=== PATIENT | male | born 1985 | race African-American/Black ===

== ENCOUNTER 2019-01-13 14:02 | Emergency (ER) | payer BC, OTHER ==
[2019-01-13] MEDS ORDERED: MAGNE/ALUM HYDROXD 30 ML UCUP ONE (18:41)
[2019-01-13] MEDS ORDERED: LIDOCAINE VISCOUS 2% SOLN 15 ML UDC ONE (18:41)
[2019-01-13] MEDS ORDERED: FAMOTIDINE 20 MG/2 ML VIAL IV ONE (18:41)
[2019-01-13 20:01] LABS: Absolute Lymphocytes (CBC) 1.6 K/uL (0.7-4.9); Absolute Monocytes 0.7 K/uL (0.1-1.3); Absolute Neutrophil 5.6 K/uL (1.8-8.0); Basophils % 0.3 % (0-1.3); Eosinophils % 1.2 % (0-4.4); Hematocrit 37.3 % (39.6-49.0); Lymphocytes % 20.5 % (15.3-44.8); MPV 8.2 fL (7.6-11.3); Monocytes % 8.2 % (3.3-12.3); RBC Red Blood Cell Count 4.38 M/uL (4.33-5.43)
[2019-01-13 21:37] LABS: AST/SGOT 178 U/L (15-37); Albumin 3.9 g/dL (3.4-5.0); Alkaline Phosphatase 109 U/L (45-117); BUN Blood Urea Nitrogen 8 mg/dL (7-18); Bicarbonate 29 mmol/L (21-32); Bilirubin Direct 0.4 mg/dL (0-0.2); Glucose Level 86 mg/dL (74-106); Lipase 137 U/L (73-393); Potassium 4.4 mmol/L (3.5-5.1); Protein, Total 8.8 g/dL (6.4-8.2); Sodium Level 139 mmol/L (136-145)
[2019-01-13 21:40] LABS: ALT/SGPT 356 U/L (12-78)
--- NOTE | 2019-01-13 22:07 | EDPHYS ---
Physician Documentation [facility] Name: Connor Velázquez Age: 33 yrs Sex: Male : 1985 Arrival Date: 01/13/2019 Time: 14:12 Bed 14 Private MD: None, None ED Physician Ted Aguilar HPI: 01/13 22:13 This 33 yrs old Black Male presents to ER via Ambulatory with complaints of Nausea, kb Abdominal Pain. 22:13 The patient presents with abdominal pain in the upper abdomen. Onset: The kb symptoms/episode began/occurred last night. The symptoms do not radiate. Associated signs and symptoms: Pertinent positives: nausea and vomiting, Pertinent negatives: anorexia, blood in stools, chest pain, constipation, diarrhea, dysuria, fever, headache, hematuria, palpitations, shortness of breath, testicular pain, vomiting blood. The symptoms are described as constant. Modifying factors: The symptoms are alleviated by nothing, the symptoms are aggravated by nothing. Severity of pain: At its worst the pain was moderate in the emergency department the pain is unchanged. The patient has experienced similar episodes in the past, a few times. The patient has not recently seen a physician. Pt reports upper abd pain that started at 2200 last night. Pt vomited last night and this morning, last time was 0300. Has had this pain in the past, but it normally doesn't last this long. Historical: - Allergies: 14:30 No Known Allergies; ss - Home Meds: 14:30 None [Active]; ss - PMHx: 14:30 None; ss - PSHx: 14:30 None; ss - Immunization history:: Adult Immunizations unknown. - Social history:: Smoking status: Patient/guardian denies using tobacco. - Ebola Screening: : Patient denies exposure to infectious person Patient denies travel to an Ebola-affected area in the 21 days before illness onset. ROS: 22:12 Constitutional: Negative for fever, chills, and weight loss, Cardiovascular: Negative kb for chest pain, palpitations, and edema, Respiratory: Negative for shortness of breath, cough, wheezing, and pleuritic chest pain, Back: Negative for injury and pain, : Negative for injury, bleeding, discharge, and swelling, MS/Extremity: Negative for injury and deformity, Skin: Negative for injury, rash, and discoloration, Neuro: Negative for headache, weakness, numbness, tingling, and seizure. 22:12 Abdomen/GI: Positive for abdominal pain, nausea and vomiting, Negative for diarrhea, constipation, abdominal cramps, abdominal distension, anorexia. Exam: 22:12 Constitutional: This is a well developed, well nourished patient who is awake, alert, kb and in no acute distress. Head/Face: Normocephalic, atraumatic. Chest/axilla: Normal chest wall appearance and motion. Nontender with no deformity. No lesions are appreciated. Cardiovascular: Regular rate and rhythm with a normal S1 and S2. No gallops, murmurs, or rubs. Normal PMI, no JVD. No pulse deficits. Respiratory: Lungs have equal breath sounds bilaterally, clear to auscultation and percussion. No rales, rhonchi or wheezes noted. No increased work of breathing, no retractions or nasal flaring. Back: No spinal tenderness. No costovertebral tenderness. Full range of motion. Skin: Warm, dry with normal turgor. Normal color with no rashes, no lesions, and no evidence of cellulitis. MS/ Extremity: Pulses equal, no cyanosis. Neurovascular intact. Full, normal range of motion. Neuro: Awake and alert, GCS 15, oriented to person, place, time, and situation. Cranial nerves II-XII grossly intact. Motor strength 5/5 in all extremities. Sensory grossly intact. Cerebellar exam normal. Normal gait. 22:12 Abdomen/GI: Inspection: abdomen appears normal, Bowel sounds: normal, in all quadrants, Palpation: soft, in all quadrants, nontender, in the right upper quadrant, left upper quadrant, right lower quadrant and left lower quadrant, mild abdominal tenderness, in the epigastric area. Vital Signs: 14:30 BP 151 / 100; Pulse 78; Resp 16; Temp 97.1(TE); Pulse Ox 97% on R/A; Weight 133.81 kg; ss Height 5 ft. 10 in. (177.80 cm); Pain 6/10; 18:00 BP 148 / 98; Pulse 75; Resp 18; Pulse Ox 100% on R/A; hj 19:00 BP 140 / 76; Pulse 70; Resp 17; Pulse Ox 98% ; rr5 20:00 BP 142 / 80; Pulse 80; Resp 16; Pulse Ox 99% ; rr5 21:00 BP 155 / 84; Pulse 80; Resp 17; Pulse Ox 98% ; rr5 22:25 BP 159 / 79; Pulse 70; Resp 16; Pulse Ox 99% ; rr5 14:30 Body Mass Index 42.33 (133.81 kg, 177.80 cm) ss MDM: 18:26 Patient medically screened. kb 22:11 Data reviewed: vital signs, nurses notes. Data interpreted: Pulse oximetry: on room air kb is 100 %. Interpretation: normal. Counseling: I had a detailed discussion with the patient and/or guardian regarding: the historical points, exam findings, and any diagnostic results supporting the discharge/admit diagnosis, lab results, radiology results, the need for further work-up and treatment in the hospital. Refusal of service: The patient/guardian displays adequate decision making capability and despite a detailed discussion of alternatives, benefits, risks, and consequences refuses: Admission to the hospital for further work-up and treatment. 01/13 18:27 Order name: CBC with Diff; Complete Time: 20:18 kb 01/13 21:07 Order name: Basic Metabolic Panel; Complete Time: 21:41 EDMS 01/13 21:07 Order name: Liver (Hepatic) Function; Complete Time: 21:41 EDMS 01/13 18:27 Order name: IV Saline Lock; Complete Time: 19:16 kb 01/13 18:27 Order name: Labs collected and sent; Complete Time: 19:26 kb 01/13 21:07 Order name: Lipase; Complete Time: 21:41 EDMS 01/13 21:42 Order name: US Abdomen Limited kb 01/13 19:53 Order name: Labs - recollect needed; Complete Time: 20:59 ms Administered Medications: 08:28 Drug: GI Cocktail without - (Maalox Suspension 30 ml, Lidocaine Liquid 2 % 15 hj ml) Route: PO; 19:16 Follow up: Response: No adverse reaction 19:23 Drug: Pepcid 20 mg Route: IVP; Site: left hand; rr5 22:25 Follow up: Response: No adverse reaction rr5 22:24 Not Given (AMA): NS 0.9% 1000 ml IV at 125 ml/hr continuous rr5 22:24 Not Given (AMA): Zosyn 3.375 grams IVPB once over 60 mins; (mix in NS 100 mL) rr5 Disposition: 01/14 06:58 Co-signature as Attending Physician, Ted Aguilar MD. rn Disposition: 01/13/19 22:06 Patient has left against medical advice. Impression: Cholelithiasis, Abnormal results of liver function studies. - Patients states they are going to Home. - Condition is Stable. Follow up: Emergency Department; When: As needed; Reason: Worsening of condition. Follow up: Private Physician; When: 2 - 3 days; Reason: Recheck today's complaints, Continuance of care, Re-evaluation by your physician. - Problem is new. - Symptoms are unchanged. Signatures: Dispatcher [employer] EDPR Ally Worley, BUSINESS OPERATIONS COORDINATOR-C BUSINESS OPERATIONS COORDINATOR-Tori Thacker ms, Roman, MD MD rn Smirch, Shelby, BLAYNE RN ss Avi Smith, BLAYNE RN Pete Ware RN RN rr5 Corrections: (The following items were deleted from the chart) 01/13 21:03 18:27 BASIC METABOLIC PANEL+C.LAB.BRZ ordered. EDPR EDMS 21:03 18:27 HEPATIC FUNCTION+C.LAB.BRZ ordered. EDPR EDMS 21:03 18:27 LIPASE+C.LAB.BRZ ordered. EDPR EDMS 22:28 22:06 01/13/2019 22:06 Patients has left against medical advice. Impression: rr5 Cholelithiasis; Abnormal results of liver function studies. Patient states they are going to Home. Condition is Stable. Follow up: Emergency Department; When: As needed; Reason: Worsening of condition. Follow up: Private Physician; When: 2 - 3 days; Reason: Recheck today's complaints, Continuance of care, Re-evaluation by your physician. Problem is new. Symptoms are unchanged. kb
--- NOTE | 2019-01-13 22:07 | ER ---
Nurse's Notes [facility] Name: Connor Velázquez Age: 33 yrs Sex: Male : 1985 Arrival Date: 01/13/2019 Time: 14:12 Bed 14 Private MD: None, None Diagnosis: Cholelithiasis;Abnormal results of liver function studies Presentation: 01/13 14:29 Presenting complaint: Patient states: epigastric discomfort with nausea and vomiting. ss Transition of care: patient was not received from another setting of care. Onset of symptoms was January 12, 2019. Risk Assessment: Do you want to hurt yourself or someone else? Patient reports no desire to harm self or others. Initial Sepsis Screen: Does the patient meet any 2 criteria? No. Patient's initial sepsis screen is negative. Does the patient have a suspected source of infection? No. Patient's initial sepsis screen is negative. Care prior to arrival: None. 14:29 Method Of Arrival: Ambulatory ss 14:29 Acuity: EDGARDO 3 ss Triage Assessment: 18:30 General: Appears in no apparent distress. uncomfortable, obese, Behavior is calm, hj cooperative, appropriate for age. Pain: Complains of pain in abdomen. EENT: No signs and/or symptoms were reported regarding the EENT system. Neuro: Level of Consciousness is awake, alert, obeys commands, Oriented to person, place, time, situation, Appropriate for age. Cardiovascular: Capillary refill < 3 seconds Patient's skin is warm and dry. Respiratory: Airway is patent Respiratory effort is even, unlabored, Respiratory pattern is regular, symmetrical. GI: Reports lower abdominal pain, upper abdominal pain, nausea. : No signs and/or symptoms were reported regarding the genitourinary system. Derm: No signs and/or symptoms reported regarding the dermatologic system. Musculoskeletal: No signs and/or symptoms reported regarding the musculoskeletal system. Historical: - Allergies: 14:30 No Known Allergies; ss - Home Meds: 14:30 None [Active]; ss - PMHx: 14:30 None; ss - PSHx: 14:30 None; ss - Immunization history:: Adult Immunizations unknown. - Social history:: Smoking status: Patient/guardian denies using tobacco. - Ebola Screening: : Patient denies exposure to infectious person Patient denies travel to an Ebola-affected area in the 21 days before illness onset. Screenin:30 Abuse screen: Denies threats or abuse. Denies injuries from another. Nutritional hj screening: No deficits noted. Tuberculosis screening: No symptoms or risk factors identified. Fall Risk None identified. Assessment: 18:30 Reassessment: see triage for assessment;. hj 19:15 General: Appears in no apparent distress. comfortable, Behavior is calm, cooperative, rr5 appropriate for age. Pain: Complains of pain in abdomen Pain does not radiate. Pain currently is 3 out of 10 on a pain scale. Quality of pain is described as aching, Pain began gradually, Is intermittent. Neuro: Level of Consciousness is awake, alert, obeys commands, Oriented to person, place, time, situation, Appropriate for age. Cardiovascular: Capillary refill < 3 seconds Patient's skin is warm and dry. Respiratory: Airway is patent Respiratory effort is even, unlabored, Respiratory pattern is regular, symmetrical. GI: Abdomen is obese, Reports lower abdominal pain, upper abdominal pain, nausea. : No signs and/or symptoms were reported regarding the genitourinary system. EENT: No signs and/or symptoms were reported regarding the EENT system. Derm: Skin temperature is warm. Musculoskeletal: Capillary refill < 3 seconds, Range of motion: intact in all extremities. 20:30 Reassessment: Patient appears in no apparent distress at this time. Patient is alert, rr5 oriented x 3, equal unlabored respirations, skin warm/dry/pink. awaiting for laboratory results. 21:30 Reassessment: blood recollection done. rr5 22:25 Reassessment: Patient appears in no apparent distress at this time. Patient is alert, rr5 oriented x 3, equal unlabored respirations, skin warm/dry/pink. no complaints made. ED provider spoke to patient for the admission. opted to go for AMA. AMA form signed. Vital Signs: 14:30 BP 151 / 100; Pulse 78; Resp 16; Temp 97.1(TE); Pulse Ox 97% on R/A; Weight 133.81 kg; ss Height 5 ft. 10 in. (177.80 cm); Pain 6/10; 18:00 BP 148 / 98; Pulse 75; Resp 18; Pulse Ox 100% on R/A; hj 19:00 BP 140 / 76; Pulse 70; Resp 17; Pulse Ox 98% ; rr5 20:00 BP 142 / 80; Pulse 80; Resp 16; Pulse Ox 99% ; rr5 21:00 BP 155 / 84; Pulse 80; Resp 17; Pulse Ox 98% ; rr5 22:25 BP 159 / 79; Pulse 70; Resp 16; Pulse Ox 99% ; rr5 14:30 Body Mass Index 42.33 (133.81 kg, 177.80 cm) ED Course: 14:12 Patient arrived in ED. mr 14:13 None, None is Private Physician. mr 14:30 Triage completed. ss 14:30 Arm band placed on right wrist. ss 18:23 Ally Worley FNP-C is PHCP. kb 18:23 Ted Aguilar MD is Attending Physician. kb 18:24 Avi Smith, BLAYNE is Primary Nurse. hj 19:00 Inserted saline lock: 22 gauge in left hand, using aseptic technique. ,using aseptic rr5 technique. morning shift staff. 19:10 Patient has correct armband on for positive identification. Placed in gown. Bed in low hj position. Call light in reach. Side rails up X 1. Adult w/ patient. 19:23 Pete Connell, RN is Primary Nurse. rr5 21:30 Inserted saline lock: 22 gauge in left antecubital area, using aseptic technique. Blood rr5 collected. 21:52 US Abdomen Limited In Process Unspecified. EDMS 22:25 No provider procedures requiring assistance completed. IV discontinued, intact, rr5 bleeding controlled, No redness/swelling at site. Pressure dressing applied. Administered Medications: 08:28 Drug: GI Cocktail without - (Maalox Suspension 30 ml, Lidocaine Liquid 2 % 15 hj ml) Route: PO; 19:16 Follow up: Response: No adverse reaction hj 19:23 Drug: Pepcid 20 mg Route: IVP; Site: left hand; rr5 22:25 Follow up: Response: No adverse reaction rr5 22:24 Not Given (AMA): NS 0.9% 1000 ml IV at 125 ml/hr continuous rr5 22:24 Not Given (AMA): Zosyn 3.375 grams IVPB once over 60 mins; (mix in NS 100 mL) rr5 Outcome: 22:25 AMA AMA form signed rr5 22:25 Condition: stable 22:25 Discharge instructions given to patient, Instructed on discharge instructions, to be checked by the surgeon for reevaluation. Demonstrated understanding of instructions. 22:28 Patient left the ED. rr5 Signatures: Dispatcher [employer] Ally Fink, MICHELLE HAN-Sydney Dueñas mr IsmaelKathleen deleon, RN RN ss Avi Smith RN RN Pete Connell RN RN rr5
--- NOTE | 2019-01-14 09:00 | RAD REPORT ---
EXAM DESCRIPTION: US - Abdomen Exam Limited - 01/13/2019 9:54 pm CLINICAL HISTORY: Abdominal pain Preliminary findings provided at the time of the study. COMPARISON: None. FINDINGS: Multiple sub centimeter sized mobile gallstones are present collecting near the neck of th e gallbladder. There is no wall thickening or pericholecystic fluid. No common duct stone or biliary tree dilatation identified. IMPRESSION: Cholelithiasis. No acute gallbladder or biliary tree finding evident.
== END 2019-01-13 22:28 | disposition left against medical advice (07) ==
LOC: ER 14:02
DX: K80.20 Calculus of gallbladder without cholecystitis without obstruction (principal); R10.10 Upper abdominal pain, unspecified; R11.2 Nausea with vomiting, unspecified; Z53.29 Procedure and treatment not carried out because of patient's decision for other reasons
CPT/HCPCS: 36415; 76705; 80048; 80076; 83690; 85025; 96374; 99284

== ENCOUNTER 2019-01-20 07:13 | Day surgery (SDC) | payer BC ==
[2019-01-16 10:47] LABS: Absolute Lymphocytes (CBC) 2.2 K/uL (0.7-4.9); Absolute Monocytes 0.8 K/uL (0.1-1.3); Absolute Neutrophil 4.9 K/uL (1.8-8.0); Basophils % 0.4 % (0-1.3); Eosinophils % 2.2 % (0-4.4); Hematocrit 45.2 % (39.6-49.0); Lymphocytes % 27.3 % (15.3-44.8); MPV 8.6 fL (7.6-11.3); Monocytes % 9.6 % (3.3-12.3); RBC Red Blood Cell Count 5.41 M/uL (4.33-5.43)
[2019-01-16 10:58] LABS: BUN Blood Urea Nitrogen 13 mg/dL (7-18); Bicarbonate 28 mmol/L (21-32); Glucose Level 117 mg/dL (74-106); Potassium 3.9 mmol/L (3.5-5.1); Sodium Level 136 mmol/L (136-145)
[2019-01-16 11:00] LABS: Bilirubin Direct 0.3 mg/dL (0-0.2); Protein, Total 8.9 g/dL (6.4-8.2)
[~2019-01-20 07:13] MED LIST: CEFAZOLIN/SWI 2gm 2 GM/20 ML SYR ONE; Ringers Lactate 1,000 ML IV ONE; SCOPOLAMINE HYDROBROMIDE PATCH TD ONE
[2019-01-20] MEDS ORDERED: Ringers Lactate 1,000 ML IV ONE ×2 (08:02→09:44)
[2019-01-20] MEDS ORDERED: CEFOXITIN/SWI 1gm 0 GM/0 ML SYR ONE (08:03)
[2019-01-20] MEDS ORDERED: PROPOFOL 200 MG/20 ML VIAL IV ONE (08:26)
[2019-01-20] MEDS ORDERED: ROCURONIUM 50 MG/5 ML VIAL IV ONE (08:27)
[2019-01-20] MEDS ORDERED: MIDAZOLAM HCL 2 MG/2 ML INJ ONE (08:27)
[2019-01-20] MEDS ORDERED: LIDOCAINE 1% MPF 5 ML VIAL ONE (08:27)
[2019-01-20] MEDS ORDERED: FENTANYL CITR 100 MCG/2 ML ONE ×2 (08:27→09:05)
[2019-01-20] MEDS ORDERED: BUPIVACAINE 0.5% PF 10 ML VIAL ONE (08:29)
[2019-01-20] MEDS ORDERED: CEFOXITIN/SWI 1gm 1 GM/10 ML SYR ONE (09:08)
[2019-01-20] MEDS ORDERED: DEXAMETHASONE 4 MG/ML VIAL ONE (09:15)
[2019-01-20] MEDS ORDERED: KETOROLAC 30 MG/ML INJ ONE (09:15)
[2019-01-20] MEDS ORDERED: ONDANSETRON 4 MG/2 ML VIAL ONE (09:15)
--- NOTE | 2019-01-20 09:36 | P.BOP ---
Preoperative diagnosis: acute cholecystitis, symptomatic cholelithiasis, morbid obesity Postoperative diagnosis: same Primary procedure: Laparoscopic cholecystectomy Test Manager: Ruby Renteria) Estimated blood loss: <10cc Specimen: gb Findings: as above Anesthesia: General Complications: None Transferred to: Recovery Room Condition: Good
[2019-01-20] MEDS ORDERED: GLYCOPYRROLATE 0.2 MG/ML SYR ONE ×2 (09:40→09:41)
[2019-01-20] MEDS ORDERED: NEOSTIGMINE 1 MG/ML -10 ML VIAL ONE (09:41)
[2019-01-20] MEDS ORDERED: Mastisol Adhesive Liq ONE (09:47)
[2019-01-20] MEDS: HYDROMORPHONE HCL 1 MG/ML INJ ONE ×2 (10:09→10:15)
[2019-01-20] MEDS ORDERED: CODEINE 30MG/APAP 300MG TAB ONE (11:02)
--- NOTE | 2019-01-20 20:54 | OP ---
Date of Procedure: 01/20/2019 Surgeon: Avi Saini MD Recycle Driver: LORI Esposito. Preoperative Diagnoses: Acute cholecystitis, symptomatic cholelithiasis, morbid obesity. Postoperative Diagnoses: Acute cholecystitis, symptomatic cholelithiasis, morbid obesity. Procedure: Laparoscopic cholecystectomy. Estimated Blood Loss: Less than 10 cc. Specimen: Gallbladder. Anesthesia: General plus local. Indications: This is a case of a male, who comes to us with above diagnosis. Fully explained the be nefits, alternatives, and risks of laparoscopic, possible open cholecystectomy, which include, but no t limited to infection, bleeding, damage to adjacent structures, anesthesia complication, choledochol ithiasis, bile leak, pancreatitis, [place], and even . He also understands this may not relieve any symptoms. He might need more than one surgical intervention. He understood, signed a consent. Description Of Procedure: The patient was brought to the operating room, placed in supine position. Anesthesia was induced without complication. Abdominal area was prepped and draped in the usual yoly rile fashion. Marcaine 0.5% was injected for local anesthetic, followed by sharp incision of the ski n in the infraumbilical region. Incision was carried down to fascia, which was opened under direct v ision. Peritoneum was encountered, opened under direct vision. Vicryl #1 was placed inside the fasc ia. Elaine trocar was carefully introduced. No bleeding was obtained. I placed 3 more trocars in t he right upper quadrant under direct visualization, 5 mm each one of them. This allow me to put a gr asper in the fundus of the gallbladder, remove some adhesions from the omentum to the gallbladder and then put another grasper in the infundibulum, retracted the gallbladder in the inferolateral fashion , exposing the triangle of Calot and obtaining critical view of safety. Cystic duct and cystic arter y were clearly isolated and freed circumferentially and a connection between those and the gallbladde r was clearly identified. I proceeded to ligate those by using at least 3 clips proximal, 1 clip dis neto, ligation in middle and same was done with the cystic artery. No bile leak. No bleeding. The g allbladder was removed from liver using Bovie cauterizer and removed from abdominal cavity using Endo Catch through the umbilical incision. The area was inspected once again. No bile leak. No bleeding . The clips were intact. At that moment, I proceeded to remove the trocars under direct vision. De flated pneumoperitoneum, closed the fascia with #1 Vicryl. Irrigated subcu tissue, closed that with 3-0 chromic and skin in subcuticular fashion with 3-0 chromic and Steri-Strips on top. Sponge count and instrument counts were correct. The patient tolerated the procedure well. The patient was sent to recovery in stable condition. Disposition: Home. Activity: As tolerated. No heavy lifting. Followup: Follow up in my office in 1 week. Call for appointment [phone]. Keep the area dry for 48 hours, then may shower. Keep Steri-Strips intact. Medications: Tylenol No. 3 q.4 hours p.r.n. pain and Zofran 4 every 6 p.r.n. nausea. EVELIN/MICHELLE Voice ID: [id number] Report ID: [id number]
== END 2019-01-20 12:05 | disposition home or self-care (01) ==
LOC: OR 07:13
PROVIDERS: ATTEND Surgery
PROC: 0FT44ZZ Resection of Gallbladder, Percutaneous Endoscopic Approach (ICD-10-PCS; principal; 2019-01-20 08:30)
DX: K80.12 Calculus of gallbladder with acute and chronic cholecystitis without obstruction (principal); I10 Essential (primary) hypertension; E66.01 Morbid (severe) obesity due to excess calories; Z68.41 Body mass index [BMI] 40.0-44.9, adult
CPT/HCPCS: 36415; 80048; 80076; 82150; 83690; 85025; 88304; J0690; J1170; J2250; J2405; J2704; J2710; J3010

== ENCOUNTER 2021-10-04 12:32 | Emergency (ER) | payer BC, SELFPAY ==
--- NOTE | 2021-10-04 15:05 | RAD REPORT ---
EXAM DESCRIPTION: RAD - Os Calcis (Calcaneus) Heel - 10/04/2021 2:26 pm CLINICAL HISTORY: PAIN, burning pain bottom of foot, no trauma history COMPARISON: No comparisons FINDINGS: No fracture is present. No acute or pathologic bone process identifiable. No bony coalitio n is seen. Talocalcaneal joint space is unremarkable. No suspicious finding in the plantar soft tissu es. Patient does have very earliest stages of Achilles and plantar tendons spurring. No air or foreig n body in the soft tissues. IMPRESSION: As detailed above, no acute or suspicious finding identifiable.
--- NOTE | 2021-10-04 15:38 | ER ---
Nurse's Notes [facility] Name: Connor Velázquez Age: 36 yrs Sex: Male : 1985 Arrival Date: 10/04/2021 Time: 12:36 Bed External Waiting Private MD: Diagnosis: Achilles tendinitis, left leg Presentation: 10/04 13:59 Chief complaint: Patient states: Jim night I felt a pain right above my left heel, ld1 it has gradually become worse. Pt describes pain being right above left heel - thinks it could be his tendon. Coronavirus screen: At this time, the client does not indicate any symptoms associated with coronavirus-19. Ebola Screen: No symptoms or risks identified at this time. Initial Sepsis Screen: Does the patient meet any 2 criteria? No. Patient's initial sepsis screen is negative. Does the patient have a suspected source of infection? No. Patient's initial sepsis screen is negative. Risk Assessment: Do you want to hurt yourself or someone else? Patient reports no desire to harm self or others. Onset of symptoms was October 04, 2021. 13:59 Method Of Arrival: Ambulatory ld1 13:59 Acuity: EDGARDO 4 ld1 Triage Assessment: 14:01 General: Appears in no apparent distress. comfortable, Behavior is calm, cooperative, ld1 appropriate for age. Pain: Complains of pain in left Achilles and left heel Pain does not radiate. Pain currently is 7 out of 10 on a pain scale. Quality of pain is described as burning, Pain began gradually, Is continuous. EENT: No signs and/or symptoms were reported regarding the EENT system. Neuro: Level of Consciousness is awake, alert, obeys commands, Oriented to person, place, time, situation, Appropriate for age. Cardiovascular: Capillary refill < 3 seconds Patient's skin is warm and dry. Respiratory: Airway is patent Respiratory effort is even, unlabored, Respiratory pattern is regular, symmetrical. GI: Abdomen is round non-distended. : No signs and/or symptoms were reported regarding the genitourinary system. Derm: No signs and/or symptoms reported regarding the dermatologic system. Musculoskeletal: Reports pain in left foot. Historical: - Allergies: 14: No Known Allergies; ld1 - Home Meds: 14: None [Active]; ld1 - PMHx: 14:01 None; ld1 - PSHx: 14:01 Cholecystectomy; ld1 - Immunization history:: Adult Immunizations up to date, Client reports having NOT received the Covid vaccine. - Social history:: Smoking status: Patient denies any tobacco usage or history of. Patient uses alcohol, on a daily basis. Patient/guardian denies using street drugs. Screenin:54 Abuse screen: Denies threats or abuse. Denies injuries from another. Nutritional ss screening: No deficits noted. Tuberculosis screening: Never had TB. Fall Risk None identified. Assessment: 15:54 Reassessment: Patient appears in no apparent distress at this time. Patient and/or ss family updated on plan of care and expected duration. Pain level reassessed. Patient is alert, oriented x 3, equal unlabored respirations, skin warm/dry/pink. Vital Signs: 13:59 BP 161 / 98; Pulse 86; Resp 18; Temp 97.3(TE); Pulse Ox 100% on R/A; Weight 131.54 kg; ld1 Height 5 ft. 11 in. (180.34 cm); Pain 8/10; 13:59 Body Mass Index 40.45 (131.54 kg, 180.34 cm) ld1 ED Course: 12:36 Patient arrived in ED. ds1 14:01 Triage completed. ld1 14:01 Arm band placed on left wrist. ld1 14:23 XRAY Heel Os Calcis (calcaneus) In Process Unspecified. EDMS 14:27 Jean Calvillo PA is PHCP. cp 14:27 Jean Bradley MD is Attending Physician. cp 15:37 Abhi Scott MD is Referral Physician. cp 15:54 Kathleen Vargas RN is Primary Nurse. ss 15:54 Patient has correct armband on for positive identification. Bed in low position. Call ss light in reach. 15:54 No provider procedures requiring assistance completed. Patient did not have IV access ss during this emergency room visit. Walking boot applied to L foot. Administered Medications: No medications were administered Outcome: 15:38 Discharge ordered by . cp 15:54 Discharged to home ambulatory. ss 15:54 Condition: good 15:54 Discharge instructions given to patient, family, Instructed on discharge instructions, follow up and referral plans. Demonstrated understanding of instructions, follow-up care, medications. 15:55 Patient left the ED. ss Signatures: Dispatcher [employer] EDMA FlemingLesai ds1 Kathleen Vargas RN RN ss Jean Calvillo PA PA cp Dibbern, Lauren, RN RN ld1
--- NOTE | 2021-10-04 15:38 | EDPHYS ---
Physician Documentation [facility] Name: Connor Velázquez Age: 36 yrs Sex: Male : 1985 Arrival Date: 10/04/2021 Time: 12:36 Bed External Waiting Private MD: PEACE Physician Jean Bradley HPI: 10/04 14:20 This 36 yrs old Black Male presents to ER via Ambulatory with complaints of Ankle Pain. cp 14:20 The patient presents with pain, that is acute, tenderness. cp 14:20 The complaints affect the left heel. cp 14:20 Context: resulted from an unknown cause, the patient can fully bear weight, the patient cp is able to ambulate, with mild difficulty, Problem is a result from a previous injury: No. Onset: The symptoms/episode began/occurred 4 day(s) ago. Associated signs and symptoms: Pertinent negatives calf tenderness, fever, warmth. Treatment prior to arrival includes: no previous treatment. Historical: - Allergies: 14: No Known Allergies; ld1 - Home Meds: 14: None [Active]; ld1 - PMHx: 14: None; ld1 - PSHx: 14: Cholecystectomy; ld1 - Immunization history:: Adult Immunizations up to date, Client reports having NOT received the Covid vaccine. - Social history:: Smoking status: Patient denies any tobacco usage or history of. Patient uses alcohol, on a daily basis. Patient/guardian denies using street drugs. ROS: 14:25 MS/extremity: Positive for pain, tenderness, of the left heel, Negative for injury or cp acute deformity, decreased range of motion, paresthesias. 14:25 Eyes: Negative for injury, pain, redness, and discharge. cp 14:25 Constitutional: Negative for body aches, chills, fever. 14:25 Cardiovascular: Negative for chest pain. 14:25 Respiratory: Negative for cough, shortness of breath, wheezing. 14:25 Abdomen/GI: Negative for abdominal pain. 14:25 Skin: Negative for rash. 14:25 Neuro: Negative for altered mental status, headache, weakness. 14:25 All other systems are negative. Exam: 14:30 Constitutional: The patient appears in no acute distress, alert, awake, non-toxic, well cp developed, well nourished. 14:30 Head/Face: Normocephalic, atraumatic. cp 14:30 Cardiovascular: Rate: normal. 14:30 Respiratory: the patient does not display signs of respiratory distress, Respirations: normal, no use of accessory muscles, no retractions. 14:30 Back: pain, is absent, ROM is normal. 14:30 Musculoskeletal/extremity: Extremities: grossly normal except: noted in the left heel: pain, tenderness, mild swelling noted at Achilles insertion site of left heel where pain and tenderness is noted, ROM: limited active range of motion due to pain, flexion of left foot, Perfusion: the extremity is normally perfused throughout, Sensation intact. 14:30 Skin: cellulitis, is not appreciated, no rash present. Vital Signs: 13:59 BP 161 / 98; Pulse 86; Resp 18; Temp 97.3(TE); Pulse Ox 100% on R/A; Weight 131.54 kg; ld1 Height 5 ft. 11 in. (180.34 cm); Pain 8/10; 13:59 Body Mass Index 40.45 (131.54 kg, 180.34 cm) ld1 MDM: 15:00 Differential diagnosis: tendonitis, ruptured tendon, DVT. cp 15:38 Patient medically screened. cp 15:38 Data reviewed: vital signs, nurses notes, radiologic studies, plain films. cp 15:38 Test interpretation: by ED physician or midlevel provider: plain radiologic studies. cp Counseling: I had a detailed discussion with the patient and/or guardian regarding: the historical points, exam findings, and any diagnostic results supporting the discharge/admit diagnosis, radiology results, the need for outpatient follow up, a orthopedic surgeon. ED course: Recommend rest, apply ice and NSAIDs for pain. Patient declined walking boot for comfort. Will discharge to home for continued monitoring. 10/04 14:09 Order name: XRAY Heel Os Calcis (calcaneus) ld1 Administered Medications: No medications were administered Disposition Summary: 10/04/21 15:38 Discharge Ordered Location: Home cp Problem: new cp Symptoms: have improved cp Condition: Stable cp Diagnosis - Achilles tendinitis, left leg cp Followup: cp - With: Abhi Scott MD - When: 1 week - Reason: pain continues Discharge Instructions: - Discharge Summary Sheet cp - Achilles Tendinitis cp - Heat Therapy cp Forms: - Medication Reconciliation Form cp - Work release form [id number] - Thank You Letter cp - Antibiotic Education cp - Prescription Opioid Use cp Prescriptions: - Naprosyn 500 mg Oral Tablet - take 1 tablet by ORAL route 2 times per day take with food; 20 tablet; Refills: cp 0, Product Selection Permitted Addendum: 10/06/2021 09:09 Co-signature as Attending Physician, Jean Bradley MD I agree with the assessment and c cherry plan of care. Signatures: Dispatcher [employer] EDJean Castro MD MD cha Page, Corey, PA PA Yvrose Adames, RN RN ld1
[2021-10-04 16:06] VITALS: BP 161/98; TEMP 97.3; O2SAT 100
== END 2021-10-04 15:55 | disposition home or self-care (01) ==
LOC: ER 12:32
DX: M76.62 Achilles tendinitis, left leg (principal)
CPT/HCPCS: 73650; 99283

== ENCOUNTER 2022-12-17 22:16 | Inpatient (IN) | payer SELFPAY ==
[2022-12-17] MEDS ORDERED: FAMOTIDINE 20 MG/2 ML VIAL IV ONE (22:45)
[2022-12-17] MEDS ORDERED: NA CHLORIDE 0.9% 1,000 ML ONE (22:45)
[2022-12-17 23:02] LABS: Urine Blood 2+ (Negative); Urine Glucose Negative (Negative); Urine Protein 3+ (Negative); Urine pH 5.5 (5.0-7.0)
[2022-12-17 23:27] LABS: Renal Epithelial <5 /HPF (None Seen); Urine Bacteria <20 /HPF (<20); Urine RBC <5 /HPF (None Seen)
[2022-12-17 23:47] LABS: Absolute Lymphocytes (CBC) 1.2 K/uL (0.7-4.9); Lymphocytes % 13.8 % (15.3-44.8); MCV 88.7 fL (80-100); MPV 8.6 fL (7.6-11.3); RBC Red Blood Cell Count 2.47 M/uL (4.33-5.43)
[2022-12-17] MEDS ORDERED: METOPROLOL TAR 50 MG TAB ONE (23:49)
[2022-12-18 00:22] LABS: RBC Red Blood Cell Count 2.5 M/uL (4.33-5.43)
[2022-12-18 01:01] LABS: Albumin 3.4 g/dL (3.4-5.0); Bilirubin Total 0.4 mg/dL (0.2-1.0); Protein, Total 8.5 g/dL (6.4-8.2); Thyroid Stimulating Hormone 0.345 uIU/mL (0.358-3.740)
[2022-12-18 01:02] LABS: Potassium 5.5 mmol/L (3.5-5.1)
--- NOTE | 2022-12-18 01:49 | EDPHYS ---
Physician Documentation [facility] Name: Connor Velázquez Age: 37 yrs Sex: Male : 1985 Arrival Date: 12/17/2022 Time: 22:20 Bed 14 Private MD: ED Physician Ethan Albarado HPI: 12/17 22:44 This 37 yrs old Black Male presents to ER via Unassigned with complaints of Vomiting, snw Weakness. 22:44 The patient presents to the emergency department with nausea, vomiting. The patient snw presents to the emergency department with diarrhea. Onset: The symptoms/episode began/occurred 1 month(s) ago, and became persistent. Associated signs and symptoms: Pertinent positives: diarrhea, nausea, vomiting. The patient has experienced similar episodes in the past, multiple times. The patient has not recently seen a physician. Historical: - Allergies: 22:25 No Known Allergies; eh3 - Home Meds: 23:35 None [Active]; eh3 - PMHx: 23:35 None; eh3 - PSHx: 23:35 Cholecystectomy; eh3 - Immunization history:: Adult Immunizations not up to date. - Social history:: Smoking status: Patient denies any tobacco usage or history of. Patient/guardian denies using alcohol. ROS: 22:43 Constitutional: Negative for fever, chills, and weight loss, Eyes: Negative for injury, snw pain, redness, and discharge, ENT: Negative for injury, pain, and discharge, Neck: Negative for injury, pain, and swelling, Cardiovascular: Negative for chest pain, palpitations, and edema, Respiratory: Negative for shortness of breath, cough, wheezing, and pleuritic chest pain, Back: Negative for injury and pain, : Negative for injury, bleeding, discharge, and swelling, MS/Extremity: Negative for injury and deformity, Skin: Negative for injury, rash, and discoloration, Neuro: Negative for headache, weakness, numbness, tingling, and seizure, Psych: Negative for depression, anxiety, suicide ideation, homicidal ideation, and hallucinations. 22:43 Abdomen/GI: Positive for abdominal pain, nausea and vomiting, diarrhea. Exam: 22:43 Constitutional: This is a well developed, well nourished patient who is awake, alert, snw and in no acute distress. Head/Face: Normocephalic, atraumatic. Eyes: Pupils equal round and reactive to light, extra-ocular motions intact. Lids and lashes normal. Conjunctiva and sclera are non-icteric and not injected. Cornea within normal limits. Periorbital areas with no swelling, redness, or edema. ENT: Nares patent. No nasal discharge, no septal abnormalities noted. Tympanic membranes are normal and external auditory canals are clear. Oropharynx with no redness, swelling, or masses, exudates, or evidence of obstruction, uvula midline. Mucous membranes moist. Neck: Trachea midline, no thyromegaly or masses palpated, and no cervical lymphadenopathy. Supple, full range of motion without nuchal rigidity, or vertebral point tenderness. No Meningismus. Chest/axilla: Normal chest wall appearance and motion. Nontender with no deformity. No lesions are appreciated. Cardiovascular: Regular rate and rhythm with a normal S1 and S2. No gallops, murmurs, or rubs. Normal PMI, no JVD. No pulse deficits. Respiratory: Lungs have equal breath sounds bilaterally, clear to auscultation and percussion. No rales, rhonchi or wheezes noted. No increased work of breathing, no retractions or nasal flaring. Abdomen/GI: Soft, non-tender, with normal bowel sounds. No distension or tympany. No guarding or rebound. No evidence of tenderness throughout. Back: No spinal tenderness. No costovertebral tenderness. Full range of motion. Skin: Warm, dry with normal turgor. Normal color with no rashes, no lesions, and no evidence of cellulitis. MS/ Extremity: Pulses equal, no cyanosis. Neurovascular intact. Full, normal range of motion. Neuro: Awake and alert, GCS 15, oriented to person, place, time, and situation. Cranial nerves II-XII grossly intact. Motor strength 5/5 in all extremities. Sensory grossly intact. Cerebellar exam normal. Normal gait. Psych: Awake, alert, with orientation to person, place and time. Behavior, mood, and affect are within normal limits. Vital Signs: 22:25 BP 176 / 117; Pulse 94; Resp 18; Temp 98.0(O); Pulse Ox 98% on R/A; Weight 104.33 kg; eh3 Height 5 ft. 11 in. (180.34 cm); 23:30 BP 168 / 111; Pulse 94; Resp 18; Pulse Ox 100% on R/A; 3 12/18 01:00 BP 166 / 110; Pulse 72; Resp 20; Pulse Ox 100% ; ha1 02:00 BP 142 / 80; Pulse 85; Resp 18 S; Pulse Ox 99% on R/A; ha1 03:00 BP 137 / 62; Pulse 84; Resp 18; Temp 98.6; Pulse Ox 99% on R/A; ha1 04:00 BP 142 / 89; Pulse 84; Resp 20 S; Pulse Ox 99% ; ha1 12/17 22:25 Body Mass Index 32.08 (104.33 kg, 180.34 cm) 3 MDM: 12/17 22:22 Patient medically screened. [facility] 12/18 01:48 Differential diagnosis: Nonspecific abd pain, gastritis, pancreatitis, viral snw gastroenteritis, gastroenteritis. Data reviewed: vital signs, nurses notes, lab test result(s), EKG, radiologic studies, CT scan. Management of patient was discussed with the following: Hospitalist: Macy Lr. I considered the following discharge prescriptions or medication management in the emergency department Medications were administered in the Emergency Department. See MAR. Independent interpretation of the following test(s) in the Emergency Department CT Scan: My interpretation is right kidney with stranding. Care significantly affected by the following chronic conditions: crohn's. Counseling: I had a detailed discussion with the patient and/or guardian regarding: the historical points, exam findings, and any diagnostic results supporting the discharge/admit diagnosis, the presence of at least one elevated blood pressure reading (>120/80) during this emergency department visit, lab results, radiology results, the need for further work-up and treatment in the hospital. Special discussion:. 12/17 22:31 Order name: CBC with Diff snw 12/17 22:31 Order name: CMP snw 12/17 22:31 Order name: Lipase snw 12/17 22:31 Order name: Urine Microscopic Only snw 12/17 23:02 Order name: Urine Dipstick-Ancillary; Complete Time: 23:04 EDMS 12/17 23:33 Order name: Urine Microscopic Only; Complete Time: 23:37 EDMS 12/17 23:56 Order name: CBC with Automated Diff; Complete Time: 00:00 EDMS 12/18 00:06 Order name: TSH 12/18 00:06 Order name: TS 12/18 00:06 Order name: Retic Count 12/18 00:07 Order name: Fecal Leukocyte Stain 12/18 00:07 Order name: Ova And Parasites 12/18 00:07 Order name: Stool Culture 12/18 00:25 Order name: Retic Count; Complete Time: 00:26 ED12/18 01:03 Order name: Comprehensive Metabolic Panel; Complete Time: 01:03 12/18 01:03 Order name: Lipase; Complete Time: 01:03 ED12/18 01:03 Order name: Thyroid Stimulating Hormone; Complete Time: 01:03 ED12/18 01:05 Order name: Hepatitis Panel 12/18 01:16 Order name: Phosphorus 12/18 01:16 Order name: Osmolality, Serum 12/18 01:16 Order name: Urine Sodium Random 12/18 01:16 Order name: Urine Potassium Random 12/18 01:40 Order name: Pth,Intact 12/18 01:45 Order name: UDS 12/18 02:01 Order name: SARS RAPID sb4 12/18 03:05 Order name: SARS-COV-2 Antigen Rapid; Complete Time: 03:07 12/18 03:37 Order name: Vitamin D, 25 (OH), TOTAL; Complete Time: 04:48 12/18 04:22 Order name: Phosphorus; Complete Time: 04:48 12/18 04:22 Order name: C-Reactive Protein; Complete Time: 04:48 12/18 04:36 Order name: Osmolality, Serum; Complete Time: 04:48 12/17 22:31 Order name: IV Saline Lock; Complete Time: 23:31 12/17 22:31 Order name: Labs collected and sent; Complete Time: 23:31 12/17 22:31 Order name: Urine Dipstick-Ancillary (obtain specimen); Complete Time: 23:05 12/18 00:01 Order name: Chest Pa And Lat (2 Views) XRAY 12/18 00:52 Order name: Recheck VS 12/18 01:45 Order name: US Rp Exam Complete 12/18 02:04 Order name: EKG - Nurse/Tech; Complete Time: 03:22 sb4 12/18 05:05 Order name: Type and Screen EDMS 12/18 05:10 Order name: Fecal Leukocyte Stain EDMS Administered Medications: 12/17 23:15 Drug: NS 0.9% 1000 ml Route: IV; Rate: 1 bolus; Site: right antecubital; 3 23:15 Drug: Pepcid (famotidine) 20 mg Route: IVP; Site: right antecubital; 3 23:45 Drug: Metoprolol TARTRATE 50 mg Route: PO; [facility] 12/18 01:06 CANCELLED (Other Intervention Used): D5W with Sodium Bicarbonate 100 mEq/L 1000 ml IV snw at 80 calculated rate once 04:49 Drug: D5W 1000 ml, Sodium Bicarbonate 150 mEq Route: IV; Rate: 80 ml/hr; Site: right ha1 antecubital; 05:14 Follow up: Response: No adverse reaction; IV Status: Infusion continued; IV Intake: ha1 100ml Disposition: 01:55 Co-signature as Attending Physician, Ethan CHAMBERLAIN reviewed the patient's care ms3 provided by the Advanced Practice Provider and agree with the diagnosis and treatment plan. Disposition Summary: 12/18/22 01:48 Hospitalization Ordered Hospitalization Status: Inpatient Admission snw Location: Telemetry/[facility] (Inpatient) snw Condition: Stable snw Problem: new snw Symptoms: have worsened snw Bed/Room Type: Standard snw Provider: Luiz Nunez(12/18/22 02:59) sb4 Room Assignment: [facility](12/18/22 03:07) Diagnosis - Acute renal failure snw - Autoimmune disease - crohns snw Forms: - Medication Reconciliation Form snw - SBAR form snw Signatures: Dispatcher [employer] EDMS Adriane Lindsey RN RN mw Waters, Shelly, FNP-[place] HAN-CsnEthan Spears DO DO ms3 Ashwini Mcallister RN RN [facility] Sophie Chan RN RN 1 Ashely Nova PAJeffreyC PA-C sb4 Corrections: (The following items were deleted from the chart) 01:06 01:05 D5W with Sodium Bicarbonate 100 mEq/L 1000 ml IV at 80 calculated rate once snw ordered. snw 02:59 01:48 Sharon Shaw snw sb4 03:07 01:48 snw mw
--- NOTE | 2022-12-18 01:49 | ER ---
Nurse's Notes [facility] Name: Connor Velázquez Age: 37 yrs Sex: Male : 1985 Arrival Date: 12/17/2022 Time: 22:20 Bed 14 Private MD: Diagnosis: Acute renal failure;Autoimmune disease - crohns Presentation: 12/17 22:25 Chief complaint: Patient states: N/V/D for past several days. Coronavirus screen: [facility] Vaccine status: Patient reports receiving the 2nd dose of the covid vaccine. Ebola Screen: No symptoms or risks identified at this time. Initial Sepsis Screen: Does the patient meet any 2 criteria? No. Patient's initial sepsis screen is negative. Does the patient have a suspected source of infection? No. Patient's initial sepsis screen is negative. Risk Assessment: Do you want to hurt yourself or someone else? Patient reports no desire to harm self or others. Onset of symptoms was December 17, 2022. 22:25 Method Of Arrival: Ambulatory [facility] 22:25 Acuity: EDGARDO 3 eh3 Triage Assessment: 22:25 General: Appears in no apparent distress. uncomfortable, Behavior is calm, cooperative, eh3 appropriate for age. Pain: Denies pain. Neuro: Level of Consciousness is awake, alert, obeys commands, Oriented to person, place, time, situation. Cardiovascular: Capillary refill < 3 seconds Patient's skin is warm and dry. Respiratory: Airway is patent Respiratory effort is even, unlabored, Respiratory pattern is regular, symmetrical. GI: Abdomen is round non-distended, Reports diarrhea, intolerance of fluids, intolerance of food, nausea, vomiting. : No signs and/or symptoms were reported regarding the genitourinary system. Derm: No signs and/or symptoms reported regarding the dermatologic system. Skin is pink, warm \T\ dry. Musculoskeletal: No signs and/or symptoms reported regarding the musculoskeletal system. Circulation, motion, and sensation intact. Range of motion: intact in all extremities. Historical: - Allergies: 22:25 No Known Allergies; eh3 - Home Meds: 23:35 None [Active]; eh3 - PMHx: 23:35 None; eh3 - PSHx: 23:35 Cholecystectomy; eh3 - Immunization history:: Adult Immunizations not up to date. - Social history:: Smoking status: Patient denies any tobacco usage or history of. Patient/guardian denies using alcohol. Screenin:25 [facility] ED Fall Risk Assessment (Adult) History of falling in the last 3 months, 3 including since admission No falls in past 3 months (0 pts) Confusion or Disorientation No (0 pts) Intoxicated or Sedated No (0 pts) Impaired Gait No (0 pts) Mobility Assist Device Used No (0 pt) Altered Elimination Yes (1 pt) Score/Fall Risk Level 0 - 2 = Low Risk. Abuse screen: Denies threats or abuse. Denies injuries from another. Nutritional screening: No deficits noted. Tuberculosis screening: No symptoms or risk factors identified. Assessment: 22:25 Reassessment: No changes from previously documented assessment. See triage assessment. eh3 GI: Abdomen is round non-distended, Reports diarrhea, intolerance of fluids, intolerance of food, nausea, vomiting. 23:30 Reassessment: Patient appears in no apparent distress at this time. Patient and/or 3 family updated on plan of care and expected duration. Pain level reassessed. Patient is alert, oriented x 3, equal unlabored respirations, skin warm/dry/pink. 12/18 01:00 Reassessment: Patient and/or family updated on plan of care and expected duration. Pain ha1 level reassessed. Patient is alert, oriented x 3, equal unlabored respirations, skin warm/dry/pink. 01:00 General: Appears comfortable, Behavior is calm, cooperative. Neuro: Level of ha1 Consciousness is awake, alert, obeys commands, Oriented to person, place, time, situation. Cardiovascular: Capillary refill < 3 seconds Patient's skin is warm and dry. GI: Abdomen is non-distended, obese, Reports nausea. : No signs and/or symptoms were reported regarding the genitourinary system. EENT: No deficits noted. No signs and/or symptoms were reported regarding the EENT system. Musculoskeletal: Circulation, motion, and sensation intact. Range of motion: intact in all extremities. 02:00 Reassessment: Patient and/or family updated on plan of care and expected duration. Pain ha1 level reassessed. Patient is alert, oriented x 3, equal unlabored respirations, skin warm/dry/pink. Patient denies pain at this time. 03:00 Reassessment: Patient and/or family updated on plan of care and expected duration. Pain ha1 level reassessed. Patient is alert, oriented x 3, equal unlabored respirations, skin warm/dry/pink. Patient denies pain at this time. 04:00 Reassessment: Patient and/or family updated on plan of care and expected duration. Pain ha1 level reassessed. Patient is alert, oriented x 3, equal unlabored respirations, skin warm/dry/pink. Patient denies pain at this time. 05:00 Reassessment: Patient and/or family updated on plan of care and expected duration. Pain ha1 level reassessed. Patient is alert, oriented x 3, equal unlabored respirations, skin warm/dry/pink. Patient denies pain at this time. Vital Signs: 12/17 22:25 BP 176 / 117; Pulse 94; Resp 18; Temp 98.0(O); Pulse Ox 98% on R/A; Weight 104.33 kg; [facility] Height 5 ft. 11 in. (180.34 cm); 23:30 BP 168 / 111; Pulse 94; Resp 18; Pulse Ox 100% on R/A; [facility] 12/18 01:00 BP 166 / 110; Pulse 72; Resp 20; Pulse Ox 100% ; ha1 02:00 BP 142 / 80; Pulse 85; Resp 18 S; Pulse Ox 99% on R/A; ha1 03:00 BP 137 / 62; Pulse 84; Resp 18; Temp 98.6; Pulse Ox 99% on R/A; ha1 04:00 BP 142 / 89; Pulse 84; Resp 20 S; Pulse Ox 99% ; [facility] 12/17 22:25 Body Mass Index 32.08 (104.33 kg, 180.34 cm) [facility] ED Course: 12/17 22:20 Patient arrived in ED. ja2 22:22 [facility] Calhoun [facility]C [facility] 22:22 Ethan Albarado DO is Attending Physician. snw 22:25 Arm band placed on. 3 22:25 Patient has correct armband on for positive identification. Bed in low position. Call [facility] light in reach. Side rails up X2. Adult w/ patient. Pulse ox on. NIBP on. Door closed. Noise minimized. Lights dimmed. Warm blanket given. Pillow given. 22:25 Inserted saline lock: 20 gauge in right antecubital area, using aseptic technique. eh3 Blood collected. Inserted by Freya Moctezuma. 22:35 Ashiwni Mcallister, BLAYNE is Primary Nurse. eh3 23:35 Triage completed. eh3 12/18 01:46 Sharon Shaw MD is Hospitalizing Provider. snw 02:55 SARS RAPID Sent. ha1 02:59 Luiz Nunez MD is Hospitalizing Provider. sb4 03:17 Inserted saline lock: 22 gauge in right antecubital area, using aseptic technique. vc1 Blood collected. 03:22 Fecal Leukocyte Stain Sent. sb4 03:22 Ova And Parasites Sent. sb4 03:22 Stool Culture Sent. sb4 03:23 CBC with Diff Sent. sb4 03:23 CMP Sent. sb4 03:23 Lipase Sent. sb4 03:23 Urine Microscopic Only Sent. sb4 03:24 Chest Pa And Lat (2 Views) XRAY Sent. sb4 03:24 TSH Sent. sb4 03:24 TS Sent. sb4 03:24 Retic Count Sent. sb4 03:36 No provider procedures requiring assistance completed. Patient admitted, IV remains in ha1 place. Administered Medications: 12/17 23:15 Drug: NS 0.9% 1000 ml Route: IV; Rate: 1 bolus; Site: right antecubital; eh3 23:15 Drug: Pepcid (famotidine) 20 mg Route: IVP; Site: right antecubital; eh3 23:45 Drug: Metoprolol TARTRATE 50 mg Route: PO; 3 12/18 01:06 CANCELLED (Other Intervention Used): D5W with Sodium Bicarbonate 100 mEq/L 1000 ml IV snw at 80 calculated rate once 04:49 Drug: D5W 1000 ml, Sodium Bicarbonate 150 mEq Route: IV; Rate: 80 ml/hr; Site: right ha1 antecubital; 05:14 Follow up: Response: No adverse reaction; IV Status: Infusion continued; IV Intake: ha1 100ml Medication: 05:14 VIS not applicable for this client. ha1 Intake: 05:14 IV: 100ml; Total: 100ml. ha1 Outcome: 01:48 Decision to Hospitalize by Provider. snw 05:13 Admitted to Med/surg accompanied by tech, family with patient, via wheelchair, with ha1 chart, Other Jose, RN 05:13 Condition: stable 05:16 Patient left the ED. ha1 Signatures: Breana Calhoun, ENGINE DYNAMOMETER TESTER-C ENGINE DYNAMOMETER TESTER-Csnw Eva Santizo Vanessa RN RN vc1 Ashwini Mcallister RN RN eh3 Sophie Chan RN RN ha1 Ashely Nova, PAJeffreyC PA-C sb4
--- NOTE | 2022-12-18 02:11 | P.HP ---
Certification for Inpatient Patient admitted to: Inpatient With expected LOS: >2 Midnights Patient will require the following post-hospital care: None Practitioner: I am a practitioner with admitting privileges, knowledge of patient current condition, hospital course, and medical plan of care. Services: Services provided to patient in accordance with Admission requirements found in Title 42 Section 412.3 of the Code of Federal Regulations <AvtarAshely - Last Filed: 12/18/22 05:11> Patient History Date of Service: 12/18/22 Reason for admission: Acute Renal Failure History of Present Illness: Patient is a 37 year old male who denies any medical history who presented to the emergency department with complaints of nausea, vomiting, and diarrhea. Patient states that he has had diarrhea on and off for 4 years since having his gallbladder removed but reports he has been vomiting at least once a day for the past few weeks. His labs are remarkable for sodium 132, potassium 5.5, CO2 11, BUN 203, creatinine 33, GFR 1, alk phos 119, calcium 5.7, lipase 2195, TSH 0.345. Urine with trace ketones, 2+ blood, 3+ protein, and trace LE. EKG with prolonged QT, no peaked T waves or other acute changes. CT abdomen pelvis showed mild bilateral perinephric stranding but was otherwise unremarkable. Renal ultrasound showed "Atrophic bilateral kidneys which are increased in echogenicity suggesting medical renal disease." Nephrology has been paged, awaiting response. Patient is admitted for further management. Home medications list reviewed: Yes - Past Medical/Surgical History Diabetic: No Past Medical History: Patient denies medical history -: Cholecystectomy Psychosocial/ Personal History: Patient lives at home with his family. - Family History Family History: Reviewed- Non-Contributory - Social History Smoking Status: Never smoker Alcohol use: No CD- Drugs: No Caffeine use: Yes Place of Residence: Home <Ashely Nova - Last Filed: 12/18/22 05:11> Date of Service: 12/18/22 <Luiz Nunez - Last Filed: 12/18/22 15:27> Allergies No Known Drug Allergies Allergy (Unverified 01/16/19 09:16) Unknown Home Medications: NK [No Home Meds] 12/18/22 Review of Systems Gastrointestinal: Nausea, Vomiting, Diarrhea <Ashely Nova - Last Filed: 12/18/22 05:11> Physical Examination - Vital Signs Temperature: 98 F Blood Pressure: 166/110 Pulse: 72 Respirations: 20 Pulse Ox (%): 100 - Physical Exam General: Alert, In no apparent distress HEENT: Atraumatic, EOMI, Sclerae nonicteric Neck: Supple, 2+ carotid pulse no bruit Respiratory: Clear to auscultation bilaterally, Normal air movement Cardiovascular: Regular rate/rhythm, Normal S1 S2 Gastrointestinal: Normal bowel sounds, No tenderness Musculoskeletal: No tenderness Integumentary: No rashes Neurological: Normal speech, Normal affect - Studies Laboratory Data (last 24 hrs) 12/17/22 23:12: Sodium 132 L, Potassium 5.5 H, BUN 203 H, Creatinine 33.90 H*, Glucose 94, Total Bilirubin 0.4, AST 18, ALT 20, Alkaline Phosphatase 119 H, Lip ase 2195 H 12/17/22 23:12: WBC 8.60, Hgb 7.4 L, Hct 22.0 L, Plt Count 339 <Ashely Nova - Last Filed: 12/18/22 05:11> - Studies Laboratory Data (last 24 hrs) 12/17/22 23:12: Sodium 132 L, Potassium 5.5 H, BUN 203 H, Creatinine 33.90 H*, Glucose 94, Total Bilirubin 0.4, AST 18, ALT 20, Alkaline Phosphatase 119 H, Lipase 2195 H 12/17/22 23:12: WBC 8.60, Hgb 7.4 L, Hct 22.0 L, Plt Count 339 <Luiz Nunez - Last Filed: 12/18/22 15:27> Assessment and Plan - Problems (Diagnosis) (1) Acute renal failure Current Visit: Yes Status: Acute Qualifiers: Acute renal failure type: unspecified Qualified Code(s): N17.9 - Acute kidney failure, unspecified (2) Hypertension Current Visit: Yes Status: Acute Qualifiers: Hypertension type: secondary to other renal disorders Qualified Code(s): I15.1 - Hypertension secondary to other renal disorders; N28.89 - Other specified disorders of kidney and ureter (3) Anemia Current Visit: Yes Status: Chronic Qualifiers: Anemia type: unspecified type Qualified Code(s): D64.9 - Anemia, unspecified - Plan Patient is admitted for further management of acute renal failure. Renal failure is likely secondary to longstanding untreated hypertension. Further workup is pending. Q4H BMPs. ABG pending. Nephrology consulted. General surgery consulted for hemodialysis catheter placement. NPO. Potassium elevated at 5.5. Prolonged QT but no other EKG changes. Monitor on telemetry. Discharge Plan: Home Plan to discharge in: Greater than 2 days - Advance Directives Does patient have a Living Will: No Does patient have a Durable POA for Healthcare: No - Code Status/Comfort Care Code Status Assessed: Yes Code Status: Full Code Physician Review: Patient Assessed, Agree with Above Assessment and Plan Critical Care: No Time Spent Managing Pts Care (In Minutes): 50 <Ashely Nova - Last Filed: 12/18/22 05:11> Physician Review: Patient Assessed, Agree with Above Assessment and Plan <Luiz Nunez - Last Filed: 12/18/22 15:27>
[2022-12-18 03:05] LABS: SARS-CoV-2 Antigen Rapid Res Negative (Negative)
[2022-12-18 04:22] LABS: Phosphorus 11.5 mg/dL (2.5-4.9)
[2022-12-18] MEDS ORDERED: SODIUM BICARB 50 MEQ/50ML VIAL ONE (04:34)
[2022-12-18] MEDS ORDERED: D5W 1,000 ML IV ONE ×2 (04:36→04:42)
[2022-12-18 05:20] LABS: Hepatitis B Core IgM Nonreactive (Nonreactive); Hepatitis C Virus Ab Nonreactive (Nonreactive)
[2022-12-18 05:21] LABS: Hepatitis B surface AG Interp. Nonreactive (Nonreactive)
[2022-12-18 05:41] LABS: Arterial Blood Carboxyhemoglob 0.4 % (0-1.5); Blood Gas Oxyhemoglobin 94.5 % (94-97); Blood O2 Saturation 96.2 % (92-98.5)
[2022-12-18] MEDS: D5W 1,000 ML with NA BICARB 8.4% 150 MEQ IV SCH ×2 (06:00)
[2022-12-18] MEDS ORDERED: CALCIUM GLUC 10% INJ 4.65 MEQ in NA CHLORIDE 0.9% 100 ML IV ONE (06:08)
[2022-12-18 06:20] VITALS: BMI 32.1
[2022-12-18 06:32] LABS: Potassium 6.1 mmol/L (3.5-5.1)
[2022-12-18] MEDS ORDERED: SOD POLYSTYREN SUL 15 GM/60 ML UCUP PO ONE (06:48)
[2022-12-18] MEDS ORDERED: CALCIUM GLUCONATE 1 GM IVPB 1 GM/50 ML BAG IV ONE (07:30)
[2022-12-18] MEDS ORDERED: NA CHLORIDE 0.9% 500 ML ONE (09:20)
[2022-12-18] MEDS ORDERED: FENTANYL CITR 100 MCG/2 ML ONE ×2 (09:49→10:39)
[2022-12-18] MEDS ORDERED: MIDAZOLAM HCL 2 MG/2 ML INJ ONE (09:49)
[2022-12-18] MEDS ORDERED: propofoL 200 MG/20 ML VIAL IV ONE (09:49)
[2022-12-18] MEDS ORDERED: HEPARIN 5000 UNIT/ML 1 ML VIAL ONE (09:50)
[2022-12-18] MEDS ORDERED: LIDOCAINE 2% MPF 5 ML VIAL ONE (09:50)
[2022-12-18] MEDS ORDERED: NA CHLORIDE 0.9% 50 ML ONE (09:50)
[2022-12-18] MEDS ORDERED: BUPIVACAINE 0.5% PF 10 ML VIAL ONE (09:51)
[2022-12-18] MEDS ORDERED: CEFAZOLIN SODIUM 1 GM/VIAL ONE (09:53)
[2022-12-18] MEDS ORDERED: NS 0.9% VIAL 10 ML ONE ×2 (10:07→10:31)
[2022-12-18] MEDS ORDERED: dexAMETHasone 10 MG/ML VIAL ONE (10:19)
[2022-12-18] MEDS ORDERED: ONDANSETRON 4 MG/2 ML VIAL ONE (10:30)
[2022-12-18] MEDS ORDERED: Phenylephrine HCl 10 MG/ML 1 ML VIAL ONE (10:31)
[2022-12-18] MEDS ORDERED: MANNITOL 25% 12.5 GM/50 ML VIAL IV PRN (10:32)
--- NOTE | 2022-12-18 10:46 | P.OP ---
Preoperative diagnosis: Acute on Chronic Renal Failure - Need for Dialysis Postoperative diagnosis: Acute on Chronic Renal Failure - Need for Dialysis Primary procedure: Placement of Tunnelled RIGHT internal jugular hemodialysis catheter Secondary procedure: Ultrasound and Flouroscopic Guidance used Anesthesia: GETA + Local Estimated blood loss: <10cc Specimen: none Findings: dark non-pulsatile blood returned, cath @ SVC Complications: None Implants: 19cm Hemosplit catheter Transferred to: Recovery Room Condition: Good
[2022-12-18] MEDS ORDERED: ESMOLOL HCL 10 ML IV ONE (11:01)
--- NOTE | 2022-12-18 11:39 | RAD REPORT ---
EXAM DESCRIPTION: RAD - Chest Single View - 12/18/2022 11:34 am CLINICAL HISTORY: s/p HD cath placement Chest pain. COMPARISON: Chest Pa And Lat (2 Views) dated 12/18/2022; CHEST SINGLE VIEW dated 12/03/2014; CHEST SIN GLE VIEW dated 08/23/2014 FINDINGS: Portable technique limits examination quality. Right-sided venous catheter its tip in the SVC. No postprocedure pneumothorax.
--- NOTE | 2022-12-18 11:39 | RAD REPORT ---
EXAM DESCRIPTION: RAD - Fluoroscopy <1 Hour - 12/18/2022 11:14 am CLINICAL HISTORY: Venous catheter insertion. HD CATH PLACEMENT COMPARISON: No comparisons FINDINGS: Fluoroscopic imaging is submitted from placement of a venous catheter. Details of the pro cedure not available. Fluoroscopy time: 22.7 seconds
[2022-12-18] MEDS: MANNITOL 25% 12.5 GM/50 ML VIAL IV PRN (13:45)
--- NOTE | 2022-12-18 13:50 | RAD REPORT ---
EXAM DESCRIPTION: XR Chest, 2 Views CLINICAL HISTORY: Air under diaphragm? TECHNIQUE: Frontal and lateral views of the chest. COMPARISON: No relevant prior studies available. FINDINGS: Lungs: Unremarkable. No consolidation. Pleural space: Unremarkable. No pneumothorax. Heart: Unremarkable. No cardiomegaly. Mediastinum: Unremarkable. Bones/joints: Unremarkable. IMPRESSION: No subdiaphragmatic free air. Electronically signed by: Dante Thibodeaux MD 12/18/2022 12:39 AM INDUSTRIAL HYGIENE ENGINEER Due to temporary technical issues with the PACS/Fluency reporting system, reports are being signed by the in house radiologists without review as a courtesy to insure prompt reporting. The interpreting radiologist is fully responsible for the content of the report.
--- NOTE | 2022-12-18 13:56 | RAD REPORT ---
EXAM DESCRIPTION: US Retroperitoneal Limited, Renal CLINICAL HISTORY: The patient is 37 years old and is Male; acute renal failure TECHNIQUE: Real-time limited ultrasound of the retroperitoneum with image documentation. COMPARISON: CT of the abdomen and pelvis December 18, 2022. FINDINGS: RIGHT KIDNEY: The right kidney is increased in echogenicity with a slightly mottled appe arance. The right kidney measures 9 cm in length. No stones. No hydronephrosis. LEFT KIDNEY: The left kidney is increased in echogenicity with a slightly mottled appearance. Th e left kidney measures 8.1 cm in length. Left perinephric fluid is present. No stones. No hydro nephrosis. BLADDER: The bladder is nearly empty and is inadequately evaluated. IMPRESSION: Atrophic bilateral kidneys which are increased in echogenicity suggesting medical renal disease. Electronically signed by: Diana Ca MD 12/18/2022 3:21 AM SYSTEMS SOFTWARE MANAGER Due to temporary technical issues with the PACS/Fluency reporting system, reports are being signed by the in house radiologists without review as a courtesy to insure prompt reporting. The interpreting radiologist is fully responsible for the content of the report.
--- NOTE | 2022-12-18 14:42 | RAD REPORT ---
EXAM DESCRIPTION: CT Abdomen and Pelvis Without Intravenous Contrast CLINICAL HISTORY: The patient is 37 years old and is Male; ABD PAIN TECHNIQUE: Axial computed tomography images of the abdomen and pelvis without intravenous contrast. Sagittal and coronal reformatted images were created and reviewed. This CT exam was performed usi ng one or more of the following dose reduction techniques: automated exposure control, adjustment o f the mA and/or kV according to patient size, and/or use of iterative reconstruction technique. COMPARISON: No relevant prior studies available. FINDINGS: Lung bases: Unremarkable. No mass. No consolidation. ABDOMEN: Liver: Unremarkable. Gallbladder and bile ducts: Gallbladder is surgically absent. No ductal dilation. Pancreas: Unremarkable. No ductal dilation. Spleen: Unremarkable. No splenomegaly. Adrenals: Unremarkable. No mass. Kidneys and ureters: Mild bilateral perinephric stranding. No obstructing stones. No hydronephrosis. Stomach and bowel: Scattered colonic diverticula. No obstruction. No mucosal thickening. PELVIS: Appendix: No findings to suggest acute appendicitis. Bladder: Unremarkable. Reproductive: Unremarkable as visualized. ABDOMEN and PELVIS: Intraperitoneal space: Unremarkable. No free air. No significant fluid collection. Bones/joints: No acute fracture. No dislocation. Soft tissues: Unremarkable. Vasculature: Unremarkable. No abdominal aortic aneurysm. Lymph nodes: Unremarkable. No enlarged lymph nodes. IMPRESSION: No acute finding in the abdomen/pelvis. Electronically signed by: Marquez Hilario MD 12/18/2022 1:53 AM CARVING MACHINE OPERATOR Due to temporary technical issues with the PACS/Fluency reporting system, reports are being signed by the in house radiologists without review as a courtesy to insure prompt reporting. The interpreting radiologist is fully responsible for the content of the report.
--- NOTE | 2022-12-18 15:06 | CON ---
Date of Consultation: 12/18/2022 Brief History Of Present Illness: The patient is a 37-year-old gentleman, who prese nts with past medical history of hypertension, who presents with complaints of nausea, vomiting, and diarrhea. He has had diarrhea on and off for 4 years since having a cholecystectomy by his leonel, b ut he had been having significant worsening vomiting occurring even daily over the past few weeks. Odin ross was seen and evaluated in the ER and found to have significant kidney dysfunction and CKD, acute on chronic kidney dysfunction. As such, I am consulted for placement of a tunneled hemodialysis cathet er. Past Medical History: Hypertension. Past Surgical History: Cholecystectomy. Social History: He lives at home with his family. He is . He denies smoking, alcohol, or re creational drug use. Allergies: NO KNOWN DRUG ALLERGIES. Home Medications: Include Augmentin p.r.n., Zantac, codeine, and Zofran. Review of Systems: Ten-point review of systems other than HPI, denies. Physical Examination: Vital Signs: At the time of my examination; his BMI is 32.1. His blood pressure 170/85, heart rate 95, respiratory rate, temperature 98.5. General: He is awake, alert, oriented. Psychiatric: Appropriate, conversive. HEENT: He is normocephalic. Sclerae anicteric. Mucous membranes moist. Oropharynx clear. Neck: Supple without JVD. Chest: Expansion and excursion. Cardiovascular: Regular rate and rhythm. Pulmonary: Clear to auscultation bilaterally. Abdomen: Soft, nontender, nondistended. No rebound. No guarding. No focal peritonitis. Extremities: No clubbing, cyanosis, or edema. Skin: Warm and dry. Laboratory Data: Revealed a white blood cell count of 8.6, hemoglobin is 7.4 over hematocrit 22.0, p latelet count is 339. His sodium was 132, potassium 5.5, chloride 99, carbon dioxide 11, BUN 203, cr eatinine 33.9, glucose is 94, calcium is 5.7, total bilirubin 0.4, AST 18, ALT 20, alkaline phosphata se 119. C-reactive protein is 17. His TSH was 0.345. Lipase was 2195. He had a urinalysis, which showed trace ketones, 2+ blood, trace leukocyte esterase, 20 to 50 white blood cells, 3+ protein. He had imaging performed in the ER, which was read officially as no acute findings in the abdomen pelvi s. His ultrasound was officially read as atrophic bilateral kidneys, which are [facility] suggesting medical renal disease. Assessment And Plan: This is a 37-year-old gentleman, who comes in with acute on chronic renal dysfu nction. 1.Continue medical management. 2.I have explained risks, benefits, and alternatives of placement of tunneled hemodialysis catheter including, but not limited to bleeding; infection; damage to surrounding tissues; injury to the lungs , heart rate, blood vessels, intestines; cardiac arrest; myocardial infarction; stroke; and other unf oreseen complications. The patient agrees to proceed as indicated. Thank you for this interesting consult. JACKELYN/MICHELLE Voice ID: [id number] Report ID: [id number]
[2022-12-18 17:18] LABS: Potassium 3.5 mmol/L (3.5-5.1)
--- NOTE | 2022-12-18 19:21 | OP ---
Date of Procedure: 12/18/2022 Surgeon: Sid Golden MD, Preoperative Diagnosis: [id number] renal failure and need for dialysis. Postoperative Diagnosis: [id number] renal failure and need for dialysis. Procedure Performed: Placement of a tunneled right internal jugular hemodialysis catheter using ultr asound and fluoroscopic guidance as well as microintroducer set. Anesthesia: General endotracheal plus local with 0.25% Marcaine. Estimated Blood Loss: Less than 2 cc. Specimen: None. Findings: Dark nonpulsatile blood return. Catheter confirmed with fluoroscopic guidance at the conf luence of the SVC. Complications: None. Implants: 19 cm HemoSplit catheter. Disposition: The patient was transferred to recovery room in good condition. Procedure In Detail: After informed consent was obtained, the patient was brought to the operating r oom and prepped and draped in the usual sterile fashion. After adequate anesthesia was achieved, the patient was placed in a steep Trendelenburg position. I used ultrasound guidance to cannulate the r ight internal jugular vein using the microintroducer needle. At this point, the microwire was advanc ed into the right atrium. Fluoroscopic guidance confirmed position of microwire at this point. I th en removed the 19 cm catheter and prepared it on the back table. The microwire remained in place. A t this point, I made a small carly incision at the insertion site and introduced the microintroducer s romain, removed the microwire and advanced standard wire at this point into the right atrium. Fluoros copic guidance confirmed position of the wire in the right heart. At this point, I anesthetized the track on the infraclavicular position of the right chest wall and made a small carly incision for inse rtion. I used a tunneling device to place a 19 cm HemoSplit catheter up through the insertion site. At this point, I then performed sequential dilatation while the patient remained in steep Trendelenb urg position using Seldinger technique over the wire and introduced the introducer sheath. Wire out was called at this point, and I then advanced the catheter into the SVC at this point, using fluorosc opic guidance. I then removed the introducer sheath and the catheter was found to be in good positio n. It flushed and garry back dark red nonpulsatile blood quite easily and was in a good position at t his point. At this time, I then flushed catheter ports until clear. I then packed the catheter with heparin super flush at this point. I then secured the catheter to the chest. The patient was taken out of Trendelenburg position and sterile dressing placed over top. The patient tolerated the proce dure without evidence of any complication and transferred to PACU in good condition. All counts were correct at the end of the case. JACKELYN/MICHELLE Voice ID: [id number] Report ID: [id number]
[2022-12-18] MEDS ORDERED: METOPROLOL TAR 50 MG TAB PO ONE (20:37)
[2022-12-18] MEDS: ACETAMINOPHEN 500 MG TAB PO PRN (21:15)
[2022-12-19] MEDS ORDERED: CALCIUM GLUC 10% INJ 4.65 MEQ in NA CHLORIDE 0.9% 100 ML IV ONE (00:20)
[2022-12-19] MEDS ORDERED: CALCIUM GLUCONATE 1 GM IVPB 1 GM/50 ML BAG IV ONE (00:50)
[2022-12-19] MEDS: D5W 1,000 ML with NA BICARB 8.4% 150 MEQ IV SCH ×4 (01:01→05:00)
[2022-12-19 06:04] LABS: Absolute Lymphocytes (CBC) 0.7 K/uL (0.7-4.9); Hematocrit 21.4 % (39.6-49.0); Lymphocytes % 13.6 % (15.3-44.8); MCV 86.1 fL (80-100); MPV 8.5 fL (7.6-11.3); RBC Red Blood Cell Count 2.49 M/uL (4.33-5.43)
--- NOTE | 2022-12-19 06:09 | CON ---
Date of Consultation: 12/18/2022 Reason For Consultation: Abnormal renal function test, uremia, metabolic acidosis, hyperkalemia. History Of Present Illness: The patient is a 37-year-old man with history of cholecystitis. He had his gallbladder removed. He presented to the hospital because of complaints of nausea, vomiting, and diarrhea. He states that he has had diarrhea for at least 4 years since he was having gallbladder r emoved. He was complaining of vomiting, but he denied melena, denied hematemesis. His lab work obta mis in the emergency room showed severely elevated azotemia. BUN was 203, GFR of 1, total CO2 11, s odium 132, potassium 5.5, today potassium was 6.1, calcium 5.7, albumin 3.4. Urinalysis showed 2+ bl ood, 3+ protein, rbc's within normal limits, wbc's elevated. EKG showed prolonged QT, no peak T-wave s. CT scan of the abdomen and pelvis showed mild bilateral perinephric stranding, but it was otherwi se unremarkable. Renal ultrasound showed atrophic bilateral kidneys with increased echogenicity sugg estive of medical renal disease. The patient denies previous history of acute kidney injury or abnor mal renal function test. Review of available records from the hospital showed that back in 2019, cre atinine level was within normal limits. Past Medical History: He denies diabetes. He was not taking medication for high blood pressure. He underwent cholecystectomy previously. Family History: His sister has kidney disease and mother had a significant problem with chronic kidn ey disease and she had end-stage renal disease. Social History: He denies tobacco or alcohol. Denies drugs. Review of Systems: General: Denies fever, chills. Eyes: Denies vision changes. Ears, Nose, Mouth, and Throat: Denies sore throat, earache. Respiratory: Denies PND, orthopnea. Cardiovascular: Denies chest pain, palpitations, syncope. GI: Had nausea, vomiting, and diarrhea. : Denies dysuria, hematuria, incomplete voiding. All other systems reviewed and all are negative. Physical Examination: General: Patient is awake, alert, follows commands. Eyes: Anicteric sclerae. EOMI. Ears, Nose, Mouth and Throat: Oral mucosa moist. No pallor. Neck: Supple. No JVD. No bruits. Lungs: Diminished breath sounds bilaterally. No wheezing, no rhonchi. Heart: S1, S2. No pericardial friction rub. Abdomen: Soft, benign, nontender. Extremities: No edema. Neurological: Moving extremities. Cranial nerves are intact. Laboratory Data: Sodium 132, potassium 5.5, BUN 203, creatinine 33.9, glucose 94, total bilirubin 0. 4, AST 18, ALT 20, lipase 2195. Hemoglobin 7.4, WBC 8.6, platelet count 339,000. Lab work today wei ws sodium 132, potassium 6.1, chloride 102, CO2 11, BUN 198, creatinine 32, calcium 5.7, and glucose 85. Intact PTH 3061.3. Impression And Plan: 1.Uremia, severely elevated azotemia. Ultrasound showed advancement of chronic kidney disease. At this point, patient has end-stage renal disease and he was initiated on dialysis. He underwent tunne led dialysis catheter. clean up worker was consulted for outpatient dialysis placement. The patient w ill have daily dialysis treatment to control azotemia. 2.Hyperkalemia. Patient received IV calcium gluconate and IV sodium bicarbonate to treat hyperkalem ia and to control metabolic acidosis. Metabolic acidosis is related to advanced kidney failure. The patient will have daily dialysis to control electrolytes and treat metabolic acidosis. After dialys is today, bicarbonate improved to 16 and potassium normalized to 3.5. 3.Hypocalcemia. The patient has advanced chronic kidney disease, end-stage renal disease. 4.Hyperparathyroidism. Plan is to continue dialysis and start binders for hyperphosphatemia. The p atient will have calcitriol when phosphorus level is controlled. Currently, patient will start Renve la and Tums for hyperphosphatemia control. 5.The patient has end-stage renal disease and blood work was obtained to screen for possible causes of end-stage renal disease. Urinalysis did not show microscopic hematuria, although there is signifi cant proteinuria and workup is initiated to screen for monoclonal gammopathy of unknown significance. I ordered renal artery Doppler to rule out renal artery stenosis. The patient has significant hype rtension. Plan is to start blood pressure medication. Urinalysis showed positive blood, although th ere was no microscopic hematuria present and plan is to check CK level to rule out rhabdomyolysis. EB/MODL Voice ID: [id number] Report ID: [id number]
[2022-12-19 06:35] LABS: Ferritin 1456.5 ng/mL (26-388); Magnesium 1.8 mg/dL (1.6-2.4); Thyroid Stimulating Hormone 0.134 uIU/mL (0.358-3.740); Uric Acid 7.1 mg/dL (3.5-7.2)
[2022-12-19 06:41] LABS: Phosphorus 10.5 mg/dL (2.5-4.9)
[2022-12-19] MEDS: CALCIUM CARBONATE CHEW 500MG TAB PO SCH ×3 (07:30→17:13)
--- NOTE | 2022-12-19 07:39 | RAD REPORT ---
EXAM DESCRIPTION: RAD - Chest Pa And Lat (2 Views) - 12/19/2022 5:59 am CLINICAL HISTORY: esrd , dyspnea COMPARISON: Chest Single View dated 12/18/2022; Chest Pa And Lat (2 Views) dated 12/18/2022; CHEST SIN GLE VIEW dated 12/03/2014; CHEST SINGLE VIEW dated 08/23/2014 FINDINGS: Lines: Right IJ approach dialysis catheter with tip overlying the SVC. Lungs: No evidence of edema or pneumonia. Pleural: No significant pleural effusions or pneumothorax. Cardiac: The heart size is within normal limits. Mediastinum: Within normal limits. Bones: No acute fractures. Other: None IMPRESSION: No acute cardiopulmonary disease.
[2022-12-19] MEDS: THIAMINE HCL 100 MG TABLET PO SCH (09:15)
[2022-12-19] MEDS: SEVELAMER CARBONATE 800 MG TABLET PO SCH ×3 (09:15→17:13)
[2022-12-19] MEDS: carvediloL 6.25 MG TAB PO SCH ×2 (09:15→21:42)
[2022-12-19] MEDS: SODIUM BICARB 325 MG TAB PO SCH ×2 (09:15→21:42)
[2022-12-19] MEDS: FOLIC ACID 1 MG TABLET PO SCH (09:15)
[2022-12-19] MEDS: VITAMIN D 5,000 UNIT CAP PO SCH (09:16)
[2022-12-19] MEDS: AMLODIPINE 2.5 MG TAB PO SCH (09:16)
--- NOTE | 2022-12-19 10:27 | RAD REPORT ---
EXAM DESCRIPTION: US - Abdomen Pelvis Scan US - 12/19/2022 10:02 am CLINICAL HISTORY: High blood pressure renal artery doppler COMPARISON: Abdomen Pelvis Wo Contrast dated 12/18/2022; Fluoroscopy <1 Hour dated 12/18/2022; Chest Pa And Lat (2 Views) dated 12/19/2022 FINDINGS: The right kidney measures 9.3 cm. The left kidney measures 9.3 cm. The renal cortices are echogenic bilaterally. Aortic velocity: 115 cm/second Right proximal renal artery: 86 cm/second Right mid renal artery: 73 cm/second Right distal renal artery: 101 cm/second Right renal arcuate artery resistive index: 0.8 Right renal artery / aorta ratio: 0.9 Left proximal renal artery: 50 cm/second Left mid renal artery: 71 cm/second Left distal renal artery: 106 cm/second Left renal arcuate artery resistive index: 0.9 Left renal artery/aorta ratio: 0.9 Normal waveforms demonstrated within the bilateral renal arteries. IMPRESSION: No evidence of hemodynamically significant stenosis within the bilateral renal arteries. Echogenic kidneys bilaterally consistent with medical renal disease.
[2022-12-19] MEDS: MANNITOL 25% 12.5 GM/50 ML VIAL IV PRN (12:45)
[2022-12-19] MEDS: EPOETIN ALFA 10,000 UNIT/ML VIAL IV SCH (13:00)
--- NOTE | 2022-12-19 15:05 | PN ---
Date of Progress Note: 12/19/2022 Subjective: The patient doing well. The patient was admitted with acute kidney injury, unknown etiology. The patient had complete kidney function back in 2019. Denied any other lab test in between. The patient still has good urine output. The patient came with diarrhea for the last couple of weeks. Physical Examination: Vital Signs: Blood pressure 159/93, pulse of 80, afebrile. The patient had still good urine output. Chest: Clear to auscultation. Heart: S1, S2. Regular. Abdomen: Soft, nontender. Extremity: No edema. Neurologic: Alert. No focality. Laboratory Data: Sodium 135, potassium 4, bicarb 15, chloride 98, BUN 139, creatinine 23, calcium 6.5, phosphorus 10.5. Iron saturation of 86, ferritin 1456, troponin 135. Serum protein electrophoresis is still pending. Vitamin D of 11, PTH 3000. PC ratio still pending. Serology still pending. Renal ultrasound; 9.3/9.3, normal resistive index. Current Medications: The patient on include; 1. Epogen. 2. Calcium carbonate. 3. Amlodipine. 4. Hydralazine. 5. Carvedilol. 6. Sodium bicarb. 7. Renvela. Assessment And Plan: 1. Acute kidney injury, unknown etiology, possible hypertension nephrosclerosis, progression to end-stage. I am going to continue daily dialysis for the patient. The patient is going to be dialyzed on high calcium bath and we will follow up the patient. We will follow up the workup. 2. Hypertension, better controlled. Continue current treatment. 3. Acidosis secondary to renal failure. Will be corrected with dialysis. 4. Anemia of chronic kidney disease. Continue TAMMIE. 5. Secondary hyperparathyroidism. I will start the patient on calcitriol and we will follow up. I am going to continue Renvela. Continue binder and vitamin D. 6. Vitamin D deficiency. We will start the patient on ergocalciferol. time spend exam the patient face to face , reviewing data lab and radiology placing order , discussing with noman member nursing and hospitalist >35 min TC/MICHELLE Voice ID: [id number] Report ID: [id number] [facility] CENTERDriss
[2022-12-19] MEDS: CALCITROL 0.25 MCG CAP PO SCH (15:20)
[2022-12-19 16:06] LABS: Hepatitis B Surface Ab - Quant < 3.10 mIU/mL (<8.0)
--- NOTE | 2022-12-19 17:17 | EKG ---
Test Date: 2022-12-18 Test Time: 03:14:48 Arabic Professor: GABRIEL MEASUREMENT RESULTS: Intervals: Rate: 73 AK: 142 QRSD: 78 QT: 464 QTc: 511 [place]: P: 34 AK: 142 QRS: 25 T: 25 INTERPRETIVE STATEMENTS: Normal sinus rhythm Prolonged QT Abnormal ECG Compared to ECG 08/23/2014 22:35:35 Prolonged QT interval now present Sinus bradycardia no longer present Myocardial infarct finding no longer present Electronically Signed On 12-19-22 17:10:55 BRIM CURLER by Scott Echavarria
--- NOTE | 2022-12-19 19:03 | P.PN ---
Subjective Date of Service: 12/19/22 Chief Complaint: Acute Renal Failure No acute events overnight. He underwent dialysis yesterday, without any issues. He denies any chest pain, palpitations, or shortness of breath. Review of Systems 10-point ROS is otherwise unremarkable General: Malaise Physical Examination - Vital Signs Temperature: 98.4 F Blood Pressure: 156/91 Pulse: 95 Respirations: 16 Pulse Ox (%): 97 - Physical Exam General: Alert, In no apparent distress, Oriented x3 HEENT: Atraumatic, EOMI, Sclerae nonicteric Neck: JVD not distended Respiratory: Clear to auscultation bilaterally, Normal air movement Cardiovascular: Normal pulses, Regular rate/rhythm, Normal S1 S2, No gallops, No rubs, No murmurs, Edema (1+ BLE) Gastrointestinal: Normal bowel sounds, Soft and benign, Non-distended, No tenderness, No rebound, No guarding Musculoskeletal: No clubbing Integumentary: No rashes Neurological: Normal speech, Normal affect - Studies Microbiology Data (last 24 hrs): 12/17/22 22:53 Clean Catch Urine Casar Count - Final No growth. 12/17/22 22:53 Clean Catch Urine - Final No growth. Assessment And Plan - Plan # Suspect KDIGO Stage III Acute Kidney Injury vs Chronic Kidney Disease Stage V - now progressed End-Stage Renal Disease # Hyperkalemia - resolved # Hypertension - General Surgery consulted and he underwent dialysis catheter placement by Dr. Golden on 12/18/2022 - Nephrology consulted and he was started on hemodialysis - Creatinine = 33.9 -> 32.0 -> 20.8 -> 23.3 - BUN = 203 -> 198 -> 138 -> 139 - Bicarbonate = 11 -> 11 -> 16 -> 15 - Urinalysis = trace ketones, trace leukocyte esterase, 20-50 WBCs, 3+ protein - Monitor creatinine and urine output - Renally dose medications # Suspect Type II Non-ST Segment Elevation Myocardial Infarction (Demand Ischemia) due to above - Evaluation thus far: - EKG: reportedly without STEMI criteria, trend - Serial troponin: 135.0 -> 131.7 -> 131 - Ordered transthoracic echocardiogram - Management plan: - Consult Cardiology - recommendations appreciated - Ordered aspirin 324 mg PO x 1 - Start daily baby aspirin - If cardiac ischemia confirmed, plan to start beta-london, NISHA- inhibitor/ARB, statin as tolerated Luiz Nunez M.D.
[2022-12-19] MEDS ORDERED: ASPIRIN 81 MG CHEWABLE TABLET PO ONE (19:07)
[2022-12-20 07:03] LABS: Phosphorus 8.2 mg/dL (2.5-4.9); Potassium 3.5 mmol/L (3.5-5.1)
[2022-12-20] MEDS: SODIUM BICARB 325 MG TAB PO SCH ×2 (08:51→21:45)
[2022-12-20] MEDS: VITAMIN D 5,000 UNIT CAP PO SCH (08:51)
[2022-12-20] MEDS: carvediloL 6.25 MG TAB PO SCH ×2 (08:51→21:45)
[2022-12-20] MEDS: FOLIC ACID 1 MG TABLET PO SCH (08:51)
[2022-12-20] MEDS: ASPIRIN 81 MG CHEWABLE TABLET PO SCH (08:51)
[2022-12-20] MEDS: CALCIUM CARBONATE CHEW 500MG TAB PO SCH ×3 (08:51→17:16)
[2022-12-20] MEDS: SEVELAMER CARBONATE 800 MG TABLET PO SCH ×3 (08:51→17:16)
[2022-12-20] MEDS: THIAMINE HCL 100 MG TABLET PO SCH (08:52)
[2022-12-20] MEDS: AMLODIPINE 2.5 MG TAB PO SCH (08:52)
[2022-12-20] MEDS: MANNITOL 25% 12.5 GM/50 ML VIAL IV PRN (11:00)
[2022-12-20] MEDS: EPOETIN ALFA 10,000 UNIT/ML VIAL IV SCH (11:45)
--- NOTE | 2022-12-20 13:16 | PN ---
Date of Progress Note: 12/20/2022 Subjective: The patient was admitted with acute kidney injury, unknown etiology. The patient's kidney function was within normal limit back in 2019. No clear insult. Physical Examination: Vital Signs: Blood pressure 167/90, pulse of 85. Chest: Clear to auscultation. Heart: S1, S2. Regular. Abdomen: Soft, nontender. Extremities: No edema. Laboratory Data: Hemoglobin 7.4, platelet 210. Sodium 135, potassium 3.5, bicarb 24, BUN 100, creatinine 18.3, calcium 7.5, phosphorus 8.2. Current Medications: The patient on include; 1. Aspirin 81 mg. 2. Heparin. 3. Epogen. 4. Calcium carbonate. 5. Amlodipine. 6. Carvedilol. 7. Tylenol. 8. Sodium bicarb 650 b.i.d. 9. Renvela. 10. Folic acid. 11. Cholecalciferol. 12. Thiamin. Assessment And Plan: 1. Acute kidney injury, unknown etiology. Obstructive uropathy has been ruled out. Dialysis dependent. We will continue dialysis. We will do another session of dialysis tomorrow. Given young age and no clear insult, normal kidney function couple of years back, I am going to go ahead and arrange for kidney biopsy. We will follow up serology. 2. Hypertension, better controlled. We will follow up. 3. Anemia of chronic kidney disease/iron deficiency anemia. Continue IV iron, TAMMIE. 4. Secondary hyperparathyroidism, started on calcitriol and Renvela. We will follow up. time spend exam the patient face to face , reviewing data lab and radiology placing order , discussing with noman member nursing and hospitalist >35 min JALEESA Voice ID: [id number] Report ID: [id number] [facility]
--- NOTE | 2022-12-20 13:29 | ECHO ---
HEIGHT: 5 ft 11 in WEIGHT: 230 lb 0 oz DATE OF STUDY: 12/20/[address]: Luiz Nunez MD 2-DIMENSIONAL: YS M.MODE: YES DOPPLER: YES COLOR FLOW: YES TDS: NO PORTABLE: YES DEFINITY: NO BUBBLE STUDY: NO DIAGNOSIS: ELEVATED TROPONIN CARDIAC HISTORY: CATHERIZATION: SURGERY: PROSTHETIC VALVE: PACEMAKER: MEASUREMENTS (cm) DIASTOLIC (NORMALS) SYSTOLIC (NORMALS) IVSd 1.1 (0.6-1.2) LA Diam 4.1 (1.9-4.0) LVEF 72% LVIDd 5.2 (3.5-5.7) LVIDs 3.1 (2.0-3.5) %FS 42% LVPWd 1.1 (0.6-1.2) Ao Diam 3.1 (2.0-3.7) 2 DIMENSIONAL ASSESSMENT: RIGHT ATRIUM: NORMAL LEFT ATRIUM: ENLARGED RIGHT VENTRICLE: NORMAL LEFT VENTRICLE: NORMAL TRICUSPID VALVE: NORMAL MITRAL VALVE: MILD MR PULMONIC VALVE: MILD PI AORTIC VALVE: NORMAL PERICARDIAL EFFUSION: NONE AORTIC ROOT: NORMAL LEFT VENTRICULAR WALL MOTION: NORMAL DOPPLER/COLOR FLOW: SEE BELOW. COMMENTS: 1. NORMAL LEFT VENTRICULAR EJECTION FRACTION 60-65%. 2. NORMAL WALL MOTION. 3. MILD MITRAL REGURGITATION. 4. MILD PULMONARY REGURGITATION. TECHNOLOGIST: Kota TOMPKINS
--- NOTE | 2022-12-20 17:59 | P.PN ---
Subjective Date of Service: 12/20/22 Chief Complaint: Acute Renal Failure No acute events overnight. He underwent dialysis yesterday, without any issues. He denies any chest pain, palpitations, or shortness of breath. Per Dr. Mitchell, plan is for renal biopsy once BUN levels < 100. Review of Systems 10-point ROS is otherwise unremarkable General: Malaise Physical Examination - Vital Signs Temperature: 98.5 F Blood Pressure: 157/83 Pulse: 83 Respirations: 16 Pulse Ox (%): 98 Assessment And Plan - Plan - Physical Exam General: Alert, In no apparent distress, Oriented x3 HEENT: Atraumatic, Sclerae nonicteric Neck: JVD not distended Respiratory: Clear to auscultation bilaterally, Normal air movement Cardiovascular: Normal pulses, Regular rate/rhythm, No murmurs, Edema (1+ BLE) Gastrointestinal: Soft, Non-distended, No tenderness, No rebound, No guarding Musculoskeletal: No clubbing Integumentary: No rashes Neurological: Normal speech, Normal affect # Suspect KDIGO Stage III Acute Kidney Injury vs Chronic Kidney Disease Stage V - now progressed End-Stage Renal Disease # Hyperkalemia - resolved # Hypertension - General Surgery consulted and he underwent dialysis catheter placement by Dr. Golden on 12/18/2022 - Nephrology consulted and he was started on hemodialysis - Creatinine = 33.9 -> 32.0 -> 20.8 -> 23.3 -> 18.3 - BUN = 203 -> 198 -> 138 -> 139 -> 100 - Per Dr. Mitchell, plan for renal biopsy once BUN < 100 - Bicarbonate = 11 -> 11 -> 16 -> 15 -> 24 - Urinalysis = trace ketones, trace leukocyte esterase, 20-50 WBCs, 3+ protein - Monitor creatinine and urine output - Renally dose medications # Suspect Type II Non-ST Segment Elevation Myocardial Infarction (Demand Ischemia) due to above - Evaluation thus far: - EKG: reportedly without STEMI criteria, trend - Serial troponin: 135.0 -> 131.7 -> 131 - Transthoracic echocardiogram = "1. normal left ventricular ejection fraction 60-65%. 2. normal wall motion. 3. mild mitral regurgitation. 4. mild pulmonary regurgitation." - Management plan: - Consult Cardiology - recommendations appreciated - Ordered aspirin 324 mg PO x 1 - Start daily baby aspirin - If cardiac ischemia confirmed, plan to start beta-london, NISHA- inhibitor/ARB, statin as tolerated Luiz Nunez M.D.
[2022-12-21] MEDS: HYDRALAZINE HCL 20 MG/ML VIAL IV PRN ×3 (05:03→23:59)
[2022-12-21 06:23] LABS: Albumin 2.9 g/dL (3.4-5.0); Phosphorus 5.2 mg/dL (2.5-4.9); Potassium 3.4 mmol/L (3.5-5.1)
[2022-12-21] MEDS: SODIUM BICARB 325 MG TAB PO SCH (08:52)
[2022-12-21] MEDS: AMLODIPINE 2.5 MG TAB PO SCH (08:52)
[2022-12-21] MEDS: VITAMIN D 5,000 UNIT CAP PO SCH (08:52)
[2022-12-21] MEDS: FOLIC ACID 1 MG TABLET PO SCH (08:52)
[2022-12-21] MEDS: SEVELAMER CARBONATE 800 MG TABLET PO SCH ×3 (08:52→17:25)
[2022-12-21] MEDS: ASPIRIN 81 MG CHEWABLE TABLET PO SCH (08:52)
[2022-12-21] MEDS: THIAMINE HCL 100 MG TABLET PO SCH (08:52)
[2022-12-21] MEDS: CALCIUM CARBONATE CHEW 500MG TAB PO SCH ×3 (08:52→17:25)
[2022-12-21] MEDS: carvediloL 6.25 MG TAB PO SCH ×2 (08:52→20:28)
[2022-12-21] MEDS: CALCITROL 0.25 MCG CAP PO SCH (12:16)
--- NOTE | 2022-12-21 13:04 | PN ---
Date of Progress Note: 12/21/2022 Subjective: The patient doing well. The patient diagnosed with advanced kidney disease, started on dialysis, received dialysis yesterday. Physical Examination: Vital Signs: Blood pressure 171/77, pulse of 91, afebrile. Chest: Clear to auscultation. Heart: S1, S2. Regular. Abdomen: Soft, nontender. Extremities: No edema. Neurologic: Alert. No focality. Laboratory Data: Hemoglobin 7.4. Sodium 137, potassium 3.4, bicarb 25, BUN 69, creatinine 14.6, calcium 7.7, phosphorus 5.2, albumin 2.9. Corrected calcium 8.5. Current Medications: The patient on include; 1. Aspirin. 2. Epogen. 3. Calcium. 4. Amlodipine 2.5 mg daily. 5. Carvedilol 6.25 b.i.d. 6. Hydralazine p.r.n. 7. Sodium bicarb. 8. Renvela. 9. Folic acid. 10. Calcitriol. 11. Cholecalciferol. Assessment And Plan: 1. Acute kidney injury. No history of chronic kidney disease. I had long discussion with the patient for the need for kidney biopsy to evaluate the reason of his worsening kidney function. The patient verbalized understanding. The patient received aspirin. We will discontinue aspirin and we will arrange for the biopsy. Still the patient going to need arrangement for outpatient, also interested on peritoneal dialysis. We will arrange for it as outpatient. 2. Hypertension, not controlled. Increase amlodipine. Continue carvedilol. We will follow up post dialysis. 3. Anemia of chronic kidney disease. Continue TAMMIE. 4. Secondary hyperparathyroidism. Continue calcitriol and vitamin D. Phosphorus started trending down. I am going to go ahead and decrease Renvela to 1800. 5. Acidosis. The patient was started on dialysis. I do not see the need for sodium bicarb, we will discontinue it. We will start the patient on Tums. time spend exam the patient face to face , reviewing data lab and radiology placing order , discussing with onman member nursing and hospitalist >35 min JALEESA Voice ID: [id number] Report ID: [id number] [facility]
[2022-12-21] MEDS: EPOETIN ALFA 10,000 UNIT/ML VIAL IV SCH (13:45)
[2022-12-21] MEDS ORDERED: ONDANSETRON 4 MG/2 ML VIAL IV PRN (16:58)
[2022-12-21] MEDS ORDERED: HYDROMORPHONE HCL 0.5 MG/0.5 ML INJ IV ONE (17:07)
--- NOTE | 2022-12-21 18:26 | P.PN ---
Subjective Date of Service: 12/21/22 Chief Complaint: Acute Renal Failure No acute events overnight. He denies any concerns this morning. Plan for renal biopsy per Neph. Awaiting dialysis chair as an outpatient. Review of Systems 10-point ROS is otherwise unremarkable General: Malaise Physical Examination - Vital Signs Temperature: 97 F Blood Pressure: 162/93 Pulse: 103 Respirations: 19 Pulse Ox (%): 100 Assessment And Plan - Plan - Physical Exam General: Alert, In no apparent distress, Oriented x3 HEENT: Atraumatic, Sclerae nonicteric Neck: JVD not distended Respiratory: Clear to auscultation bilaterally, Normal air movement Cardiovascular: Normal pulses, Regular rate/rhythm, No murmurs, Edema (1+ BLE) Gastrointestinal: Soft, Non-distended, No tenderness, No rebound, No guarding Musculoskeletal: No clubbing Integumentary: No rashes Neurological: Normal speech, Normal affect # Suspect KDIGO Stage III Acute Kidney Injury vs Chronic Kidney Disease Stage V - now progressed End-Stage Renal Disease # Hyperkalemia - resolved # Hypertension - General Surgery consulted and he underwent dialysis catheter placement by Dr. Golden on 12/18/2022 - Nephrology consulted and he was started on hemodialysis - Creatinine = 33.9 -> 32.0 -> 20.8 -> 23.3 -> 18.3 -> 14.6 - BUN = 203 -> 198 -> 138 -> 139 -> 100 -> 69 - Per Dr. Mitchell, plan for renal biopsy once BUN < 100 - Will place NPO after midnight - Bicarbonate = 11 -> 11 -> 16 -> 15 -> 24 -> 25 - Urinalysis = trace ketones, trace leukocyte esterase, 20-50 WBCs, 3+ protein - Monitor creatinine and urine output - Renally dose medications # Suspect Type II Non-ST Segment Elevation Myocardial Infarction (Demand Ischemia) due to above - Evaluation thus far: - EKG: reportedly without STEMI criteria, trend - Serial troponin: 135.0 -> 131.7 -> 131 - Transthoracic echocardiogram = "1. normal left ventricular ejection fraction 60-65%. 2. normal wall motion. 3. mild mitral regurgitation. 4. mild pulmonary regurgitation." - Management plan: - Consult Cardiology - recommendations appreciated - Ordered aspirin 324 mg PO x 1 - Start daily baby aspirin - If cardiac ischemia confirmed, plan to start beta-london, NISHA- inhibitor/ARB, statin as tolerated Luiz Nunez M.D.
--- NOTE | 2022-12-21 23:22 | CON ---
Date of Consultation: 12/21/2022 Reason For Consultation: Elevated troponin. History Of Present Illness: This is a 37-year-old male, who was admitted to the hospital with advanc ed kidney failure, has no past medical history, presented with nausea, vomiting, and diarrhea. His c reatinine was extremely elevated at 33 and BUN is 203. The patient is being followed by Nephrology. Troponin was done, was slightly elevated. Patient denies having any chest pain. Past Medical History: None. Medications: None. Allergies: NO KNOWN DRUG ALLERGIES. Family History: No premature coronary artery disease or cancer. Social History: He does not smoke or drink. Does not use any drugs. Review of Systems: All systems reviewed, they were negative except as mentioned in HPI. Physical Examination: Vital Signs: Reviewed. Head and Neck: Pupils are equal, reactive to light. Intact eye movements. No JVD. No cervical lym phadenopathy. Neck is supple. Thyroid is not enlarged. Lungs: Clear to auscultation bilaterally. No rhonchi, wheezing, or crackles. No accessory muscle u se. Heart: Regular rate and rhythm. No extra sounds. Abdomen: Soft, nontender. Bowel sounds positive. No organomegaly. No masses or hernia. No rigidi ty or rebound. Extremities: There is no clubbing or cyanosis. Intact pulses. Skin: No rashes. Neurologic: Alert, awake, oriented x3. No acute focal deficits appreciated. Investigations: Troponin was in the 130 range. BUN 69, creatinine 14. Assessment/recommendation: 1.Elevated troponin. No symptoms. No chest pain. His ejection fraction by echo is normal. This i s demand ischemia. No further workup is needed. Once his kidney function recover, we will plan for outpatient stress test. 2.Advanced acute kidney failure with creatinine of 32 at presentation, improved with dialysis and be ing monitored by Nephrology. SR/MODL Voice ID: [id number] Report ID: [id number]
[2022-12-22 04:14] LABS: Absolute Lymphocytes (CBC) 1.5 K/uL (0.7-4.9); Lymphocytes % 16.4 % (15.3-44.8); MCV 87.4 fL (80-100); MPV 8.9 fL (7.6-11.3); RBC Red Blood Cell Count 2.11 M/uL (4.33-5.43)
[2022-12-22 04:20] LABS: Hematocrit 18.5 % (39.6-49.0)
[2022-12-22 04:48] LABS: Phosphorus 4.2 mg/dL (2.5-4.9)
[2022-12-22] MEDS ORDERED: NA CHLORIDE 0.9% 250 ML IV SCH (06:00)
[2022-12-22] MEDS: SEVELAMER CARBONATE 800 MG TABLET PO SCH ×3 (09:19→17:49)
[2022-12-22] MEDS: HYDRALAZINE HCL 20 MG/ML VIAL IV PRN (09:19)
[2022-12-22] MEDS: CALCITROL 0.25 MCG CAP PO SCH (09:19)
[2022-12-22] MEDS: FOLIC ACID 1 MG TABLET PO SCH (09:19)
[2022-12-22] MEDS: CALCIUM CARBONATE CHEW 500MG TAB PO SCH ×3 (09:19→17:49)
[2022-12-22] MEDS: THIAMINE HCL 100 MG TABLET PO SCH (09:20)
[2022-12-22] MEDS: carvediloL 6.25 MG TAB PO SCH ×2 (09:20→21:06)
[2022-12-22] MEDS: AMLODIPINE 10 MG TAB PO SCH (09:20)
[2022-12-22] MEDS: VITAMIN D 5,000 UNIT CAP PO SCH (09:20)
[2022-12-22 11:09] LABS: HIV AG/AB 4TH GEN Nonreactive (Nonreactive)
--- NOTE | 2022-12-22 13:17 | P.PN ---
Subjective Date of Service: 12/22/22 Chief Complaint: Acute Renal Failure Subjective: No new changes Physical Examination - Vital Signs Temperature: 97.8 F Blood Pressure: 134/74 Pulse: 95 Respirations: 16 Pulse Ox (%): 98 - Physical Exam General: Alert, In no apparent distress HEENT: Atraumatic, Normocephalic Neck: Supple, JVD not distended Respiratory: Other (Symmetric chest expansion) Cardiovascular: No rubs, No murmurs Gastrointestinal: Soft and benign, No guarding Musculoskeletal: No clubbing Integumentary: No warmth Neurological: Normal speech, Normal tone Urinary: Other (bladder distention) External genitalia: Deferred Rectal: Deferred Assessment And Plan - Plan 1. Acute kidney injury. No history of chronic kidney disease. Clinical date indicates he has advanced CKD at baseline. HD initiated on 12/19. Received HD 12/19-12/21. HD TTS starting tomorrow. Kidney biopsy for Wed next week. 2. Hypertension. BP meds adjusted. 3. Anemia of chronic kidney disease. Continue TAMMIE. 4. Secondary hyperparathyroidism. Continue calcitriol and vitamin D. 5. HyperPO4. Renvela po tidwm. 6. Acidosis. Correction via HD. Physician Review: Patient Assessed, Agree with Above Assessment and Plan
--- NOTE | 2022-12-22 14:00 | P.PN ---
Subjective Date of Service: 12/22/22 Chief Complaint: Acute Renal Failure His hemoglobin this morning was 6.2. He denies any obvious sources of bleeding. He specifically denies any hemoptysis, hematemesis, hematochezia, melena, or hematuria. He denies any further concerns. Review of Systems 10-point ROS is otherwise unremarkable General: Malaise (improved) Physical Examination - Vital Signs Temperature: 97.8 F Blood Pressure: 134/74 Pulse: 95 Respirations: 16 Pulse Ox (%): 98 Assessment And Plan - Plan - Physical Exam General: Alert, In no apparent distress, Oriented x3 HEENT: Atraumatic, Sclerae nonicteric Neck: JVD not distended Respiratory: Clear to auscultation bilaterally Cardiovascular: Regular rate/rhythm, No murmurs, Edema (1+ BLE) Gastrointestinal: Soft, Non-distended, No tenderness Musculoskeletal: No clubbing Integumentary: No rashes Neurological: Normal speech, Normal affect # Suspect KDIGO Stage III Acute Kidney Injury vs Chronic Kidney Disease Stage V - now progressed End-Stage Renal Disease # Hyperkalemia - resolved # Hypertension - General Surgery consulted and he underwent dialysis catheter placement by Dr. Golden on 12/18/2022 - Nephrology consulted and he was started on hemodialysis - Appreciate Neph recs coordinating renal biopsy - Urinalysis = trace ketones, trace leukocyte esterase, 20-50 WBCs, 3+ protein - Monitor creatinine and urine output - Renally dose medications # Suspect Acute on Chronic Anemia of Chronic Kidney Disease - Transfuse 1 unit pRBCs - Serial H&H - Transfuse for Hgb < 7.0 - 2 large bore IVs - Monitor for signs of bleeding # Suspect Type II Non-ST Segment Elevation Myocardial Infarction (Demand Ischemia) due to above - Evaluation thus far: - EKG: reportedly without STEMI criteria, trend - Serial troponin: 135.0 -> 131.7 -> 131 - Transthoracic echocardiogram = "1. normal left ventricular ejection fraction 60-65%. 2. normal wall motion. 3. mild mitral regurgitation. 4. mild pu lmonary regurgitation." - Management plan: - Consult Cardiology - recommendations appreciated - Continue baby aspirin - If cardiac ischemia confirmed, plan to start beta-london, NISHA-inhibitor/ ARB, statin as tolerated Luiz Nunez M.D.
[2022-12-22 17:35] LABS: Absolute Lymphocytes (CBC) 1.6 K/uL (0.7-4.9); Hematocrit 21.4 % (39.6-49.0); Lymphocytes % 15.9 % (15.3-44.8); MCV 86.5 fL (80-100); MPV 8.9 fL (7.6-11.3); RBC Red Blood Cell Count 2.47 M/uL (4.33-5.43)
[2022-12-22 18:04] LABS: Blood Morphology Comment NOTED (NOT SEEN); Burr Cells 2+; Platelet Estimate ADEQ; Polychromasia 1+; White Blood Cell Scan OK (OK)
[2022-12-22] MEDS: ACETAMINOPHEN 500 MG TAB PO PRN (18:06)
[2022-12-22] MEDS ORDERED: POLYETHYL GLY 3350 17 GM/DOSE PO ONE (18:34)
[2022-12-22 19:15] LABS: Albumin, (SPE) 3.2 g/dL (3.8-4.8); Alpha-1-Globulins 0.4 g/dL (0.2-0.3); Alpha-2-Globulins 0.6 g/dL (0.5-0.9); Gamma Globulins 1.3 g/dL (0.8-1.7); INTERPRETATION REPORT
[2022-12-22 19:23] LABS: Albumin, (SPE) 3.4 g/dL (3.8-4.8); Alpha-1-Globulins 0.4 g/dL (0.2-0.3); Alpha-2-Globulins 0.6 g/dL (0.5-0.9); Gamma Globulins 1.3 g/dL (0.8-1.7); INTERPRETATION REPORT
[2022-12-22 21:34] LABS: Albumin, (SPE) 3.3 g/dL (3.8-4.8); Alpha-1-Globulins 0.4 g/dL (0.2-0.3); Alpha-2-Globulins 0.6 g/dL (0.5-0.9); Gamma Globulins 1.3 g/dL (0.8-1.7); INTERPRETATION REPORT
[2022-12-22 22:44] LABS: Hematocrit 21.6 % (39.6-49.0)
[2022-12-23 04:48] LABS: Absolute Lymphocytes (CBC) 1.5 K/uL (0.7-4.9); Hematocrit 21.1 % (39.6-49.0); MCV 86.3 fL (80-100); MPV 8.7 fL (7.6-11.3); RBC Red Blood Cell Count 2.44 M/uL (4.33-5.43)
[2022-12-23 05:08] LABS: Magnesium 2.2 mg/dL (1.6-2.4); Phosphorus 4.1 mg/dL (2.5-4.9)
[2022-12-23] MEDS: AMLODIPINE 10 MG TAB PO SCH (08:50)
[2022-12-23] MEDS: FOLIC ACID 1 MG TABLET PO SCH (08:50)
[2022-12-23] MEDS: CALCIUM CARBONATE CHEW 500MG TAB PO SCH ×3 (08:50→16:24)
[2022-12-23] MEDS: SEVELAMER CARBONATE 800 MG TABLET PO SCH ×3 (08:50→17:00)
[2022-12-23] MEDS: THIAMINE HCL 100 MG TABLET PO SCH (08:50)
[2022-12-23] MEDS: carvediloL 6.25 MG TAB PO SCH ×2 (08:50→20:24)
[2022-12-23] MEDS: VITAMIN D 5,000 UNIT CAP PO SCH (08:51)
[2022-12-23] MEDS ORDERED: POLYETHYL GLY 3350 17 GM/DOSE PO PRN (13:04)
[2022-12-23] MEDS ORDERED: HYDROMORPHONE HCL 0.5 MG/0.5 ML INJ IV ONE (13:35)
--- NOTE | 2022-12-23 13:48 | P.PN ---
Subjective Date of Service: 12/23/22 Chief Complaint: Acute Renal Failure No acute events overnight. He reports no concerns at this time. His hemoglobin has remained stable. He denies any obvious sources of bleeding. Renal biopsy tentatively scheduled for 12/27/2022. Review of Systems 10-point ROS is otherwise unremarkable Physical Examination - Vital Signs Temperature: 97.5 F Blood Pressure: 124/77 Pulse: 88 Respirations: 18 Pulse Ox (%): 100 Assessment And Plan - Plan - Physical Exam General: Alert, In no apparent distress, Oriented x3 HEENT: Atraumatic, Sclerae nonicteric Neck: JVD not distended Respiratory: Clear to auscultation bilaterally Cardiovascular: Regular rate/rhythm, No murmurs, Edema (1+ BLE) Gastrointestinal: Soft, Non-distended, No tenderness Musculoskeletal: No clubbing Integumentary: No rashes Neurological: Normal speech, Normal affect # Suspect KDIGO Stage III Acute Kidney Injury vs Chronic Kidney Disease Stage V - now progressed End-Stage Renal Disease # Hyperkalemia - resolved # Hypertension - General Surgery consulted and he underwent dialysis catheter placement by Dr. Golden on 12/18/2022 - Nephrology consulted and he was started on hemodialysis - Appreciate Neph recs coordinating renal biopsy - renal biopsy tentatively scheduled for 12/27/2022 - Urinalysis = trace ketones, trace leukocyte esterase, 20-50 WBCs, 3+ protein - Monitor creatinine and urine output - Renally dose medications # Suspect Acute on Chronic Anemia of Chronic Kidney Disease - stable - S/P 1 unit pRBCs - Transfuse for Hgb < 7.0 - 2 large bore IVs - Monitor for signs of bleeding # Suspect Type II Non-ST Segment Elevation Myocardial Infarction (Demand Ischemia) due to above - Evaluation thus far: - EKG: reportedly without STEMI criteria, trend - Serial troponin: 135.0 -> 131.7 -> 131 - Transthoracic echocardiogram = "1. normal left ventricular ejection fraction 60-65%. 2. normal wall motion. 3. mild mitral regurgitation. 4. mild pulmonary regurgitation." - Management plan: - Consult Cardiology - recommendations appreciated - Aspirin on hold pending renal biopsy per Neph recs - If cardiac ischemia confirmed, plan to start beta-london, NISHA- inhibitor/ARB, statin as tolerated Luiz Nunez M.D.
[2022-12-23] MEDS: DOCUSATE NA 100 MG CAP PO SCH ×2 (14:00→20:23)
--- NOTE | 2022-12-23 15:42 | P.PN ---
Subjective Date of Service: 12/23/22 Chief Complaint: Acute Renal Failure Subjective: Other (Received HD today.) Physical Examination - Vital Signs Temperature: 97.5 F Blood Pressure: 124/77 Pulse: 88 Respirations: 18 Pulse Ox (%): 100 - Physical Exam General: In no apparent distress HEENT: Atraumatic, Normocephalic Neck: Supple, JVD not distended Respiratory: Other (Symmetric chest expansion) Cardiovascular: No rubs, No murmurs Gastrointestinal: Soft and benign, No guarding Musculoskeletal: No clubbing Integumentary: No warmth Neurological: Normal speech, Normal tone Urinary: Other (No bladder distention) External genitalia: Deferred Rectal: Deferred Assessment And Plan - Plan 1. Acute kidney injury. No history of chronic kidney disease. Clinical data indicates he has advanced CKD at baseline. HD initiated on 12/19. Received HD 12/19-12/21. HD receivejd today. Cont HD TTS. Kidney biopsy for Wed next week. 2. Hypertension. BP meds adjusted. 3. Anemia of chronic kidney disease. Continue TAMMIE. 4. Secondary hyperparathyroidism. Continue calcitriol and vitamin D. 5. HyperPO4. Renvela po tidwm. 6. Acidosis. Correction via HD. Physician Review: Patient Assessed, Agree with Above Assessment and Plan
[2022-12-23] MEDS: EPOETIN ALFA 10,000 UNIT/ML VIAL IV SCH (17:15)
[2022-12-23 20:36] LABS: RPR (Rapid Plasma Reagin) NON-REACT (NON-REACT)
[2022-12-24] MEDS ORDERED: HYDROMORPHONE HCL 0.5 MG/0.5 ML INJ IV ONE (03:14)
[2022-12-24 04:14] LABS: Absolute Lymphocytes (CBC) 1.3 K/uL (0.7-4.9); Hematocrit 24.1 % (39.6-49.0); Lymphocytes % 12.2 % (15.3-44.8); MCV 86.8 fL (80-100); MPV 8.4 fL (7.6-11.3); RBC Red Blood Cell Count 2.78 M/uL (4.33-5.43)
[2022-12-24 04:47] LABS: Albumin 3.1 g/dL (3.4-5.0); Phosphorus 3.5 mg/dL (2.5-4.9); Potassium 4.2 mmol/L (3.5-5.1)
[2022-12-24] MEDS: CALCIUM CARBONATE CHEW 500MG TAB PO SCH ×3 (08:09→17:04)
[2022-12-24] MEDS: THIAMINE HCL 100 MG TABLET PO SCH (08:10)
[2022-12-24] MEDS: AMLODIPINE 10 MG TAB PO SCH (08:10)
[2022-12-24] MEDS: DOCUSATE NA 100 MG CAP PO SCH ×2 (08:10→20:11)
[2022-12-24] MEDS: FOLIC ACID 1 MG TABLET PO SCH (08:10)
[2022-12-24] MEDS: carvediloL 6.25 MG TAB PO SCH (08:11)
[2022-12-24] MEDS: SEVELAMER CARBONATE 800 MG TABLET PO SCH ×3 (08:11→17:04)
[2022-12-24] MEDS: VITAMIN D 5,000 UNIT CAP PO SCH (08:12)
--- NOTE | 2022-12-24 13:13 | P.PN ---
Subjective Date of Service: 12/24/22 Chief Complaint: Acute Renal Failure No acute events overnight. He reports no concerns at this time. No new changes today. Awaiting renal biopsy - tentatively scheduled for 12/27/2022. Review of Systems 10-point ROS is otherwise unremarkable Physical Examination - Vital Signs Temperature: 97.4 F Blood Pressure: 150/88 Pulse: 81 Respirations: 16 Pulse Ox (%): 99 Assessment And Plan - Plan - Physical Exam General: Alert, In no apparent distress, Oriented x3 HEENT: Atraumatic, Sclerae nonicteric Neck: JVD not distended Respiratory: Clear to auscultation bilaterally Cardiovascular: Regular rate/rhythm, No murmurs, Edema (1+ BLE) Gastrointestinal: Soft, Non-distended, No tenderness Musculoskeletal: No clubbing Integumentary: No rashes Neurological: Normal speech, Normal affect # Suspect KDIGO Stage III Acute Kidney Injury vs Chronic Kidney Disease Stage V - now progressed End-Stage Renal Disease # Hyperkalemia - resolved # Hypertension - General Surgery consulted and he underwent dialysis catheter placement by Dr. Golden on 12/18/2022 - Nephrology consulted and he was started on hemodialysis - Appreciate Neph recs coordinating renal biopsy - renal biopsy tentatively scheduled for 12/27/2022 - Urinalysis = trace ketones, trace leukocyte esterase, 20-50 WBCs, 3+ protein - Monitor creatinine and urine output - Renally dose medications # Suspect Acute on Chronic Anemia of Chronic Kidney Disease - stable - S/P 1 unit pRBCs - Transfuse for Hgb < 7.0 - 2 large bore IVs - Monitor for signs of bleeding # Suspect Type II Non-ST Segment Elevation Myocardial Infarction (Demand Ischemia) due to above - Evaluation thus far: - EKG: reportedly without STEMI criteria, trend - Serial troponin: 135.0 -> 131.7 -> 131 - Transthoracic echocardiogram = "1. normal left ventricular ejection fraction 60-65%. 2. normal wall motion. 3. mild mitral regurgitation. 4. mild pulmonary regurgitation." - Management plan: - Consult Cardiology - recommendations appreciated - Aspirin on hold pending renal biopsy per Neph recs - If cardiac ischemia confirmed, plan to start beta-london, NISHA- inhibitor/ARB, statin as tolerated No new changes today. Waiting for renal biopsy for discharge planning. Luiz Nunez M.D.
--- NOTE | 2022-12-24 15:44 | P.PN ---
Subjective Date of Service: 12/24/22 Chief Complaint: Acute Renal Failure Subjective: Other (he received HD yesterday) Physical Examination - Vital Signs Temperature: 97.4 F Blood Pressure: 150/88 Pulse: 81 Respirations: 16 Pulse Ox (%): 99 - Physical Exam General: In no apparent distress HEENT: Atraumatic, Normocephalic Neck: Supple, JVD not distended Respiratory: Clear to auscultation bilaterally Cardiovascular: No rubs, No murmurs Gastrointestinal: Soft and benign, No guarding Musculoskeletal: No clubbing Integumentary: No warmth Neurological: Normal speech, Normal tone Urinary: Other (no bladder distention) External genitalia: Deferred Rectal: Deferred Assessment And Plan - Plan 1. Acute kidney injury. No history of chronic kidney disease. Clinical data indicates he has advanced CKD at baseline. HD initiated on 12/19. Received HD 12/19-12/21, 12/23. Cont HD TTS. Kidney biopsy on Sun next week. 2. Hypertension. BP meds adjusted. 3. Anemia of chronic kidney disease. Continue TAMMIE. 4. Secondary hyperparathyroidism. Continue calcitriol and vitamin D. 5. HyperPO4. Renvela po tidwm. 6. Acidosis. Correction via HD. Physician Review: Patient Assessed, Agree with Above Assessment and Plan
[2022-12-24] MEDS: carvediloL 12.5 MG TAB PO SCH (17:04)
[2022-12-25 04:25] LABS: Absolute Lymphocytes (CBC) 1.3 K/uL (0.7-4.9); Hematocrit 24.4 % (39.6-49.0); Lymphocytes % 12.3 % (15.3-44.8); MCV 88.1 fL (80-100); MPV 8.3 fL (7.6-11.3); RBC Red Blood Cell Count 2.78 M/uL (4.33-5.43)
[2022-12-25 04:41] LABS: Potassium 4.2 mmol/L (3.5-5.1)
[2022-12-25] MEDS: CALCIUM CARBONATE CHEW 500MG TAB PO SCH ×3 (09:16→17:33)
[2022-12-25] MEDS: carvediloL 12.5 MG TAB PO SCH ×2 (09:16→17:33)
[2022-12-25] MEDS: DOCUSATE NA 100 MG CAP PO SCH ×2 (09:16→21:21)
[2022-12-25] MEDS: VITAMIN D 5,000 UNIT CAP PO SCH (09:16)
[2022-12-25] MEDS: THIAMINE HCL 100 MG TABLET PO SCH (09:16)
[2022-12-25] MEDS: SEVELAMER CARBONATE 800 MG TABLET PO SCH ×3 (09:17→17:34)
[2022-12-25] MEDS: FOLIC ACID 1 MG TABLET PO SCH (09:17)
[2022-12-25] MEDS: AMLODIPINE 10 MG TAB PO SCH (09:19)
[2022-12-25] MEDS: CALCITROL 0.25 MCG CAP PO SCH (14:12)
--- NOTE | 2022-12-25 14:33 | RAD REPORT ---
EXAM DESCRIPTION: RAD - Ankle Left 2 View - 12/24/2022 2:56 am CLINICAL HISTORY: Left ankle pain COMPARISON: None. FINDINGS: 2 views of the left ankle. No acute fracture or dislocation. Normal osseous mineralization . IMPRESSION: 1. No acute fracture or dislocation. Electronically signed by: Rodney Gray 12/24/2022 4:52 AM DIRECTOR [employer] Due to temporary technical issues with the PACS/Fluency reporting system, reports are being signed by the in house radiologists without review as a courtesy to insure prompt reporting. The interpreting radiologist is fully responsible for the content of the report.
--- NOTE | 2022-12-26 04:35 | PN ---
Date of Progress Note: 12/25/2022 Chief Complaint: Severely diminished renal function, kidney failure. Subjective: Review of imaging tests showed diagnostic and to rule out any evide nce of acute kidney injury. Review of Systems: Denies fever, chills. Physical Examination: Lungs: Clear to auscultation bilaterally. Heart: S1, S2. Abdomen: Soft. Extremities: No edema. Impression And Plan: 1.Acute kidney injury. The patient does not have history of chronic kidney disease. Clinical data available for review shows previously creatinine level within normal limits, although the patient has not had a followup for last few years and dialysis was initiated on December 19 for metabolic cleara nce and ultrafiltration. The patient will continue dialysis via the catheter. 2.Anemia of chronic kidney disease. Continue TAMMIE. 3.Hypertension, on blood pressure medications. 4.Hyperphosphatemia. The patient is on Renvela with meals. 5.Acidosis, correction with hemodialysis. Continue to monitor. EB/MODL Voice ID: [id number] Report ID: [id number]
[2022-12-26 05:50] LABS: Absolute Lymphocytes (CBC) 1.2 K/uL (0.7-4.9); Hematocrit 24.2 % (39.6-49.0); Lymphocytes % 14.1 % (15.3-44.8); MCV 87.6 fL (80-100); MPV 7.9 fL (7.6-11.3); RBC Red Blood Cell Count 2.76 M/uL (4.33-5.43)
[2022-12-26 06:13] LABS: Magnesium 2.3 mg/dL (1.6-2.4); Phosphorus 4.8 mg/dL (2.5-4.9); Potassium 4.3 mmol/L (3.5-5.1)
[2022-12-26] MEDS: THIAMINE HCL 100 MG TABLET PO SCH (10:28)
[2022-12-26] MEDS: carvediloL 12.5 MG TAB PO SCH ×2 (10:28→16:35)
[2022-12-26] MEDS: VITAMIN D 5,000 UNIT CAP PO SCH (10:28)
[2022-12-26] MEDS: FOLIC ACID 1 MG TABLET PO SCH (10:28)
[2022-12-26] MEDS: SEVELAMER CARBONATE 800 MG TABLET PO SCH ×3 (10:28→16:36)
[2022-12-26] MEDS: AMLODIPINE 10 MG TAB PO SCH (10:29)
[2022-12-26] MEDS: DOCUSATE NA 100 MG CAP PO SCH ×2 (10:29→21:48)
[2022-12-26] MEDS: CALCIUM CARBONATE CHEW 500MG TAB PO SCH ×3 (10:29→16:35)
[2022-12-26 10:51] LABS: Urine 24HR Volume Metan 500 mL
[2022-12-26] MEDS: EPOETIN ALFA 10,000 UNIT/ML VIAL IV SCH (13:15)
--- NOTE | 2022-12-26 14:41 | P.PN ---
Subjective Date of Service: 12/26/22 Chief Complaint: Acute Renal Failure Subjective Pt presented with abdominal pain, nausea, vomiting, found to have LENY , hyperkalemia , started on Urgent HD today No overnight events seen and examined during HD plan for renal biopsy tomorrow Physical exam General: Awake, NAD HEENT: Atraumatic, Normocephalic Neck: Supple, no elevated JVD Respiratory: CTAB Cardiovascular: No rubs, No murmurs Gastrointestinal: Soft and benign, Non-distended Musculoskeletal: No clubbing Integumentary: No warmth 1. Acute kidney injury. No history of chronic kidney disease. Clinical data indicates he has advanced CKD at baseline. HD initiated on 12/19. Received HD 12/19-12/21, 12/23. Cont HD TTS. Kidney biopsy on Sun. Hypertension. BP meds adjusted. 3. Anemia of chronic kidney disease. Continue TAMMIE. 4. Secondary hyperparathyroidism. Continue calcitriol and vitamin D. 5. HyperPO4. Renvela po tidwm. 6. Acidosis. Correction via HD. Physical Examination - Vital Signs Temperature: 97.3 F Blood Pressure: 105/65 Pulse: 90 Respirations: 20 Pulse Ox (%): 100 Assessment And Plan Physician Review: Patient Assessed, Agree with Above Assessment and Plan
[2022-12-26 14:43] LABS: Beta Globulin 24 HR Urine 0 %; Gamma Globulin, 24hr Urine 0 %; Interpretation: REPORT; Protein/Crea Ratio in g 8024 mg/g creat (<100); Protein/Crea Ratio in mg 8.024 (<0.100); Urine Alpha-2-Globulins, 24 Hr 0 %; Urine PEP Abn Protein Band1 REPORT; Urine Total Volume 24 Hours 500 mL
[2022-12-26 16:04] VITALS: O2SAT 98
[2022-12-26 20:21] LABS: KAPPA LIGHT CHAIN, FREE SERUM 107.7 mg/L (3.3-19.4)
[2022-12-26] MEDS: ACETAMINOPHEN 500 MG TAB PO PRN (21:52)
--- NOTE | 2022-12-27 06:15 | P.PN ---
Subjective Date of Service: 12/25/22 Subjective: No new changes, No C/O voiced, Improving Review of Systems 10-point ROS is otherwise unremarkable Physical Examination - Vital Signs Temperature: 97.8 F Blood Pressure: 150/84 Pulse: 97 Respirations: 16 Pulse Ox (%): 97 - Physical Exam General: Alert, In no apparent distress HEENT: Atraumatic, PERRLA, EOMI Neck: Supple, JVD not distended Respiratory: Clear to auscultation bilaterally, Normal air movement Cardiovascular: Regular rate/rhythm, Normal S1 S2 Gastrointestinal: Normal bowel sounds, No tenderness Musculoskeletal: No tenderness Integumentary: No rashes Neurological: Normal speech, Normal tone, Normal affect Lymphatics: No axilla or inguinal lymphadenopathy - Studies Medications List Reviewed: Yes Assessment & Plan - Problems (Diagnosis) (1) ESRD (end stage renal disease) Current Visit: Yes Status: Acute (2) Hypertension Current Visit: Yes Status: Acute Qualifiers: Hypertension type: secondary to other renal disorders Qualified Code(s): I15.1 - Hypertension secondary to other renal disorders; N28.89 - Other specified disorders of kidney and ureter (3) Anemia Current Visit: Yes Status: Chronic Qualifiers: Anemia type: unspecified type Qualified Code(s): D64.9 - Anemia, unspecified (4) Crohn's disease Current Visit: Yes Status: Chronic Qualifiers: Gastrointestinal tract location: unspecified location Digestive disease complication type: unspecified complication Qualified Code(s): K50.919 - Crohn's disease, unspecified, with unspecified complications - Plan Plan: 1. renal biopsy on Sunday 2. Monitor renal function 3. Strict blood sugar control 4. out of bed and ambulate 5. arrange for hemodialysis clinic as an outpatient 6. Gi DVT prophylaxis - Advance Directives Does patient have a Living Will: No Does patient have a Durable POA for Healthcare: No - Code Status/Comfort Care Code Status: Full Code Physician Review: Patient Assessed, Agree with Above Assessment and Plan
--- NOTE | 2022-12-27 06:17 | P.PN ---
Date of Service: 12/26/22 Subjective patient is doing well. Patient denies any new complaints. Scheduled for renal biopsy in the morning. Anticipate discharge home afterwards. Patient will go to hemodialysis later today as well. Review of Systems 10-point ROS is otherwise unremarkable Physical Examination - Vital Signs Reviewed - Physical Exam General: Alert, In no apparent distress Respiratory: Clear to auscultation bilaterally, Normal air movement Cardiovascular: Regular rate/rhythm, Normal S1 S2 Gastrointestinal: Normal bowel sounds, No tenderness Musculoskeletal: No tenderness Neurological: Normal speech, Normal tone, Normal affect Assessment & Plan - Problems (Diagnosis) (1) ESRD (end stage renal disease) Current Visit: Yes Status: Acute (2) Hypertension Current Visit: Yes Status: Acute Qualifiers: Hypertension type: secondary to other renal disorders Qualified Code(s): I15.1 - Hypertension secondary to other renal disorders; N28.89 - Other specified disorders of kidney and ureter (3) Anemia Current Visit: Yes Status: Chronic Qualifiers: Anemia type: unspecified type Qualified Code(s): D64.9 - Anemia, unspecified (4) Crohn's disease Current Visit: Yes Status: Chronic Qualifiers: Gastrointestinal tract location: unspecified location Digestive disease complication type: unspecified complication Qualified Code(s): K50.919 - Crohn's disease, unspecified, with unspecified complications - Plan Plan: 1. renal biopsy on Sunday 2. Monitor renal function 3. Strict blood sugar control 4. out of bed and ambulate 5. arrange for hemodialysis clinic as an outpatient 6. Gi DVT prophylaxis
[2022-12-27 07:05] LABS: Absolute Lymphocytes (CBC) 1.1 K/uL (0.7-4.9); Hematocrit 22.4 % (39.6-49.0); Lymphocytes % 17.3 % (15.3-44.8); MCV 87.9 fL (80-100); MPV 7.9 fL (7.6-11.3); RBC Red Blood Cell Count 2.55 M/uL (4.33-5.43)
[2022-12-27 07:09] LABS: Protime INR 1.01
[2022-12-27 07:29] LABS: Magnesium 2.4 mg/dL (1.6-2.4)
[2022-12-27] MEDS: FOLIC ACID 1 MG TABLET PO SCH (09:17)
[2022-12-27] MEDS: CALCIUM CARBONATE CHEW 500MG TAB PO SCH ×3 (09:17→16:11)
[2022-12-27] MEDS: DOCUSATE NA 100 MG CAP PO SCH (09:17)
[2022-12-27] MEDS: AMLODIPINE 10 MG TAB PO SCH (09:17)
[2022-12-27] MEDS: carvediloL 12.5 MG TAB PO SCH (09:17)
[2022-12-27] MEDS: VITAMIN D 5,000 UNIT CAP PO SCH (09:17)
[2022-12-27] MEDS: SEVELAMER CARBONATE 800 MG TABLET PO SCH ×2 (09:17→12:22)
[2022-12-27] MEDS: THIAMINE HCL 100 MG TABLET PO SCH (09:21)
[2022-12-27] MEDS ORDERED: FENTANYL CITR 100 MCG/2 ML ONE (12:38)
[2022-12-27] MEDS ORDERED: MIDAZOLAM HCL 2 MG/2 ML INJ ONE (12:38)
[2022-12-27] MEDS ORDERED: NALOXONE 0.4 MG/ML VIAL ONE (12:38)
[2022-12-27] MEDS: CALCITROL 0.25 MCG CAP PO SCH (13:44)
--- NOTE | 2022-12-27 13:50 | PN ---
Date of Progress Note: 12/27/2022 Subjective: The patient was admitted with acute kidney injury, hyperkalemia. The patient was initia alpa on dialysis. Workup showed more chronic kidney disease, but the patient had normal kidney functi on back in 2019, no clear insults. Physical Examination: Vital Signs: Blood pressure 134/83, pulse of 86, afebrile. Chest: Clear to auscultation. Heart: S1, S2. Regular. Abdomen: Soft, nontender. Extremities: No edema. Neurologic: Alert. No focality. Laboratory Data: Hemoglobin 7.6. Sodium 138, potassium 4, bicarb 28, BUN 56, creatinine 12.4, GFR o f 5, calcium 8.7, phosphorus 4.8, magnesium 2.4, albumin 3.1. Corrected calcium is 9.5. Current Medications: The patient on include; 1.Epogen. 2.Calcium carbonate. 3.Amlodipine 10 mg. 4.Carvedilol 12.5. 5.Tylenol. 6.Renvela. 7.Calcitriol. 8.Thiamin. Assessment And Plan: 1.Acute kidney injury, unknown etiology, mostly end-stage renal disease given the negative serology workup and no suspicious history on the patient and negative serology workup. The patient will have a biopsy today. The patient had also M spike. We will follow up on the biopsy, immunofixation, elev ation in kappa and lambda with normal ratio. We will follow up with biopsy. 2.Anemia with questionable positive serum protein electrophoresis. We will follow up with biopsy. Continue TAMMIE. 3.Secondary hyperparathyroidism. Continue calcitriol and continue Renvela. 4.Hypertension. I am going to go ahead and add lisinopril for the patient. 5.Hyperkalemia, status post dialysis, resolved. 6.Nephrotic range of proteinuria with only high blood pressure. We will follow up on the biopsy. 7.Secondary hypertension. Workup was negative. TC/MICHELLE Voice ID: [id number] Report ID: [id number]
[2022-12-27 14:50] VITALS: BP 135/84; TEMP 97.7
--- NOTE | 2022-12-28 08:07 | RAD REPORT ---
EXAM DESCRIPTION: CT - Renal Biopsy CT - 12/28/2022 7:55 am CLINICAL HISTORY: renal biopsy COMPARISON: No comparisons FINDINGS: Preoperative diagnosis: Renal failure Post operative diagnosis: Same Conscious Sedation: 2 milligram Versed, 50 microgram fentanyl. Patient was continuously monitored by nursing staff. Contrast used: NONE Estimated blood loss: less than 5 mL Specimens: 2 x 18 gauge specimens obtained of the lower pole of the left kidney. Postprocedure imaging demonstrated no complications. Samples were given to pathology for analysis. Th e patient tolerated the procedure without immediate complication and transferred to the recovery room in stable condition. IMPRESSION: Technically successful CT-guided random renal biopsy with conscious sedation. All CT scans are performed using dose optimization technique as appropriate and may include automated exposure control or mA/KV adjustment according to patient size.
[2022-12-28] MEDS ORDERED: lisinopriL 10 MG TAB PO SCH (09:00)
== END 2022-12-27 16:50 | disposition home or self-care (01) | DRG 674 ==
LOC: ER 22:16 → ERHOLD 12-18 02:02 → 4TH 12-18 03:41 → 2ND 12-23 17:12
PROVIDERS: ADMIT Internal Medicine; ATTEND Hospitalist
PROC: 02HV33Z Insertion of Infusion Device into Superior Vena Cava, Percutaneous Approach (ICD-10-PCS; 2022-12-18)
PROC: 5A1D70Z Performance of Urinary Filtration, Intermittent, Less than 6 Hours Per Day (ICD-10-PCS; 2022-12-18)
PROC: 0JH63XZ Insertion of Tunneled Vascular Access Device into Chest Subcutaneous Tissue and Fascia, Percutaneous Approach (ICD-10-PCS; principal; 2022-12-18 16:30)
PROC: 30233N1 Transfusion of Nonautologous Red Blood Cells into Peripheral Vein, Percutaneous Approach (ICD-10-PCS; 2022-12-22)
PROC: 0TB13ZX Excision of Left Kidney, Percutaneous Approach, Diagnostic (ICD-10-PCS; 2022-12-27)
DX: N17.9 Acute kidney failure, unspecified (principal); E87.20 Acidosis, unspecified; K50.919 Crohn's disease, unspecified, with unspecified complications; I24.8 Other forms of acute ischemic heart disease; N18.6 End stage renal disease; I15.1 Hypertension secondary to other renal disorders; I34.0 Nonrheumatic mitral (valve) insufficiency; E87.5 Hyperkalemia; E21.3 Hyperparathyroidism, unspecified; D63.1 Anemia in chronic kidney disease; E21.1 Secondary hyperparathyroidism, not elsewhere classified; E55.9 Vitamin D deficiency, unspecified; N28.89 Other specified disorders of kidney and ureter; R80.9 Proteinuria, unspecified; Z99.2 Dependence on renal dialysis; Z90.49 Acquired absence of other specified parts of digestive tract; Z79.899 Other long term (current) drug therapy
CPT/HCPCS: 36415; 50200; 71045; 71046; 74176; 76000; 76770; 77012; 80048; 80053; 80061; 80069; 80074; 81003; 81015; 82043; 82306; 82550; 82570; 82728; 82805; 83036; 83520; 83540; 83690; 83735; 83835; 83930; 83935; 83970; 84100; 84132; 84165; 84166; 84300; 84443; 84466; 84484; 84550; 85014; 85018; 85025; 85044; 85610; 85730; 86021; 86038; 86140; 86160; 86334; 86592; 86706; 86803; 86850; 86900; 86901; 87045; 87046; 87086; 87088; 87389; 87811; 88300; 89055; 90935; 93005; 93306; 93975; 96365; 96375; 99285; A4216; C1752; G0103; J0360; J0610; J0690; J1100; J1170; J1644; J2001; J2150; J2250; J2310; J2370; J2405; J2704; J3010; J7030; J7040; J7050; P9016

== ENCOUNTER 2023-08-18 17:27 | Observation (INO) | payer OTHER ==
--- OUTSIDE RECORDS SUMMARY | 2023-08-18 17:32 | XMS REPORT | Continuity of Care Document ---
:1985 Author Organization [facility] t Address [address] [facility] [address] [place] [id number] Care Team Providers Name Role Phone Asked, No Pcp Primary Care Physician Unavailable Bertha Villalba MD Attending Clinician Chaz Ramesh MD Attending Clinician Te Montesinos MD Attending Clinician Brandie Martinez Attending Clinician Celina Crockett MA Attending Clinician Unavailable Jaciel Victor LCSW Attending Clinician Unavailable Bonifacio DUBOIS, Meet [place] Attending Clinician Scarlet Juares MD Attending Clinician Worker, Transplant Social Attending Clinician Unavailable BERTHA VILLALBA Attending Clinician Unavailable Brian DUBOIS, Kate Junior Attending Clinician [phone] Developmental Services Worker, Transplant Attending Clinician Unavailable Labs, Lcc Transplant Attending Clinician Unavailable Renal, Transplant Class Attending Clinician Unavailable Doctor Unassigned, [place] Attending Clinician Unavailable Amarilis Shrestha DO Attending Clinician CHAZ RAMESH Admitting Clinician Unavailable Payers Payer Name Policy Type Policy Number Effective Date Expiration Date S ource Problems Condition Condition Condition Status Onset Resolution Last Treating Co mments Source Name Details Category Date Date Treatment Clinician Date ESRD (end ESRD (end Disease Active Uni vers stage stage 8-15 ity of renal renal 00:00: [place] disease) disease) 00 Medica l on on Branch dialysis dialysis HTN HTN Disease Active Univers (hypertens (hypertens 8-15 it y of ion) ion) 00:00: [address] Branch Primary Primary Disease Active Univers hypertensi hypertensi 8-15 it y of on on 00:00: [address] End-stage End-stage Disease Active Met gabriela renal renal 6-13 st disease disease 00:00: Hospita 00 l Allergies, Adverse Reactions, Alerts Allergy Allergy Status Severity Reaction(s) Onset Inactive Treating Comm ents Source Name Type Date Date Clinician NO KNOWN Drug Active Univers ALLERGIE Class ity of S [facility] Family History Family Member Diagnosis Comments Start Date Stop Date Source Natural mother Hypertension [facility] Natural mother Kidney failure Method [facility] Natural sister Hypertension [facility] Social History Social Habit Start Date Stop Date Quantity Comments Source Gender identity [facility] Sexual orientation Method [facility] Alcohol intake 2023-07-20 2023-07-20 Current drinker of [facility] 00:00:00 00:00:00 alcohol (finding) Hospita l History of Social 2023-07-20 2023-07-[address] function 00:00:00 00:00:00 Hospital Tobacco use and 2023-04-17 2023-04-17 Smokeless tobacco [facility] exposure 00:00:00 00:00:00 non-user Hospital Alcohol Comment 2023-04-17 2023-04-17 occassionally Method ist 00:00:00 00:00:00 Hospital Sex Ass[birth year] At [birth year] Religious 00:00:00 00:00:00 Hospital Smoking Status Start Date Stop Date Source Tobacco smoking consumption [facility] Never smoked tobacco Religious H ospital Medications Ordered Filled Start Stop Current Ordering Indication Dosage Frequency Signature Comments Components Source Medication Medication Date Date Medication? Clinician (SIG) Name Name losartan Yes 100mg QD Take 1 Method i (COZAAR) 9-[address] 100 MG 10:27: (100 mg Hospita tablet 49 total) by l mouth daily. cholecalcif Yes Take by Met gabriela daniel, 9-[address] vitamin D3, 10:27: Hospit a (VITAMIN D3 49 l ORAL) losartan 2022-0 Yes 100mg QD Take 1 Method i (COZAAR) 07-[address] 100 MG 10:27: (100 mg Hospita tablet 49 total) by l mouth daily. cholecalcif 2022-0 Yes Take by Met gabriela sanchez, [address] vitamin D3, 10:27: Hospit a (VITAMIN D3 49 l ORAL) docusate 2022-0 202- No 100mg Q.5D Take 1 Metho di sodium 07-[address] (Colace) 00:00: 04:59 (100 mg Hospi ta 100 MG 00 :00 total) by l capsule mouth 2 (two) times a day for 7 days. docusate 2022-0 2022- No 100mg Q.5D Take 1 Metho di sodium 07-[address] (Colace) 00:00: 04:59 (100 mg Hospi ta 100 MG 00 :00 total) by l capsule mouth 2 (two) times a day for 7 days. traMADoL 2022-0 2022- [place] [id number] 50mg Q6H Take 1 Metho di (Ultram) 50 07-19 tablet (50 s t mg tablet 00:00: 04:59 mg total) Ho spita 00 :00 by mouth l every 6 (six) hours as needed for moderate pain for up to 4 days .acute pain. traMADoL 2022-0 2022- No [id number] 50mg Q6H Take 1 Metho di (Ultram) 50 07-19 tablet (50 s t mg tablet 00:00: 04:59 mg total) Ho spita 00 :00 by mouth l every 6 (six) hours as needed for moderate pain for up to 4 days .acute pain. lisinopriL 2022-0 Yes 40mg Take 1 Unive rs 40 mg 8-15 tablet by ity of tablet 13:10: mouth in [place] 13 the Medical morning. Branch amLODIPine 2022-0 Yes 10mg Take 1 Unive rs 10 mg 8-15 tablet by ity of tablet 13:10: mouth in [place] 13 the Medical morning. Branch sevelamer 2022-0 Yes 800mg Take 1 Unive rs (RENVELA) 8-15 tablet by ity o f 800 mg 13:10: mouth in [place] tablet 13 the Medical morning Branch and 1 tablet at noon and 1 tablet in the evening. Take with meals. carvediloL 2023-0 Yes 12.5mg Take 1 Uni vers 12.5 mg 8-15 tablet by ity of tablet 13:10: mouth in [place] 13 the Medical morning Branch and 1 tablet in the evening. Take with meals. lisinopriL 2023-0 Yes 40mg Take 1 Unive rs 40 mg 8-15 tablet by ity of tablet 13:10: mouth in [place] [address] the Medical morning. Branch amLODIPine 2023-0 Yes 10mg Take 1 Unive rs 10 mg 8-15 tablet by ity of tablet 13:10: mouth in [place] [address] the Medical morning. Branch sevelamer 2023-0 Yes 800mg Take 1 Unive rs (RENVELA) 8-15 tablet by ity o f 800 mg 13:10: mouth in [place] tablet 13 the Medical morning Branch and 1 tablet at noon and 1 tablet in the evening. Take with meals. carvediloL 2023-0 Yes 12.5mg Take 1 Uni vers 12.5 mg 8-15 tablet by ity of tablet 13:10: mouth in [place] [address] the Medical morning Branch and 1 tablet in the evening. Take with meals. lisinopriL 2023-0 Yes 40mg Take 1 Unive rs 40 mg 8-15 tablet by ity of tablet 13:10: mouth in [place] [address] the Medical morning. Branch amLODIPine 2023-0 Yes 10mg Take 1 Unive rs 10 mg 8-15 tablet by ity of tablet 13:10: mouth in [place] [address] the Medical morning. Branch sevelamer 2023-0 Yes 800mg Take 1 Unive rs (RENVELA) 8-15 tablet by ity o f 800 mg 13:10: mouth in [place] tablet 13 the Medical morning Branch and 1 tablet at noon and 1 tablet in the evening. Take with meals. carvediloL 2023-0 Yes 12.5mg Take 1 Uni vers 12.5 mg 8-15 tablet by ity of tablet 13:10: mouth in [place] [address] the Medical morning Branch and 1 tablet in the evening. Take with meals. lisinopriL 2023-0 Yes 40mg Take 1 Unive rs 40 mg 8-15 tablet by ity of tablet 13:10: mouth in [place] [address] the Medical morning. Branch amLODIPine 2023-0 Yes 10mg Take 1 Unive rs 10 mg 8-15 tablet by ity of tablet 13:10: mouth in [place] [address] the Medical morning. Branch sevelamer 2023-0 Yes 800mg Take 1 Unive rs (RENVELA) 8-15 tablet by ity o f 800 mg 13:10: mouth in [place] tablet 13 the Medical morning Branch and 1 tablet at noon and 1 tablet in the evening. Take with meals. carvediloL 2023-0 Yes 12.5mg Take 1 Uni vers 12.5 mg 8-15 tablet by ity of tablet 13:10: mouth in [place] [address] the Medical morning Branch and 1 tablet in the evening. Take with meals. lisinopriL 2023-0 Yes 40mg Take 1 Unive rs 40 mg 8-15 tablet by ity of tablet 13:10: mouth in [place] [address] the Medical morning. Branch amLODIPine 2023-0 Yes 10mg Take 1 Unive rs 10 mg 8-15 tablet by ity of tablet 13:10: mouth in [place] [address] the Medical morning. Branch sevelamer 2023-0 Yes 800mg Take 1 Unive rs (RENVELA) 8-15 tablet by ity o f 800 mg 13:10: mouth in [place] tablet 13 the Medical morning Branch and 1 tablet at noon and 1 tablet in the evening. Take with meals. carvediloL 2023-0 Yes 12.5mg Take 1 Uni vers 12.5 mg 8-15 tablet by ity of tablet 13:10: mouth in [place] [address] the Medical morning Branch and 1 tablet in the evening. Take with meals. lisinopriL 2023-0 Yes 40mg Take 1 Unive rs 40 mg 8-15 tablet by ity of tablet 13:10: mouth in [place] [address] the Medical morning. Branch amLODIPine 2023-0 Yes 10mg Take 1 Unive rs 10 mg 8-15 tablet by ity of tablet 13:10: mouth in [place] [address] the Medical morning. Branch sevelamer 2023-0 Yes 800mg Take 1 Unive rs (RENVELA) 8-15 tablet by ity o f 800 mg 13:10: mouth in [place] tablet 13 the Medical morning Branch and 1 tablet at noon and 1 tablet in the evening. Take with meals. carvediloL 2023-0 Yes 12.5mg Take 1 Uni vers 12.5 mg 8-15 tablet by ity of tablet 13:10: mouth in [place] [address] the Medical morning Branch and 1 tablet in the evening. Take with meals. lisinopriL 2023-0 Yes 40mg Take 1 Unive rs 40 mg 8-15 tablet by ity of tablet 13:10: mouth in [place] [address] the Medical morning. Branch amLODIPine 2023-0 Yes 10mg Take 1 Unive rs 10 mg 8-15 tablet by ity of tablet 13:10: mouth in [place] [address] the Medical morning. Branch sevelamer 2023-0 Yes 800mg Take 1 Unive rs (RENVELA) 8-15 tablet by ity o f 800 mg 13:10: mouth in [place] tablet 13 the Medical morning Branch and 1 tablet at noon and 1 tablet in the evening. Take with meals. carvediloL 2023-0 Yes 12.5mg Take 1 Uni vers 12.5 mg 8-15 tablet by ity of tablet 13:10: mouth in [place] [address] the Medical morning Branch and 1 tablet in the evening. Take with meals. lisinopriL 2023-0 Yes 40mg Take 1 Unive rs 40 mg 8-15 tablet by ity of tablet 13:10: mouth in [place] [address] the Medical morning. Branch amLODIPine 2023-0 Yes 10mg Take 1 Unive rs 10 mg 8-15 tablet by ity of tablet 13:10: mouth in [place] [address] the Medical morning. Branch sevelamer 2023-0 Yes 800mg Take 1 Unive rs (RENVELA) 8-15 tablet by ity o f 800 mg 13:10: mouth in [place] tablet 13 the Medical morning Branch and 1 tablet at noon and 1 tablet in the evening. Take with meals. carvediloL 2023-0 Yes 12.5mg Take 1 Uni vers 12.5 mg 8-15 tablet by ity of tablet 13:10: mouth in [place] [address] the Medical morning Branch and 1 tablet in the evening. Take with meals. lisinopriL 2023-0 Yes 40mg Take 1 Unive rs 40 mg 8-15 tablet by ity of tablet 13:10: mouth in [place] [address] the Medical morning. Branch amLODIPine 2023-0 Yes 10mg Take 1 Unive rs 10 mg 8-15 tablet by ity of tablet 13:10: mouth in [place] 13 the Medical morning. Branch sevelamer 2023-0 Yes 800mg Take 1 Unive rs (RENVELA) 8-15 tablet by ity o f 800 mg 13:10: mouth in [place] tablet 13 the Medical morning Branch and 1 tablet at noon and 1 tablet in the evening. Take with meals. carvediloL 2023-0 Yes 12.5mg Take 1 Uni vers 12.5 mg 8-15 tablet by ity of tablet 13:10: mouth in [place] [address] the [facility] morning Branch and 1 tablet in the evening. Take with meals. lisinopriL 2023-0 Yes 40mg Take 1 Unive rs 40 mg 8-15 tablet by ity of tablet 13:10: mouth in [place] [address] the Medical morning. Branch amLODIPine 2023-0 Yes 10mg Take 1 Unive rs 10 mg 8-15 tablet by ity of tablet 13:10: mouth in [place] [address] the Medical morning. Branch sevelamer 2023-0 Yes 800mg Take 1 Unive rs (RENVELA) 8-15 tablet by ity o f 800 mg 13:10: mouth in [place] tablet 13 the [facility] Branch and 1 tablet at noon and 1 tablet in the evening. Take with meals. carvediloL 2023-0 Yes 12.5mg Take 1 Uni vers 12.5 mg 8-15 tablet by ity of tablet 13:10: mouth in [address] Branch and 1 tablet in the evening. Take with meals. lisinopriL 2023-0 Yes 40mg Take 1 Unive rs 40 mg 8-15 tablet by ity of tablet 13:10: mouth in [place] [address] the Medical morning. Branch amLODIPine 2023-0 Yes 10mg Take 1 Unive rs 10 mg 8-15 tablet by ity of tablet 13:10: mouth in [place] [address] the Medical morning. Branch sevelamer 2023-0 Yes 800mg Take 1 Unive rs (RENVELA) 8-15 tablet by ity o f 800 mg 13:10: mouth in [place] tablet 13 the Medical morning Branch and 1 tablet at noon and 1 tablet in the evening. Take with meals. carvediloL 2023-0 Yes 12.5mg Take 1 Uni vers 12.5 mg 8-15 tablet by ity of tablet 13:10: mouth in [place] [address] the [facility] morning Branch and 1 tablet in the evening. Take with meals. lisinopriL 2023-0 Yes 40mg Take 1 Unive rs 40 mg 8-15 tablet by ity of tablet 13:10: mouth in [place] [address] the Medical morning. Branch amLODIPine 2023-0 Yes 10mg Take 1 Unive rs 10 mg 8-15 tablet by ity of tablet 13:10: mouth in [place] [address] the Medical morning. Branch sevelamer 2023-0 Yes 800mg Take 1 Unive rs (RENVELA) 8-15 tablet by ity o f 800 mg 13:10: mouth in [place] tablet 13 the Medical morning Branch and 1 tablet at noon and 1 tablet in the evening. Take with meals. carvediloL 2023-0 Yes 12.5mg Take 1 Uni vers 12.5 mg 8-15 tablet by ity of tablet 13:10: mouth in [place] [address] the Medical morning Branch and 1 tablet in the evening. Take with meals. lisinopriL 2023-0 Yes 40mg Take 1 Unive rs 40 mg 8-15 tablet by ity of tablet 13:10: mouth in [place] [address] the Medical morning. Branch amLODIPine 2023-0 Yes 10mg Take 1 Unive rs 10 mg 8-15 tablet by ity of tablet 13:10: mouth in [place] [address] the Medical morning. Branch sevelamer 2023-0 Yes 800mg Take 1 Unive rs (RENVELA) 8-15 tablet by ity o f 800 mg 13:10: mouth in [place] tablet 13 the [facility] Branch and 1 tablet at noon and 1 tablet in the evening. Take with meals. carvediloL 2023-0 Yes 12.5mg Take 1 Uni vers 12.5 mg 8-15 tablet by ity of tablet 13:10: mouth in [place] [address] the [facility] morning Branch and 1 tablet in the evening. Take with meals. lisinopriL 2023-0 Yes 40mg Take 1 Unive rs 40 mg 8-15 tablet by ity of tablet 13:10: mouth in [place] [address] the Medical morning. Branch amLODIPine 2023-0 Yes 10mg Take 1 Unive rs 10 mg 8-15 tablet by ity of tablet 13:10: mouth in [place] [address] the Medical morning. Branch sevelamer 2023-0 Yes 800mg Take 1 Unive rs (RENVELA) 8-15 tablet by ity o f 800 mg 13:10: mouth in [place] tablet 13 the Medical morning Branch and 1 tablet at noon and 1 tablet in the evening. Take with meals. carvediloL 2023-0 Yes 12.5mg Take 1 Uni vers 12.5 mg 8-15 tablet by ity of tablet 13:10: mouth in [place] 13 the Medical morning Branch and 1 tablet in the evening. Take with meals. lisinopriL 2023-0 Yes 40mg Take 1 Unive rs 40 mg 8-15 tablet by ity of tablet 13:10: mouth in [place] [address] the Medical morning. Branch amLODIPine 2023-0 Yes 10mg Take 1 Unive rs 10 mg 8-15 tablet by ity of tablet 13:10: mouth in [place] [address] the Medical morning. Branch sevelamer 2023-0 Yes 800mg Take 1 Unive rs (RENVELA) 8-15 tablet by ity o f 800 mg 13:10: mouth in [place] tablet 13 the Medical morning Branch and 1 tablet at noon and 1 tablet in the evening. Take with meals. carvediloL 2023-0 Yes 12.5mg Take 1 Uni vers 12.5 mg 8-15 tablet by ity of tablet 13:10: mouth in [place] [address] the Medical morning Branch and 1 tablet in the evening. Take with meals. lisinopriL 2023-0 Yes 40mg Take 1 Unive rs 40 mg 8-15 tablet by ity of tablet 13:10: mouth in [place] [address] the Medical morning. Branch amLODIPine 2023-0 Yes 10mg Take 1 Unive rs 10 mg 8-15 tablet by ity of tablet 13:10: mouth in [place] [address] the Medical morning. Branch sevelamer 2023-0 Yes 800mg Take 1 Unive rs (RENVELA) 8-15 tablet by ity o f 800 mg 13:10: mouth in [place] tablet 13 the Medical morning Branch and 1 tablet at noon and 1 tablet in the evening. Take with meals. carvediloL 2023-0 Yes 12.5mg Take 1 Uni vers 12.5 mg 8-15 tablet by ity of tablet 13:10: mouth in [place] [address] the Medical morning Branch and 1 tablet in the evening. Take with meals. lisinopriL 2023-0 Yes 40mg Take 1 Unive rs 40 mg 8-15 tablet by ity of tablet 13:10: mouth in [place] [address] the Medical morning. Branch amLODIPine 2023-0 Yes 10mg Take 1 Unive rs 10 mg 8-15 tablet by ity of tablet 13:10: mouth in [place] [address] the Medical morning. Branch sevelamer 2023-0 Yes 800mg Take 1 Unive rs (RENVELA) 8-15 tablet by ity o f 800 mg 13:10: mouth in [place] tablet 13 the Medical morning Branch and 1 tablet at noon and 1 tablet in the evening. Take with meals. carvediloL 2023-0 Yes 12.5mg Take 1 Uni vers 12.5 mg 8-15 tablet by ity of tablet 13:10: mouth in [place] [address] the Medical morning Branch and 1 tablet in the evening. Take with meals. lisinopriL 2023-0 Yes 40mg Take 1 Unive rs 40 mg 8-15 tablet by ity of tablet 13:10: mouth in [place] [address] the Medical morning. Branch amLODIPine 2023-0 Yes 10mg Take 1 Unive rs 10 mg 8-15 tablet by ity of tablet 13:10: mouth in [place] [address] the Medical morning. Branch sevelamer 2023-0 Yes 800mg Take 1 Unive rs (RENVELA) 8-15 tablet by ity o f 800 mg 13:10: mouth in [place] tablet 13 the Medical morning Branch and 1 tablet at noon and 1 tablet in the evening. Take with meals. carvediloL 2023-0 Yes 12.5mg Take 1 Uni vers 12.5 mg 8-15 tablet by ity of tablet 13:10: mouth in [place] [address] the Medical morning Branch and 1 tablet in the evening. Take with meals. lisinopriL 2023-0 Yes 40mg Take 1 Unive rs 40 mg 8-15 tablet by ity of tablet 13:10: mouth in [place] [address] the Medical morning. Branch amLODIPine 2023-0 Yes 10mg Take 1 Unive rs 10 mg 8-15 tablet by ity of tablet 13:10: mouth in [place] [address] the Medical morning. Branch sevelamer 2023-0 Yes 800mg Take 1 Unive rs (RENVELA) 8-15 tablet by ity o f 800 mg 13:10: mouth in [place] tablet 13 the Medical morning Branch and 1 tablet at noon and 1 tablet in the evening. Take with meals. carvediloL 2023-0 Yes 12.5mg Take 1 Uni vers 12.5 mg 8-15 tablet by ity of tablet 13:10: mouth in [place] [address] the Medical morning Branch and 1 tablet in the evening. Take with meals. lisinopriL 2023-0 Yes 40mg Take 1 Unive rs 40 mg 8-15 tablet by ity of tablet 13:10: mouth in [place] [address] the Medical morning. Branch amLODIPine 2023-0 Yes 10mg Take 1 Unive rs 10 mg 8-15 tablet by ity of tablet 13:10: mouth in [place] [address] the Medical morning. Branch sevelamer 2023-0 Yes 800mg Take 1 Unive rs (RENVELA) 8-15 tablet by ity o f 800 mg 13:10: mouth in [place] tablet 13 the Medical morning Branch and 1 tablet at noon and 1 tablet in the evening. Take with meals. carvediloL 2023-0 Yes 12.5mg Take 1 Uni vers 12.5 mg 8-15 tablet by ity of tablet 13:10: mouth in [place] [address] the Medical morning Branch and 1 tablet in the evening. Take with meals. lisinopriL 2023-0 Yes 40mg Take 1 Unive rs 40 mg 8-15 tablet by ity of tablet 13:10: mouth in [place] [address] the Medical morning. Branch amLODIPine 2023-0 Yes 10mg Take 1 Unive rs 10 mg 8-15 tablet by ity of tablet 13:10: mouth in [place] [address] the Medical morning. Branch sevelamer 2023-0 Yes 800mg Take 1 Unive rs (RENVELA) 8-15 tablet by ity o f 800 mg 13:10: mouth in [place] tablet 13 the Medical morning Branch and 1 tablet at noon and 1 tablet in the evening. Take with meals. carvediloL 2023-0 Yes 12.5mg Take 1 Uni vers 12.5 mg 8-15 tablet by ity of tablet 13:10: mouth in [place] [address] the Medical morning Branch and 1 tablet in the evening. Take with meals. docusate 2023-0 2023- No 100mg Q.5D Take 1 Metho di sodium 05-[address] (Colace) 00:00: 04:59 (100 mg Hospi ta 100 MG 00 :00 total) by l capsule mouth 2 (two) times a day for 7 days. docusate 2023-0 2023- No 100mg Q.5D Take 1 Metho di sodium 05-[address] (Colace) 00:00: 04:59 (100 mg Hospi ta 100 MG 00 :00 total) by l capsule mouth 2 (two) times a day for 7 days. acetaminoph 2022-0 2022- No [id number] 1{tbl} Q8H Take 1 Methodi en-codeine 05-[address] (TYLENOL 00:00: 04:59 mouth Hospita WITH 00 :00 every 8 l CODEINE #3) (eight) 300-30 mg hours as per tablet needed for moderate pain for up to 4 days .acute pain. acetaminoph 2022-0 2022- No 1{tbl} Q8H Take 1 Methodi en-codeine 05-[address] (TYLENOL 00:00: 04:59 mouth Hospita WITH 00 :00 every 8 l CODEINE #3) (eight) 300-30 mg hours as per tablet needed for moderate pain for up to 4 days .acute pain. lisinopriL 2022-0 2022- No 40mg QD Take 1 Meth suzanne (PRINIVIL) 03-26-12 tablet (40 st 40 mg 00:00: 00:00 mg total) Hospit a tablet 00 :00 by mouth l daily. lisinopriL 2022-0 2022- No 40mg QD Take 1 Meth suzanne (PRINIVIL) 03-26-12 tablet (40 st 40 mg 00:00: 00:00 mg total) Hospit a tablet 00 :00 by mouth l daily. Dialyvite 2023-0 Yes 1{tbl} QD Take 1 Meth suzanne 800-Ultra D 5-[address] 0.8-2,000 00:00: mouth Hospita mg-unit 00 daily. l tablet Dialyvite 2023-0 Yes 1{tbl} QD Take 1 Meth suzanne 800-Ultra D 5-[address] 0.8-2,000 00:00: mouth Hospita mg-unit 00 daily. l tablet sevelamer 2023-0 Yes 800mg [id number] Take 1 Methodi (RENVELA) 3-[id number] 800 mg 00:00: 3D (800 mg Hospita tablet 00 total) by l mouth 3 (three) times a day with meals. carvediloL 2023-0 Yes 12.5mg Q.5D Take 1 Met hodi (COREG) 3-[address] 12.5 MG 00:00: (12.5 mg Hospit a tablet 00 total) by l mouth 2 (two) times a day. amLODIPine 2023-0 Yes 10mg QD Take 1 Metho di (NORVASC) 3-24 tablet (10 st 10 mg 00:00: mg total) Hospita tablet 00 by mouth l daily. sevelamer 2023-0 Yes 800mg [id number] Take 1 Methodi (RENVELA) 3-[id number] 800 mg 00:00: 3D (800 mg Hospita tablet 00 total) by l mouth 3 (three) times a day with meals. carvediloL 2023-0 Yes 12.5mg Q.5D Take 1 Met hodi (COREG) 3-[address] 12.5 MG 00:00: (12.5 mg Hospit a tablet 00 total) by l mouth 2 (two) times a day. amLODIPine 2023-0 Yes 10mg QD Take 1 Metho di (NORVASC) 3-24 tablet (10 st 10 mg 00:00: mg total) Hospita tablet 00 by mouth l daily. calcitrioL 2023-0 Yes .5ug Q2D Take 2 Metho di (ROCALTROL) 2-[address] 0.25 MCG 00:00: (0.5 mcg Hospi ta capsule 00 total) by l mouth every other day. With Dialysis calcitrioL 2023-0 Yes .5ug Q2D Take 2 Metho di (ROCALTROL) 2-[address] 0.25 MCG 00:00: (0.5 mcg Hospi ta capsule 00 total) by l mouth every other day. With Dialysis Vital Signs Vital Name Observation Time Observation Value Comments Source Systolic blood 2023-06-19 17:50:00 130 mm[Hg] Univer sity [facility] Diastolic blood 2023-06-19 17:50:00 84 mm[Hg] Unive [facility] [place] Heart rate 2023-06-19 17:50:00 73 /min [facility] Oxygen saturation in 2023-06-19 17:50:00 100 /min [facility] Arterial blood by [facility] [place] Pulse oximetry [place] Body temperature 2023-06-19 17:49:00 36 Chitra [facility] Body height 2023-06-19 17:49:00 177.8 cm [facility] Body weight 2023-06-19 17:49:00 100.245 kg [facility] BMI 2023-06-19 17:49:00 31.71 kg/m2 [facility] Systolic blood 2023-07-19 15:00:00 120 mm[Hg] [facility] pressure Diastolic blood 2023-07-19 15:00:00 70 mm[Hg] [facility] pressure Heart rate 2023-07-19 15:00:00 53 /min [facility] Respiratory rate 2023-07-19 15:00:00 14 /min [facility] Oxygen saturation in 2023-07-19 15:00:00 100 /min [facility] Arterial blood by Pulse oximetry Body temperature 2023-07-19 14:15:00 35.83 Chitra [facility] Body height 2023-07-19 11:16:00 182.9 cm [facility] Body weight 2023-07-19 11:16:00 97.977 kg [facility] BMI 2023-07-19 11:16:00 29.29 kg/m2 [facility] Procedures Procedure Date / Time Performing Clinician Source Performed BASIC METABOLIC PANEL 2023-07-19 12:50:00 [facility] E. ESTIMATED GFR 2023-07-19 12:50:00 [facility] E. DE AN ELECTIVE 2023-07-19 12:39:00 Maria Teresa Aguirre Ho spital ENDOTRACHEAL AIRWAY LAPAROSCOPIC REMOVAL OR 2023-07-19 12:30:00 [facility] REPOSITIONING OF E. PERITONEAL DIALYSIS CATHETER ESTIMATED GFR 2023-07-19 11:45:00 [facility] E. POC PANEL 2023-07-19 11:45:00 [facility] E. ESTIMATED GFR 2023-07-19 11:03:00 Brandie Currie ospital PARTIAL THROMBOPLASTIN 2023-07-17 16:18:[address] [facility] TIME (PTT) CBC WITH PLATELET AND 2023-07-17 16:18:00 [facility] DIFFERENTIAL HEMOGLOBIN A1C 2023-07-17 16:18:00 [facility] Center, [facility] PROTHROMBIN TIME WITH INR 2023-07-17 16:18:00 [facility] TRANSTHORACIC ECHO (TTE) 2023-06-19 17:05:00 Meet Valdovinos [facility] CBC WITH DIFF 2023-06-19 14:59:00 Meet Valdovinos [facility] XR CHEST 2 VW 2023-06-19 14:21:31 Meet Valdovinos [facility] ASSIGNMENT OF BENEFITS 2023-06-19 12:33:19 Doctor Unassigned, Un [facility] [place] [facility] DE AN ELECTIVE 2023-05-17 13:41:00 Yola Christie [facility] ENDOTRACHEAL AIRWAY INSERTION, CATHETER, 2023-05-17 13:33:00 [facility] DIALYSIS, PERITONEAL, E. LAPAROSCOPIC ESTIMATED GFR 2023-05-17 12:26:00 [facility] E. POC PANEL 2023-05-17 12:26:00 [facility] E. ESTIMATED GFR 2023-05-17 12:09[facility]00 [facility] WITH PLATELET AND 2023-05-11 16:30:00 [facility] DIFFERENTIAL HEMOGLOBIN A1C 2023-05-11 16:30:00 [facility], Brandievandana Wolfe ospital PROTHROMBIN TIME WITH INR 2023-05-11 16:30:00 [facility] PARTIAL THROMBOPLASTIN 2023-05-11 16:30:[address] [facility] TIME (PTT) ECG PRE/POST OP 2023-05-11 15:59:47 [facility], Brandie Newby ospital TRANSPLANT/EXT PROVIDER 2023-04-13 05:01:00 Doctor Unassigned, U [facility] CARDIOLOGY TESTING [place] [facility] h TRANSPLANT/EXT PROVIDER 2022-12-27 06:01:00 Doctor Unassigned, Dorothy [facility] LAB/PATHOLOGY [place] [facility] Plan of Care Planned Activity Planned Date Details Comments Source Future Scheduled 2023-08-18 COVID-19 VACCINE (#1) [facility] Test 17:30:53 [code = COVID-19 VACCINE (#1)] Future Scheduled 2023-08-18 Pneumococcal Vaccine: [facility] Test 17:30:53 Pediatrics (0 to 5 Years) and At-Risk Patients (6 to 64 Years) (1 - PCV) [code = Pneumococcal Vaccine: Pediatrics (0 to 5 Years) and At-Risk Patients (6 to 64 Years) (1 - PCV)] Future Scheduled 2023-08-18 Hepatitis C screening [facility] Test 17:30:53 (procedure) [code = 351605414] Future Scheduled 2023-08-18 INFLUENZA VACCINE (#1) [facility] Test 17:30:53 [code = INFLUENZA VACCINE (#1)] Future Scheduled 2023-08-18 RSV VACCINES > 60 YR Met [facility] Test 17:30:53 (1 - 1-dose 60+ series) [code = RSV VACCINES > 60 YR (1 - 1-dose 60+ series)] Future Scheduled 2023-07-19 COVID-19 VACCINE (#1) [facility] Test 06:05:58 [code = COVID-19 VACCINE (#1)] Future Scheduled 2023-07-19 Pneumococcal Vaccine: [facility] Test 06:05:58 Pediatrics (0 to 5 Years) and At-Risk Patients (6 to 64 Years) (1 - PCV) [code = Pneumococcal Vaccine: Pediatrics (0 to 5 Years) and At-Risk Patients (6 to 64 Years) (1 - PCV)] Future Scheduled 2023-07-19 Hepatitis C screening [facility] Test 06:05:58 (procedure) [code = [id number]] Future Scheduled 2023-07-19 INFLUENZA VACCINE (#1) [facility] Test 06:05:58 [code = INFLUENZA VACCINE (#1)] Encounters Start End Encounter Admission Attending Care Care Encounter Source Date/Time Date/Time Type Type Clinicians Facility Department ID 2023-08-08 2023-08-08 Telephone SUZY Villalba 1.2.840.114 [id number] Univers 00:00:00 00:00:00 Bertha Turcios MULTISPEC 350.1.13.10 [place]2.686 [place] [id number] [address] [facility] 2023-07-19 2023-07-19 [facility], 1.2.840.1 [id number] Methodi 05:36:00 10:27:00 Encounter Chaz E. 17846.1.[address] 3.430.2.7 Hospit a .3.774870 l .8 2023-07-19 2023-07-19 [facility], 1.2.840.1 [id number] Methodi 05:36:00 10:27:00 Encounter Chaz E. 46628.1.[address] 3.430.2.7 Hospit a .3.876472 l .8 2023-07-19 2023-07-19 Surgery [facility], 1.2.840.1 [id number] Methodi 07:30:00 09:00:00 Chaz E. 38083.1.1 691 s t 3.430.2.7 Hospit a .3.234075 l .8 2023-07-19 2023-07-19 Surgery [facility], 1.2.840.1 [id number] Methodi 07:30:00 09:00:00 Chaz E. 15863.1.1 691 s t 3.430.2.7 Hospit a .3.369479 l .8 2023-07-19 2023-07-19 Anesthesia Te Montesinos 1.2.840.1 [id number] Methodi 07:26:00 08:39:00 Event Brandie Currie 13005.1.[address] 3.430.2.7 Hospit a .3.707111 l .8 2023-07-19 2023-07-19 Anesthesia Te Montesinos 1.2.840.1 [id number] Methodi 07:26:00 08:39:00 Event Brandie Currie 62741.1.[address] 3.430.2.7 Hospit a .3.007061 l .8 2023-07-17 2023-07-17 Pre-Admiss Oppermann, 1.2.840.1 [id number] Methodi 11:00:00 12:00:00 ion Chaz E. 52664.1.1 930 s t Testing 3.430.2.7 Hospit a .3.302268 l .8 2023-07-17 2023-07-17 Pre-Admiss Opkayamann, 1.2.840.1 [id number] Methodi 11:00:00 12:00:00 ion Chaz E. 92181.1.1 930 s t Testing 3.430.2.7 Hospit a .3.726956 l .8 2023-07-16 2023-07-16 Committee [facility] 1.2.840.114 [id number] Univers 00:00:00 00:00:00 Review Bertha Turcios MULTISPEC 350.1.13.10 ity of IALTY 4.2.7.2.[address] [facility] [id number] [address] [facility] 2023-07-13 2023-07-13 Letter [facility] 1.2.840.114 [id number] Univers 00:00:00 00:00:00 (Out) Bertha Turcios MULTISPEC 350.1.13.10 ity of IALTY 4.2.7.2.[address] [facility] [id number] [address] [facility]IC 2023 2023 Telephone [facility] 1.2.840.114 [id number] Univers 00:00:00 00:00:00 Bertha A MULTISPEC 350.1.13.10 [place] [id number] [facility] [address] [facility] 2023-07-02 2023-07-02 Orders [place], 1.2.840.1 [id number] Methodi 00:00:00 00:00:00 Only Celina P [address]66.1.[address] 3.430.2.7 Hospit a .3.134120 l .8 2023-07-02 2023-07-02 Prep for [place], 1.2.840.1 [id number] Methodi 00:00:00 00:00:00 Surgery Celina P [address]7069.1.[address] 3.430.2.7 Hospit a .3.151066 l .8 2023-07-02 2023-07-02 Orders [place], 1.2.840.1 [id number] Methodi 00:00:00 00:00:00 Only Celina P [address]754.1.[address] 3.430.2.7 Hospit a .3.474933 l .8 2023-07-02 2023-07-02 Prep for [place], 1.2.840.1 [id number] Methodi 00:00:00 00:00:00 Surgery Celina P 60735.1.[address] 3.430.2.7 Hospit a .3.732287 l .8 2023-06-26 2023-06-26 Committee [facility] 1.2.840.114 [id number] Univers 00:00:00 00:00:00 Review Bertha Turcios MULTISPEC 350.1.13.10 ity of IALTY 4.2.7.2.686 [facility] [id number] [facility] ELAINE [address] [facility] 2023-06-26 2023-06-26 Telephone [facility] 1.2.840.114 [id number] Univers 00:00:00 00:00:00 Bertha A MULTISPEC 350.1.13.10 ity of IALTY 4.2.7.2.686 [facility] [id number] [address] [facility] 2023-06-26 2023-06-26 [facility] 1.2.840.114 [id number] Univers 00:00:00 00:00:00 (Out) Bertha Turcios MULTISPEC 350.1.13.10 ity of IALTY 4.2.7.2.686 [facility] [place] [id number] [address] [facility] 2023-06-26 2023-06-26 Case [facility] 1.2.840.114 [id number] Univers 00:00:00 00:00:00 Management Stone A MULTISPEC 350.1.13.10 ity of IALTY 4.2.7.2.686 [facility] [place] [id number] [address] [facility] 2023-06-25 2023-06-25 [facility] 1.2.840.114 [id number] Univers 00:00:00 00:00:00 Management Jaciel MULTISPEC 350.1.13.10 ity of IALTY 4.2.7.2.686 [facility] [place] [id number] [facility] [address] [facility] 2023-06-25 2023-06-25 Committee [facility] 1.2.840.114 [id number] Univers 00:00:00 00:00:00 Review Bertha A MULTISPEC 350.1.13.10 ity of IALTY 4.2.7.2.686 [facility] [place] [id number] [address] [facility]IC 2023-06-19 2023-06-19 [facility] 1.2.413.331 [id number] Univers 09:15:24 23:59:00 Encounter Meet [facility] HEALTH 350.1.13.10 ity of [place] 4.2.7.2.686 [facility] [id number] [address] ([facility]) 2023-06-19 2023-06-19 Office Scarlet Juares [facility] 1.2.840 .114 [id number] Univers 16:00:00 16:00:00 Visit Orly Stone A MULTISPEC 350.1.13 .10 [place] [id number] [facility] [address] [facility] 2023-06-19 2023-06-19 Dining Car Steward, Transplant Social [facility] 1.2.840.114 [id number] Univers 14:00:00 15:53:43 Management Orly Bertha Turcios MULTISPEC 350.1 .13.10 [place] [id number] [address] [facility]ES CLINIC 2023-06-19 2023-06-19 Outpatient R ORLY [facility] [id number] Univers 16:00:00 15:53:17 BERTHA ity o f [facility] 2023-06-19 2023-06-19 Office Kate Torres [facility] 1.2 .840.114 [id number] Univers 13:00:00 15:53:03 Visit Bertha Villalba MULTISPEC 350.1.13 .10 [place] [id number] [facility] [address] [facility] 2023-06-19 2023-06-19 Developmental Services Worker Developmental Services Worker, Transplant [facility] 1. 2.840.114 [id number] Univers 15:00:00 15:45:00 Visit Bertha Villalba MULTISPEC 350.1.13 .10 [place]2.[place] [id number] [facility] [address] [facility]IC 2023-06-19 2023-06-19 Yeast Culture [facility], [facility] Transplant [facility] 1. 2.840.114 [id number] Univers 09:30:00 09:45:00 Visit Meet Valdovinos SPECIALTY 350.1.13. 10 [place] C[place]2.[place] [id number] Ms vika SULLIVAN [address] [place] [address] 2023-06-19 2023-06-19 [facility] 1.2.517.409 [id number] Univers 09:15:00 09:15:00 Encounter Meet [place] SPECIALTY 350.1.13.10 ity [place]2.[place] [id number] Ms vika SULLIVAN [address] [facility] 2023-06-19 2023-06-19 [facility] 1.2.912.373 [id number] Univers 08:29:52 09:14:00 Encounter Meet [place] SPECIALTY 350.1.13.10 it[place]7.2.[place] [id number] Ms vika SULLIVAN [address] [facility] 2023-06-19 2023-06-19 Nurse Renal, Transplant Class [facility] 1. 2.840.114 [id number] Univers 08:00:00 08:45:00 Visit Bertha Villalba MULTISPEC 350.1.13 .10 [place]2.[place] [id number] [facility] [address] [facility] 2023-06-19 2023-06-19 Orders Doctor VEENA 1.2.840.114 [id number] Univers 00:00:00 00:00:00 Only Unassigned, ZEYAD 350.1.13.10 ity of [place] [facility] 4.2.7.2.686 Bertrand as [id number] [facility] [address] 2023-06-18 2023-06-18 Patient Doctor VEENA 1.2.840.114 [id number] Univers 00:00:00 00:00:00 Secure Msg Unassigned, ZEYAD 350.1.13.10 ity of [place] [facility] 4.2.7.2.686 Bertrand as [id number] [facility] [address] 2023-05-17 2023-05-17 Hospital Araceli, Amber2.840.1 [id number] Methodi 06:39:00 11:35:00 Encounter Chaz Medina 46438.1.[address] 3.430.2.7 Hospit a .3.590372 l .8 2023-05-17 2023-05-17 [facility], 1.2.840.1 [id number] Methodi 06:39:00 11:35:00 Encounter Chaz Aceves. 70125.1.[address] 3.430.2.7 Hospit a .3.636632 l .8 2023-05-17 2023-05-17 Surgery [facility], 1.2.840.1 [id number] Methodi 08:30:00 10:05:00 Chaz E. 30375.1.1 994 s t 3.430.2.7 Hospit a .3.506804 l .8 2023-05-17 2023-05-17 Surgery [facility], 1.2.840.1 [id number] Methodi 08:30:00 10:05:00 Chaz E. 53236.1.1 994 s t 3.430.2.7 Hospit a .3.252383 l .8 2023-05-17 2023-05-17 Anesthesia Fady Amarilis 1.2.840.1 [id number] 001 [id number] Methodi 08:28:00 10:05:00 Event Chadd Curriee 02701.1.[address] 3.430.2.7 Hospit a .3.985072 l .8 2023-05-17 2023-05-17 Anesthesia Fady Amarilis 1.2.840.1 [id number] Methodi 08:28:00 10:05:00 Event Chadd Curriee 84093.1.[address] 3.430.2.7 Hospit a .3.374086 l .8 2023-05-11 2023-05-11 Pre-Admiss [facility], 1.2.840.1 [id number] Methodi 10:30:00 11:30:00 ion Chaz Aceves. 67690.1.1 081 s t Testing 3.430.2.7 Hospit a .3.161180 l .8 2023-05-11 2023-05-11 Pre-Admiss [facility], 1.2.840.1 [id number] Methodi 10:30:00 11:30:00 ion Chaz Medina 17746.1.1 081 s t Testing 3.430.2.7 Hospit a .3.090185 l .8 2023-04-17 2023-04-17 Office [facility], 1.2.840.1 [id number] Methodi 13:45:00 14:28:23 Visit Chaz Medina 34352.1.1 731 s t 3.430.2.7 Hospit a .3.768104 l .8 2023-04-17 2023-04-17 Office [facility], 1.2.840.1 [id number] Methodi 13:45:00 14:28:23 Visit Chaz Medina 90384.1.1 731 s t 3.430.2.7 Hospit a .3.575021 l .8 2023-04-17 2023-04-17 Orders [place], 1.2.840.1 [id number] Methodi 00:00:00 00:00:00 Only Celina P [address]752.1.[address] 3.430.2.7 Hospit a .3.371830 l .8 2023-04-17 2023-04-17 Prep for [place], 1.2.840.1 [id number] Methodi 00:00:00 00:00:00 Surgery Celina P [address]183.1.[address] 3.430.2.7 Hospit a .3.740938 l .8 2023-04-17 2023-04-17 Orders [place], 1.2.840.1 [id number] Methodi 00:00:00 00:00:00 Only Celina P [address]00.1.[address] 3.430.2.7 Hospit a .3.505704 l .8 2023-04-17 2023-04-17 Prep for [place], 1.2.840.1 [id number] Methodi 00:00:00 00:00:00 Surgery Celina P [address]4624.1.[address] 3.430.2.7 Hospit a .3.816271 l .8 2023-04-13 2023-04-13 Orders Doctor VEENA 1.2.840.114 [id number] Univers 00:00:00 00:00:00 Only Unassigned, ZEYAD 350.1.13.10 ity of [place] [facility] 4.2.7.2.686 Bertrand as [phone] [place] [address] [address] 2022-12-27 2022-12-27 Orders Doctor VEENA 1.2.840.114 [id number] Univers 00:00:00 00:00:00 Only Unassigned, ZEYAD 350.1.13.10 ity of [place] [facility] 4.2.7.2.686 Bert[place] as [id number] [place] [address] Branch Results Test Description Test Time Test Comments Results Result Comments Source POC panel 2023-07-19 11:48:00 Test Item Value Reference Range Interpretation Comme nts POC sodium (test code = 2947-0) 135 mmol/L 135-148 POC potassium (test code = 5.5 mmol/L 3.5-5.0 H 6298-4) POC glucose (test code = 2339-0) 82 mg/dL 65-99 POC creatinine (test code = 12.7 mg/dl 0.7-1.2 H Wood Miller Name: Selvin 07661-0) Valerio I D: 707525 POC hemoglobin (test code = 12.9 g/dL 14.0-18.0 L 718-7) POC hematocrit (test code = 38 % 41-51 L 4544-3) Lab Interpretation (test code = Abnormal 88700-4) [facility] [id number] 11:48:00 Test Item Value Reference Range Interpretation Comments POC sodium (test code 135 mmol/L 135-148 = 2947-0) POC potassium (test 5.5 mmol/L 3.5-5.0 H code = 6298-4) POC glucose (test code 82 mg/dL 65-99 = 2339-0) POC creatinine (test 12.7 mg/dl 0.7-1.2 H Operato r Name: code = 96348-7) Selvin Luo I D: 814373 POC hemoglobin (test 12.9 g/dL 14.0-18.0 L code = 718-7) POC hematocrit (test 38 % 41-51 L code = 4544-3) Lab Interpretation Abnormal (test code = 16007-9) [facility] 17:53:38 Test Item Value Reference Range Interpretation Comments Height (test code = 71 in 4103791318) Weight (test code = 220 lbs 2772075247) Systolic BP (test code = 145 mmHg 9222723568) Diastolic BP (test code 82 mmHg = 3608270169) Heart Rate (test code = 71 bpm 4818983785) LVOT stroke volume (test 108.50 cm3 code = 1893195992) EF(Teich) (test code = 52.00 % 3942523681) LVIDD (test code = 4.50 cm 7284735968) LVIDS (test code = 3.30 cm 1238827414) Left Ventricular End 45.5 mL Systolic Volume by Teichholz Method (test code = 5072017) Left Ventricular End 94.7 mL Diastolic Volume by Teichholz Method (test code = 6012677) IVS (test code = 0.95 cm 8073554399) LVPWD (test code = 1.08 cm 0015402364) LVOT diameter (test code 2.30 cm = 3583298094) LVOT area (test code = 4.20 cm2 2654839924) FS (test code = 27 % 1510640651) MV Peak E Bart (test code 85.7 cm/s = 5843604166) MV Peak A Bart (test code 84.8 cm/s = 8929902645) E/A ratio (test code = 1.01 ratio 2499952604) E wave decelartion time 0.24 s (test code = 2476849141) LA Volume Index (BP) 26.9 mL/m2 (test code = 1774016601) LA volume (BP) (test 59.0 mL code = 1820654906) LVOT peak bart (test code 118.3 cm/s = 0265413676) LVOT mn grad (test code 2.6 mmHg = 1524654336) BSA (test code = 2.20 m2 0223583978) LA size (test code = 3.9 cm 3999238741) LAV(MOD-sp2) (test code 41.00 mL = 8592962464) LAV(MOD-sp4) (test code 66.40 mL = 1937260686) Tapse (test code = 2.49 cm 2742001993) Aortic valve mean 75.3 cm/s velocity (test code = 7206294635) Ao peak bart (test code = 119.4 cm/s 6342660809) Ao VTI (test code = 24.9 cm 7812793211) AV LVOT peak gradient 5.6 mmHg (test code = 2649118347) LVOT peak VTI (test code 26.1 cm = 6092219470) AV area by cont VTI 4.4 cm2 (test code = 5835699807) AV area peak bart (test 4.1 cm2 code = 1072707085) LV V1 mean (test code = 75.60 cm/s 7795736536) Ao max PG (test code = 5.70 mm[Hg] 5997202056) MV Prop V (test code = 44.70 cm/s 4540444868) Ao root diam (test code 3.30 cm = 4828374152) AV peak gradient (test 5.7 mmHg code = 2801058494) AV valve area (test code 4.40 cm2 = 1674961045) AV mean gradient (test 2.7 mmHg code = 1425292947) Aortic root (test code = 3.3 cm 2078315505) Ao root annulus (test 3.3 cm code = 3129244263) PW (test code = 1.08 cm 0.6-1.4 5366626523) EF - 2D (test code = 52.00 % 99522968) Interventricular Septum 0.95 cm Diastolic Thickness by 2D (test code = 2187909) Radiology Study observation (narrative) (test code = 64142-4) JESSICA (test code = JESSICA) ?Left?Ventricle: Left ventricle size is normal. Normal wall thickness. There is concentric remodeling with LVMI 65 g/m2 and RWT 0.46. Septal motion is normal. . No regional wall motion abnormalities. Normal systolic function with a visually estimated EF of 55 - 60%. Normal diastolic function. ?Right?Ventricle: Right ventricle size is normal. Normal systolic function. ?Left?Atrium: Left atrium size is normal. Left atrium volume index is 26.9 mL/m2. ?Tricuspid?Valve: Trace transvalvular regurgitation. Insufficient tricuspid regurgitation jet to estimate RVSP . Left VentricleLeft ventricle size is normal. Normal wall thickness. There is concentric remodeling with LVMI 65 g/m2 and RWT 0.46. Septal motion is normal. . No regional wall motion abnormalities. Normal systolic function with a visually estimated EF of 55 - 60%. Normal diastolic function. There is a false chord.Right VentricleRight ventricle size is normal. Normal systolic function.Left AtriumLeft atrium size is normal. Left atrium volume index is 26.9 mL/m2.Right AtriumRight atrium size is normal.IVC/SVCIVC diameter is less than or equal to 21 mm and decreases greater than 50% during inspiration; therefore the estimated right atrial pressure is normal (~0-5 mmHg). IVC normal in size and respiratory variation.Mitral ValveMitral valve structure is normal. Trace transvalvular regurgitation. No stenosis.Tricuspid ValveTricuspid valve structure is normal. Trace transvalvular regurgitation. Insufficient tricuspid regurgitation jet to estimate RVSP . No stenosis.Aortic ValveTricuspid. Trace transvalvular regurgitation. No hemodynamically significant .Pulmonic ValveNot well visualized. Trace transvalvular regurgitation. No stenosis.Ascending AortaNormal sized aortic root.PericardiumThe pericardium is normal. No pericardial effusion.Study DetailsStudy quality was adequate. A complete echocardiogram was performed using 2D, color flow Doppler and spectral Doppler. The apical, parasternal and subcostal views were obtained. Patient exhibited sinus rhythm. [facility] Pre/Post [id number] 19:14:59 Test Item Value Reference Range Interpretation Comments Ventricular rate 55 (test code = 253) Atrial rate (test 55 code = 255) DE interval (test 146 code = 266) QRSD interval (test 88 code = 260) QT interval (test 442 code = 264) QTC interval (test 422 code = 265) P axis 1 (test code = 62 267) QRS axis 1 (test code -5 = 268) T wave axis (test 23 code = 270) EKG impression (test Sinus code = 273) bradycardia-Moderate voltage criteria for LVH, may be normal variant-Borderline ECG-No previous ECGs available[facility] [id number] 19:14:59 Test Item Value Reference Range Interpretation Comments Ventricular rate 55 (test code = 253) Atrial rate (test 55 code = 255) DE interval (test 146 code = 266) QRSD interval (test 88 code = 260) QT interval (test 442 code = 264) QTC interval (test 422 code = 265) P axis 1 (test code = 62 267) QRS axis 1 (test code -5 = 268) T wave axis (test 23 code = 270) EKG impression (test Sinus code = 273) bradycardia-Moderate voltage criteria for LVH, may be normal variant-Borderline ECG-No previous ECGs available- [facility]
[2023-08-18 19:02] LABS: Absolute Lymphocytes (CBC) 1.6 K/uL (0.7-4.9); Hematocrit 25.4 % (39.6-49.0); Lymphocytes % 19.4 % (15.3-44.8); MCV 85.8 fL (80-100); MPV 6.9 fL (7.6-11.3); Platelets 336 thou/uL (152-406); RBC Red Blood Cell Count 2.96 M/uL (4.33-5.43)
[2023-08-18 19:05] LABS: Protime INR 1.05
--- NOTE | 2023-08-18 19:14 | RAD REPORT ---
EXAM DESCRIPTION: Sylvie Single View08/18/2023 6:59 pm CLINICAL HISTORY: Chest pain COMPARISON: August 14, 2023 FINDINGS: The lungs appear clear of acute infiltrate. The heart is normal size IMPRESSION: No acute abnormalities displayed
[2023-08-18 19:17] LABS: Albumin 2.9 g/dL (3.4-5.0); Bilirubin Total 0.4 mg/dL (0.2-1.0); Potassium 4.2 mEq/L (3.5-5.1); Protein, Total 7.4 g/dL (6.4-8.2); Troponin High Sensitivity 54.1 pg/mL (<58.9)
--- NOTE | 2023-08-18 20:15 | RAD REPORT ---
EXAM DESCRIPTION: CT - Thorax Wo Con - 08/18/2023 7:47 pm CLINICAL HISTORY: Chest pain COMPARISON: none TECHNIQUE: Computed axial tomography of the chest was obtained. Contrast was not requested. All CT scans are performed using dose optimization technique as appropriate and may include automated exposure control or mA/KV adjustment according to patient size. FINDINGS: The evaluation of mediastinum, dio and vessels is limited secondary to lack of IV contras t administration. A 6 millimeter partially calcified lingular nodule. Right lung is clear No mediastinal or hilar lymphadenopathy is seen. A pleural effusion is not present. No pericardial effusion. Mild cardiomegaly. Central venous catheter in place IMPRESSION: 6 millimeter partially calcified lingular nodule probably benign. Followup CT chest in 6 months recommended
[2023-08-18] MEDS ORDERED: ASPIRIN 81 MG CHEWABLE TABLET ONE (20:18)
[2023-08-18] MEDS ORDERED: ACETAMINOPHEN 500 MG TAB ONE (20:18)
--- NOTE | 2023-08-18 21:21 | ER ---
Nurse's Notes [facility] Name: Connor Velázquez Age: 38 yrs Sex: Male : 1985 Arrival Date: 08/18/2023 Time: 17:27 Bed 20 Private MD: Diagnosis: Chest pain, unspecified Presentation: 08/18 17:36 Chief complaint: Patient states: Chest pain on/off since 1pm today. Onset while nj1 watching tv, radiating to left shoulder and left upper back. Does daily peritoneal dialysis at home. Coronavirus screen: Vaccine status: Patient reports being unvaccinated. Ebola Screen: Patient denies travel to an Ebola-affected area in the 21 days before illness onset. Initial Sepsis Screen: Does the patient meet any 2 criteria? HR > 90 bpm. No. Patient's initial sepsis screen is negative. Does the patient have a suspected source of infection? No. Patient's initial sepsis screen is negative. Risk Assessment: Do you want to hurt yourself or someone else? Patient reports no desire to harm self or others. Onset of symptoms was August 18, 2023 at 13:00. 17:36 Method Of Arrival: Ambulatory [facility] 17:36 Acuity: EDGARDO 2 nj1 Historical: - Allergies: 17:39 No Known Allergies; nj1 - PMHx: 17:39 PERITONEAL DIALYSIS; Hypertensive disorder; Congestive heart failure; nj1 - PSHx: 17:39 Cholecystectomy; nj1 - Immunization history:: Client reports having NOT received the Covid vaccine. - Social history:: Smoking status: Patient denies any tobacco usage or history of. Screenin:48 [facility] ED Fall Risk Assessment (Adult) History of falling in the last 3 months, cp4 including since admission No falls in past 3 months (0 pts) Confusion or Disorientation No (0 pts) Intoxicated or Sedated No (0 pts) Impaired Gait No (0 pts) Mobility Assist Device Used No (0 pt) Altered Elimination No (0 pt) Score/Fall Risk Level 0 - 2 = Low Risk Oriented to surroundings, Maintained a safe environment, Educated pt \T\ family on fall prevention, incl call for assistance when getting out of bed, Hourly rounding (assess needs \T\ fall precautionary measures) done. Abuse screen: Denies threats or abuse. Nutritional screening: No deficits noted. Tuberculosis screening: No symptoms or risk factors identified. Assessment: 18:48 Pain: Complains of pain in chest Pain radiates to back and left arm Pain began cp4 gradually. Cardiovascular: Reports chest pain, shortness of breath. 19:27 General: Appears comfortable, Behavior is calm, cooperative. Pain: Denies pain. Neuro: ha1 Level of Consciousness is awake, alert, obeys commands, Oriented to person, place, time, situation. Cardiovascular: Denies chest pain, Heart tones S1 S2 present. Respiratory: Airway is patent Respiratory effort is even, unlabored, Respiratory pattern is regular, symmetrical. GI: Abdomen is round non-distended. Derm: Skin is moist, Skin is normal. Musculoskeletal: Circulation, motion, and sensation intact. Range of motion: intact in all extremities. 20:30 Reassessment: Patient and/or family updated on plan of care and expected duration. Pain ha1 level reassessed. Patient is alert, oriented x 3, equal unlabored respirations, skin warm/dry/pink. Patient denies pain at this time. Patient states feeling better. Patient states symptoms have improved. 21:30 Reassessment: Patient and/or family updated on plan of care and expected duration. Pain ha1 level reassessed. Patient is alert, oriented x 3, equal unlabored respirations, skin warm/dry/pink. 22:00 Reassessment: report given to BLAYNE Jaffe. [facility] Vital Signs: 17:36 BP 159 / 103; Pulse 103; Resp 18; Temp 100.2(O); Pulse Ox 100% ; Weight 97.98 kg; nj1 Height 6 ft. 0 in. ; Pain 1/10; 19:30 BP 162 / 102; Pulse 95; Resp 18 S; Pulse Ox 100% on R/A; ha1 20:10 Temp 99(O); ha1 20:30 BP 161 / 105; Pulse 96; Resp 18 S; Pulse Ox 100% on R/A; ha1 21:30 BP 148 / 99; Pulse 88; Resp 17; Pulse Ox 97% on R/A; ha1 22:01 Temp 98.1; ha1 17:36 Body Mass Index 29.29 (97.98 kg, 182.88 cm) [facility] 17:36 Pain Scale: Adult [facility] ED Course: 17:31 Patient arrived in ED. im 17:39 Triage completed. nj1 17:39 Arm band placed on left wrist. nj1 17:49 Jean Calvillo PA is PHCP. cp 17:49 Jac Steven MD is Attending Physician. cp 18:40 Hali Perez is Primary Nurse. cp4 18:40 Troponin High Sensitivity Sent. cp4 18:40 COVID-19 SARS RT PCR Sent. cp4 18:40 Influenza Screen (a \T\ B) Sent. cp4 18:41 Blood Culture Adult (2) Sent. cp4 18:41 CBC with Diff Sent. cp4 18:41 CMP Sent. cp4 18:41 Lactate w/ 2H reflex if indic. Sent. cp4 18:41 Protime (+inr) Sent. cp4 18:41 Ptt, Activated Sent. cp4 18:48 Placed in gown. Bed in low position. Call light in reach. Side rails up X 1. Client cp4 placed on continuous cardiac and pulse oximetry monitoring. NIBP monitoring applied. 18:48 Inserted saline lock: 20 gauge in left antecubital area, using aseptic technique. Blood cp4 collected. 18:48 Patient maintains SpO2 saturation greater than 95% on room air. cp4 19:01 Chest Single View XRAY In Process Unspecified. EDMS 19:48 CT Chest Wo Con In Process Unspecified. EDMS 21:00 Provided Education on: need for admit . ha1 21:10 No provider procedures requiring assistance completed. ha1 21:20 Roge Beard FNP-C is Hospitalizing Provider. cp 22:41 Patient admitted, IV remains in place. ha1 Administered Medications: 20:09 Drug: Acetaminophen PO 1000 mg PO once Route: PO; ha1 21:54 Follow up: Response: No adverse reaction ha1 20:09 Drug: Aspirin PO Chewable Tablet 324 mg PO once; 81 mg tablets x 4 Route: PO; ha1 21:54 Follow up: Response: No adverse reaction ha1 21:35 Drug: Rocephin IV 2 grams IV at calculated rate once; Given slow IV push per pharmarcy ha1 instructions Route: IV; Rate: calculated rate; Site: left antecubital; 22:40 Follow up: Response: No adverse reaction; IV Status: Completed infusion ha1 Medication: 18:48 VIS not applicable for this client. cp4 Outcome: 21:20 Decision to Hospitalize by Provider. cp 22:40 Condition: stable ha1 22:41 Admitted to Med/surg accompanied by nurse, via wheelchair, room 213, with chart, ha1 22:41 Discharge instructions given to patient, family, Instructed on the need for admit, Demonstrated understanding of instructions, 22:42 Patient left the ED. ha1 Signatures: Dispatcher [employer] EDMS Jean Calvillo PA PA cp Ayala, Heidy, RN RN ha1 Darcie Iqbal RN RN nj1 Elva Kaba Christina cp4
--- NOTE | 2023-08-18 21:21 | EDPHYS ---
Physician Documentation [facility] Name: Connor Velázquez Age: 38 yrs Sex: Male : 1985 Arrival Date: 08/18/2023 Time: 17:27 Bed 20 Private MD: ED Physician Jac Steven HPI: 08/18 18:00 This 38 yrs old Black Male presents to ER via Ambulatory with complaints of Chest Pain, cp Shoulder Pain - left, upper back pain. 18:00 The patient or guardian reports chest pain that is located primarily in the anterior cp chest wall, left. Onset: today, about 1 pm. Pain started while sitting on couch watching TV. Associated signs and symptoms: Pertinent positives: low grade fever, Pertinent negatives: abdominal pain, cough, vomiting. The chest pain is described as intermittent, sharp. 18:00 Severity of pain: in the emergency department the pain has improved moderately. cp 18:00 The pain radiates to the left shoulder, left neck, left back. cp Historical: - Allergies: 17:39 No Known Allergies; nj1 - PMHx: 17:39 PERITONEAL DIALYSIS; Hypertensive disorder; Congestive heart failure; nj1 - PSHx: 17:39 Cholecystectomy; nj1 - Immunization history:: Client reports having NOT received the Covid vaccine. - Social history:: Smoking status: Patient denies any tobacco usage or history of. ROS: 18:05 Constitutional: Negative for body aches, poor PO intake, cp 18:05 Eyes: Negative for injury, pain, redness, and discharge, cp 18:05 ENT: Negative for drainage from ear(s), ear pain, sore throat, difficulty swallowing, difficulty handling secretions, 18:05 Cardiovascular: Positive for chest pain, 18:05 Respiratory: Negative for cough, shortness of breath, wheezing, 18:05 Abdomen/GI: Negative for abdominal pain, nausea, vomiting, and diarrhea, 18:05 Neuro: Negative for altered mental status, dizziness, headache, syncope, weakness, 18:05 All other systems are negative, Exam: 17:55 ECG was reviewed by the Attending Physician. cp 18:10 Constitutional: The patient appears in no acute distress, alert, awake, cp non-diaphoretic, non-toxic, well developed, well nourished, 18:10 Head/Face: Normocephalic, atraumatic. cp 18:10 Eyes: Periorbital structures: appear normal, Conjunctiva: normal, no exudate, no injection, Sclera: no appreciated abnormality, Lids and lashes: appear normal, bilaterally, 18:10 ENT: External ear(s): are unremarkable, Nose: is normal, Mouth: Lips: moist, Oral mucosa: pink and intact, moist, Posterior pharynx: is normal, airway is patent, no erythema, no exudate, 18:10 Neck: ROM/movement: is normal, is supple, without pain, no range of motions limitations, 18:10 Chest/axilla: Inspection: dialysis catheter right upper chest, Palpation: crepitus, is not appreciated, tenderness, is not appreciated, 18:10 Cardiovascular: Rate: tachycardic, Rhythm: regular, 18:10 Respiratory: the patient does not display signs of respiratory distress, Respirations: normal, no use of accessory muscles, no retractions, labored breathing, is not present, Breath sounds: are clear throughout, no decreased breath sounds, no stridor, no wheezing, 18:10 Abdomen/GI: Inspection: distension, is not seen, Bowel sounds: active, all quadrants, Palpation: abdomen is soft and non-tender, in all quadrants, 18:10 Back: pain, is absent, ROM is normal, 18:10 Skin: no rash present. 18:10 Neuro: Orientation: to person, place \T\ time. Mentation: is normal, Vital Signs: 17:36 BP 159 / 103; Pulse 103; Resp 18; Temp 100.2(O); Pulse Ox 100% ; Weight 97.98 kg; nj1 Height 6 ft. 0 in. ; Pain 1/10; 19:30 BP 162 / 102; Pulse 95; Resp 18 S; Pulse Ox 100% on R/A; ha1 20:10 Temp 99(O); ha1 20:30 BP 161 / 105; Pulse 96; Resp 18 S; Pulse Ox 100% on R/A; ha1 21:30 BP 148 / 99; Pulse 88; Resp 17; Pulse Ox 97% on R/A; ha1 22:01 Temp 98.1; ha1 17:36 Body Mass Index 29.29 (97.98 kg, 182.88 cm) [facility] 17:36 Pain Scale: Adult nj1 MDM: 17:49 Patient medically screened. cp 20:35 The patient was given aspirin in the Emergency Department. Data reviewed: vital signs, cp nurses notes, lab test result(s), EKG, radiologic studies, CT scan, plain films. 20:35 Differential diagnosis: acute myocardial infarction, acute pericarditis, pericarditis, cp pleurisy, pneumonia, pneumothorax. Consideration of Admission/Observation Patient was admitted/placed on observation. Management of patient was discussed with the following: Hospitalist: Roge Beard, ESOL INSTRUCTOR will admit after discussion. Independent interpretation of the following test(s) in the Emergency Department EKG: See my EKG interpretation above. Care significantly affected by the following chronic conditions: Chronic Kidney Disease. Counseling: I had a detailed discussion with the patient and/or guardian regarding the historical points, exam findings, and any diagnostic results supporting the discharge/admit diagnosis, lab results, radiology results. 08/18 17:56 Order name: Blood Culture Adult (2) cp 08/18 17:56 Order name: CBC with Diff; Complete Time: 19:31 cp 08/18 19:31 Interpretation: Normal except: RBC 2.96; HGB 8.5; HCT 25.4; RDW 17.5; MPV 6.9; MN% cp 15.1; EOSINOPHIL % 5.2. 08/18 17:56 Order name: CMP; Complete Time: 19:31 cp 08/18 19:31 Interpretation: Normal except: NA 135; BUN 62; CRE 17.10; GFR 3; AST 12; ALB 2.9; GLOB cp 4.5; A/G 0.6. 08/18 17:56 Order name: Lactate w/ 2H reflex if indic.; Complete Time: 19:31 cp 08/18 17:56 Order name: Protime (+inr); Complete Time: 19:31 cp 08/18 17:56 Order name: Ptt, Activated; Complete Time: 19:31 cp 08/18 17:56 Order name: Urinalysis w/ reflexes cp 08/18 17:56 Order name: Influenza Screen (a \T\ B); Complete Time: 19:57 cp 08/18 17:56 Order name: COVID-19 SARS RT PCR; Complete Time: 19:31 cp 08/18 17:56 Order name: Troponin High Sensitivity; Complete Time: 19:31 cp 08/18 19:31 Interpretation: Abnormal: Troponin HS 54.1. cp 08/18 17:56 Order name: Chest Single View XRAY; Complete Time: 19:31 cp 08/18 19:32 Order name: CT Chest Wo Con; Complete Time: 20:31 cp 08/18 17:56 Order name: EKG; Complete Time: 17:57 cp 08/18 17:56 Order name: Accucheck; Complete Time: 18:40 cp 08/18 17:56 Order name: Cardiac monitoring; Complete Time: 18:40 cp 08/18 17:56 Order name: EKG - Nurse/Tech; Complete Time: 17:57 cp 08/18 17:56 Order name: IV Saline Lock - Large Bore; Complete Time: 18:41 cp 08/18 17:56 Order name: Labs collected and sent; Complete Time: 18:41 cp 08/18 17:56 Order name: O2 Per Protocol; Complete Time: 18:41 cp 08/18 17:56 Order name: O2 Sat Monitoring; Complete Time: 18:41 cp 08/18 17:56 Order name: Vital Signs; Complete Time: 18:41 cp EC:55 Rate is 91 beats/min. Rhythm is regular. LA interval is normal. QRS interval is normal. cp QT interval is normal. T waves are Inverted in lead aVR. Interpreted by me. Reviewed by me. Administered Medications: 20:09 Drug: Acetaminophen PO 1000 mg PO once Route: PO; ha1 21:54 Follow up: Response: No adverse reaction ha1 20:09 Drug: Aspirin PO Chewable Tablet 324 mg PO once; 81 mg tablets x 4 Route: PO; ha1 21:54 Follow up: Response: No adverse reaction ha1 21:35 Drug: Rocephin IV 2 grams IV at calculated rate once; Given slow IV push per [employer] ha1 instructions Route: IV; Rate: calculated rate; Site: left antecubital; 22:40 Follow up: Response: No adverse reaction; IV Status: Completed infusion ha1 Disposition: 08/19 08:27 Co-signature as Attending Physician, Jac Steven MD. ec2 Disposition Summary: 08/18/23 21:20 Hospitalization Ordered Notes: Hospitalization Status: Inpatient Admission cp Provider: Roge Beard cp Location: Telemetry/MedSurg (Inpatient) cp Condition: Stable cp Problem: new cp Symptoms: have improved cp Bed/Room Type: Standard cp Room Assignment: 213(08/18/23 21:47) cg Diagnosis - Chest pain, unspecified cp Forms: - Medication Reconciliation Form cp - SBAR form cp - Leadership Thank You Letter cp Signatures: Dispatcher [employer] Roge Herrera FNP-C OPERATIONS OFFICER [employer]-Cla1 Jean Calvillo PA PA cp Garcia, Cindy, RN RN cg Sophie Chan RN RN ha1 Darcie Iqbal RN RN nj1 Jac Steven MD MD ec2 Corrections: (The following items were deleted from the chart) 08/18 21:47 21:20 cp cg
[2023-08-18] MEDS ORDERED: CEFTRIAXONE 2000 MG/VIAL ONE (21:36)
[2023-08-18] MEDS ORDERED: NA CHLORIDE 0.9% 100 ML ONE (21:36)
--- NOTE | 2023-08-18 21:36 | P.HP ---
Certification for Inpatient Patient admitted to: Observation With expected LOS: <2 Midnights Patient will require the following post-hospital care: None Practitioner: I am a practitioner with admitting privileges, knowledge of patient current condition, hospital course, and medical plan of care. Services: Services provided to patient in accordance with Admission requirements found in Title 42 Section 412.3 of the Code of Federal Regulations Patient History Date of Service: 08/18/23 Reason for admission: Chest pain History of Present Illness: 38-year-old male with history of ESRD on PD who also has HD access, hypertension presents to the emergency department with chief complaint of chest pain. He reports this pain began while at rest around 130 this afternoon described as sharp radiating to left arm/shoulder area. Pain has been episodic in nature lasting for 20 to 30 minutes at a time denies shortness of breath or other related symptoms. On arrival to ED patient was noted to have low-grade temperature 100.2. His other labs were significant for white blood cell count 8.2 hemoglobin 8.5 medic at 25.4 sodium 135 BUN 62 creatinine 17.1 GFR 3 lactic acid 0.7 COVID and influenza swabs are negative CT of the chest was performed which revealed 6 mm partially calcified irregular nodule probably benign. Follow-up CT chest in 6 months recommended Allergies No Known Drug Allergies Allergy (Verified 12/19/22 00:13) Unknown Home Medications: Amlodipine [Norvasc*] 10 mg PO DAILY #30 tab 12/27/22 Sevelamer Carbonate [Renvela*] 1,600 mg PO TIDWM #180 tab 12/27/22 carvediloL [Coreg*] 12.5 mg PO BIDWM #60 tab 12/27/22 Calcitrol [Rocaltrol*] 0.25 mcg PO Q48H 08/14/23 Furosemide 1 tab PO DAILY 08/14/23 Losartan Potassium [Cozaar] 1 tab PO DAILY 08/14/23 Vit B Comp C/Folic Acid/Vit D3 [Dialyvite 800 Plus D Wafer] 1 tab PO DAILY 08/14/23 - Past Medical/Surgical History Diabetic: No -: migrains -: CAD -: Hypertension -: Acute on Chronic Decompensated Systolic/Diastolic Congestive Heart Failur -: ESRD on PD -: Cholecystectomy -: finger sx Psychosocial/ Personal History: Patient lives at home with his family. - Family History Mother -: Hypertension Father -: Heart disease - Social History Smoking Status: Never smoker Alcohol use: No CD- Drugs: No Caffeine use: Yes Place of Residence: Home Review of Systems 10-point ROS is otherwise unremarkable Cardiovascular: Chest Pain Physical Examination - Physical Exam General: Alert, In no apparent distress, Oriented x3 HEENT: Atraumatic, PERRLA, Mucous membr. moist/pink, EOMI, Sclerae nonicteric Neck: Supple, 2+ carotid pulse no bruit, No LAD, Without JVD or thyroid abnormality Respiratory: Clear to auscultation bilaterally, Normal air movement Cardiovascular: Regular rate/rhythm, Normal S1 S2 Capillary refill: <2 Seconds Gastrointestinal: Normal bowel sounds, No tenderness Musculoskeletal: No tenderness Integumentary: No rashes Neurological: Normal speech, Normal strength at 5/5 x4 extr, Normal tone, Normal affect - Studies Laboratory Data (last 24 hrs) 08/18/23 08/18/23 08/18/23 18:30 18:30 18:30 WBC 8.20 Hgb 8.5 L Hct 25.4 L Plt Count 336 PT 11.6 INR 1.05 APTT 35.9 Sodium 135 L Potassium 4.2 BUN 62 H Creatinine 17.10 H Glucose 93 Total Bilirubin 0.4 AST 12 L ALT 22 Alkaline Phosphatase 88 Microbiology Data (last 24 hrs): 08/18/23 18:35 Nasopharnyx Influenza Type A Antigen Screen - Final 08/18/23 18:35 Nasopharnyx Influenza Type B Antigen Screen - Final Assessment and Plan - Plan Assessment: Chest pain rule out ACS Low-grade fever ESRD on PD, has HD access Hypertension Plan: Chest pain rule out ACS Given aspirin, monitor on telemetry, trend troponin. Pain-free at this time. Reports last stress test in April-normal has never had a heart catheterization. Low-grade fever Temp 100.2, no leukocytosis noted, CT chest negative for infectious findings, does not make much urine denies urinary symptoms. Negative for COVID/influenza. Given empiric Rocephin in ED, blood cultures were obtained lactic acid less than 2. Will monitor temperature during hospitalization, obtain procalcitonin level. We will hold off on antibiotics at this time given no source of infection identified. Patient does have HD/PD access in place, will need to follow blood cultures. ESRD on PD, has HD access Nephrology consult. Hypertension Continue home medication. DVT PPX:Heparin subcu Code status: Full Discharge Plan: Home Plan to discharge in: 24 Hours - Advance Directives Does patient have a Living Will: No Does patient have a Durable POA for Healthcare: No - Code Status/Comfort Care Code Status Assessed: Yes (Full code) Critical Care: No Time Spent Managing Pts Care (In Minutes): 55
[2023-08-18] MEDS ORDERED: HYDRALAZINE HCL 20 MG/ML VIAL IV PRN (22:10)
[2023-08-18] MEDS ORDERED: VANCOMYCIN 1 GM in NA CHLORIDE 0.9% 250 ML IVPB SCH (22:10)
[2023-08-18] MEDS ORDERED: ONDANSETRON 4 MG/2 ML VIAL IV PRN (22:10)
[2023-08-18 22:43] VITALS: BMI 31.1
[2023-08-18] MEDS ORDERED: VANCOMYCIN 1 GM/VIAL ONE (23:29)
[2023-08-18] MEDS ORDERED: NA CHLORIDE 0.9% 500 ML ONE (23:30)
[2023-08-18] MEDS ORDERED: VANCOMYCIN 2 GM in NA CHLORIDE 0.9% 500 ML IVPB ONE (23:30)
[2023-08-19 03:38] LABS: Absolute Lymphocytes (CBC) 1.4 K/uL (0.7-4.9); Hematocrit 25.5 % (39.6-49.0); MCV 86.2 fL (80-100); MPV 6.8 fL (7.6-11.3); Platelets 315 thou/uL (152-406); RBC Red Blood Cell Count 2.96 M/uL (4.33-5.43)
[2023-08-19 04:00] LABS: Potassium 3.8 mEq/L (3.5-5.1); Troponin High Sensitivity 50.6 pg/mL (<58.9)
[2023-08-19] MEDS: HEPARIN 5000 UNIT/ML 1 ML VIAL SQ SCH ×2 (08:30→21:13)
[2023-08-19] MEDS: ASPIRIN EC 81 MG TAB PO SCH (08:30)
--- NOTE | 2023-08-19 10:08 | P.PN ---
Subjective Date of Service: 08/19/23 Chief Complaint: Chest pain Subjective: Improving (Patient is 38 years of age with end-stage renal disease dialysis at home admitted with new onset of chest pain pain has now resolved) Review of Systems Unremarkable Physical Examination - Vital Signs Temperature: 97.7 F Blood Pressure: 162/90 Pulse: 78 Respirations: 15 Pulse Ox (%): 98 - Physical Exam General: Alert, Oriented x3 Neck: Supple Respiratory: Clear to auscultation bilaterally Cardiovascular: No edema, Normal pulses - Studies Laboratory Data (last 24 hrs) 08/18/23 08/18/23 08/18/23 18:30 18:30 18:30 WBC 8.20 Hgb 8.5 L Hct 25.4 L Plt Count 336 PT 11.6 INR 1.05 APTT 35.9 Sodium 135 L Potassium 4.2 BUN 62 H Creatinine 17.10 H Glucose 93 Total Bilirubin 0.4 AST 12 L ALT 22 Alkaline Phosphatase 88 Microbiology Data (last 24 hrs): 08/18/23 18:35 Nasopharnyx Influenza Type A Antigen Screen - Final 08/18/23 18:35 Nasopharnyx Influenza Type B Antigen Screen - Final Assessment And Plan - Current Problems (Diagnosis) (1) Chest pain Current Visit: Yes Status: Acute Plan: Patient is 38 years of age with end-stage renal disease admitted with chest pain retrosternal radiating to the neck and to the back had a stress test done recently was seen by Dr. Echavarria high sensitive troponin is negative CT scan shows a 6 mm calcified nodule in the lingula probably benign await cardiac consultation patient had a slight fever since admission blood cultures are pending White count is normal anemia of chronic renal disease coronavirus is negative/troponins negative EKG is abnormal Normal sinus rhythm Cannot rule out Anterior infarct, age undetermined Abnormal ECG Compared to ECG 08/14/2023 08:00:47 Myocardial infarct finding now present Qualifiers: Chest pain type: unspecified Qualified Code(s): R07.9 - Chest pain, unspecified
--- NOTE | 2023-08-19 13:29 | P.CNS ---
Date of Consult: 08/19/23 Reason for Consult: esrd Requesting Physician: Kyle De Anda Chief Complaint: Chest pain History of Present Illness: 38M w/ PMHx of ESRD on PD, also has HD access, & hypertension who p/w chest pain, admitted for further eval. He also was noted to have low grade fever 100.2F. he denies abdominal pain, PT catheter insertion site pain, or permacath insertion site pain. He has no leukocytosis. He is negative for Covid and influenza. CT chest showed a 6 mm partially calcified irregular nodule, but otherwise unremarkable. Allergies No Known Drug Allergies Allergy (Verified 12/19/22 00:13) Unknown Home Medications: Amlodipine [Norvasc*] 10 mg PO DAILY #30 tab 12/27/22 Sevelamer Carbonate [Renvela*] 1,600 mg PO TIDWM #180 tab 12/27/22 carvediloL [Coreg*] 12.5 mg PO BIDWM #60 tab 12/27/22 Calcitrol [Rocaltrol*] 0.25 mcg PO Q48H 08/14/23 Furosemide 1 tab PO DAILY 08/14/23 Losartan Potassium [Cozaar] 1 tab PO DAILY 08/14/23 Vit B Comp C/Folic Acid/Vit D3 [Dialyvite 800 Plus D Wafer] 1 tab PO DAILY 08/14/23 - Past Medical/Surgical History Diabetic: No -: migrains -: ESRD-on Peritoneal Dialysis -: Hypertension -: Acute on Chronic Decompensated Systolic/Diastolic Congestive Heart Failur -: ESRD on PD -: Cholecystectomy -: finger sx -: Right Chest Dialysis Access Psychosocial/ Personal History: Patient lives at home with his family. - Family History Mother Medical History: Heart disease, Lung disease, Liver disease Father Medical History: Heart disease Sister Medical History: Hypertension - Social History Alcohol use: No CD- Drugs: No Caffeine use: Yes Place of Residence: Home Review of Systems General: Unremarkable Eyes: Unremarkable ENT: Unremarkable Respiratory: Unremarkable Cardiovascular: Chest Pain Gastrointestinal: Unremarkable Genitourinary: Unremarkable Musculoskeletal: Unremarkable Integumentary: Unremarkable Neurological: Unremarkable Lymphatics: Unremarkable Physical Examination Temp Pulse Resp BP Pulse Ox 97.7 F 78 15 162/90 H 98 08/19/23 10:10 08/19/23 10:10 08/19/23 10:10 08/19/23 10:10 08/19/23 10:10 General: In no apparent distress HEENT: Atraumatic, Normocephalic Neck: Supple Respiratory: Clear to auscultation bilaterally, Other (symmetric chest expansion) Cardiovascular: No rubs, No murmurs, Other (+R permacath in place w/o erythema or tenderness on insertion site) Gastrointestinal: Soft and benign, No guarding, Other (+PD catheter in place w/ insertion site clean/dry) Musculoskeletal: No clubbing, No swelling Integumentary: No warmth Neurological: Normal speech, Normal tone Lymphatics: No axilla or inguinal lymphadenopathy Urinary: Other (no bladder distention) External genitalia: Deferred Rectal: Deferred Laboratory Data (last 24 hrs) 08/18/23 08/18/23 08/18/23 18:30 18:30 18:30 WBC 8.20 Hgb 8.5 L Hct 25.4 L Plt Count 336 PT 11.6 INR 1.05 APTT 35.9 Sodium 135 L Potassium 4.2 BUN 62 H Creatinine 17.10 H Glucose 93 Total Bilirubin 0.4 AST 12 L ALT 22 Alkaline Phosphatase 88 Conclusions/Impression: # ESRD on PD Resume PD tonight Has R permacath Low Phos diet # Chest pain, low grade fever Per other services Received empiric abx F/u BCx Ordered PD fluid cell count, gram stain, culture, though peritonitis is unlikely # Htn Resume home BP meds # Anemia Monitor CBC # Renal osteodystropy Monitor serum Ca & Phos
[2023-08-19] MEDS ORDERED: AMLODIPINE 10 MG TAB PO STA (13:46)
[2023-08-19] MEDS ORDERED: carvediloL 6.25 MG TAB PO STA (13:47)
[2023-08-19] MEDS ORDERED: CEFTRIAXONE 1,000 MG in NA CHLORIDE 0.9% 50 ML IVPB SCH (20:00)
[2023-08-19] MEDS ORDERED: NA CHLORIDE 0.9% 250 ML ONE (20:13)
[2023-08-19 21:57] LABS: Renal Epithelial <5 /HPF (None Seen); Specific Gravity 1.012 (1.005-1.030); Transitional Epithelial <5 /HPF (None Seen); Urine Bacteria None Seen /HPF (<20); Urine Bilirubin NEGATIVE (Negative); Urine Blood Trace (Negative); Urine Clarity Extremely Turbid (Clear); Urine Color Light-Yellow (Yellow); Urine Glucose 2+ (Negative); Urine Protein 3+ (Negative); Urine RBC <5 /HPF (None Seen); Urine Urobilinogen Normal (Normal)
[2023-08-20 03:34] LABS: Absolute Lymphocytes (CBC) 1.7 K/uL (0.7-4.9); Hematocrit 24.6 % (39.6-49.0); Lymphocytes % 21.6 % (15.3-44.8); MCV 85.2 fL (80-100); Platelets 365 thou/uL (152-406); RBC Red Blood Cell Count 2.88 M/uL (4.33-5.43)
[2023-08-20 04:22] LABS: Potassium 3.9 mEq/L (3.5-5.1)
--- NOTE | 2023-08-20 07:06 | P.PN ---
Date of Service: 08/20/23 Subjective: ROS: 10 point ROS as noted above, otherwise negative Physical Exam: GEN: Alert, oriented, NAD HEENT: Normal conjunctiva, sclera anicteric CV: Regular rate and rhythm, no edema Pulm: Nonlabored respirations on room air, clear bilaterally ABD: Soft, nontender, nondistended MSK: No joint tenderness Integumentary: No rashes Neuro: Normal speech, normal affect R permacath in place PD catheter in place vitals reviewed Problem List: Chest pain Low-grade fever ESRD on PD, has HD access Incidental 6mm partially calcified lingular nodule Hypertension Chest pain troponins negative x3; monitor on tele echo(12/18/22): 72% EF, mild MR, mild KS Cardiology consulted Pain-free at this time. Reports last stress test in April-normal has never had a heart catheterization Low-grade fever Temp 100.2 on admission, no leukocytosis noted CT chest negative for infectious findings does not make much urine denies urinary symptoms. Negative for COVID/influenza. Continue empiric rocephin / vanc per nephrology given the presence of his HD/PD catheters and concern for possible bacteremia procal: 1.06 blood cx: NGTD ESRD on PD, has HD access Nephrology consulted dialysis per nephrology Incidental 6mm partially calcified lingular nodule 6 millimeter partially calcified lingular nodule probably benign noted on CT 08/[address] in 6 months for further monitoring Hypertension Continue home medication. VTE: heparin sq Code: Full Dispo: home
[2023-08-20] MEDS: ASPIRIN EC 81 MG TAB PO SCH (09:33)
[2023-08-20] MEDS: HEPARIN 5000 UNIT/ML 1 ML VIAL SQ SCH (09:34)
[2023-08-20 12:40] VITALS: O2SAT 100
[2023-08-20] MEDS ORDERED: VANCOMYCIN 1 GM in NA CHLORIDE 0.9% 250 ML IVPB SCH (16:00)
--- NOTE | 2023-08-20 17:06 | EKG ---
Test Date: 2023-08-18 Test Time: 17:49:58 Business Economist: DEMETRICE MEASUREMENT RESULTS: Intervals: Rate: 91 MO: 140 QRSD: 68 QT: 358 QTc: 440 [place]: P: 35 MO: 140 QRS: 38 T: 23 INTERPRETIVE STATEMENTS: Normal sinus rhythm Cannot rule out Anterior infarct, age undetermined Abnormal ECG Compared to ECG 08/14/2023 08:00:47 Myocardial infarct finding now present Electronically Signed On 08-20-23 17:04:05 CDT by Scott Echavarria
[2023-08-20 17:38] VITALS: BP 174/82; TEMP 97.2
--- NOTE | 2023-08-20 21:46 | CON ---
Date of Consultation: 08/20/2023 Reason For Consultation: Chest pain. History Of Present Illness: 38-year-old male with history of end-stage renal disease, on hemodialysi s, hypertension, and presented with chest pain. It was at rest, sharp pain, lasted for 20 minutes an d resolved by itself and it was not exertional and it does not have any typical features. I saw him in the office recently and I did a stress test on him that was entirely normal. Past Medical History: As outlined above in the HPI. Medications: Refer to reconciliation sheet for detailed list. Allergies: NO KNOWN DRUG ALLERGIES. Family History: No premature coronary artery disease or cancer. Social History: He does not smoke or drink. Does not use any drugs. Review of Systems: All systems reviewed and they were negative except what mentioned in HPI. Physical Examination: Vital Signs: Reviewed. Head and Neck: Pupils are equal, reactive to light. Intact eye movements. No JVD. No cervical lym phadenopathy. Neck is supple. Thyroid is not enlarged. Lungs: Clear to auscultation bilaterally. No rhonchi, wheezing, or crackles. No accessory muscle u se. Heart: Regular rate and rhythm. No extra sounds. Abdomen: Soft, nontender. Bowel sounds positive. No organomegaly. No masses or hernia. No rigidi ty or rebound. Extremities: No edema, clubbing, cyanosis. Intact pulses. Skin: No rash or nodule. Neurologic: Alert, awake, oriented x3. No acute focal deficits appreciated. Lymph Nodes: No cervical or axillary lymphadenopathy. Investigations: Cardiac enzymes x3 are negative. BUN 69, creatinine is 18. Assessment And Recommendations: 1.Chest pain. It is atypical. Cardiac enzymes are negative. Recent stress test within the past mo nth was negative. No further cardiac workup is recommended. This is likely noncardiac. If patient continues to have chest pain on an outpatient basis, especially if it is exertional then we will plan for outpatient coronary angiogram. From cardiology standpoint, he can be released. 2.End-stage renal disease, on dialysis, to be continued. 3.Hypertension and blood pressure is elevated. Needs better blood pressure control. Recommend to s tart amlodipine 5 mg daily. SR/MODL Voice ID: [id number] Report ID: [id number]
--- NOTE | 2023-08-21 00:39 | PN ---
Date of Progress Note: 08/20/2023 Chief Complaint: End-stage renal disease, previously on hemodialysis and currently on peritoneal stephanie lysis. Subjective: The patient presented to the hospital because of chest pain. He was admitted for evalua tion and cardiac workup. He was seen by a rn advice today and the recommendation from Cardiology was to discharge him for outpatient followup. Patient was found to have low-grade fever up to 100.2 when he came to emergency room, although he denied cough, hemoptysis. He denies abdominal pain or cherry zy PD fluid. The patient was also negative for COVID and influenza. CT scan of the chest shows 6 mm partially calcified irregular nodule but otherwise was unremarkable. Review of Systems: The patient denies chest pain, palpitation. Physical Examination: Lungs: Clear to auscultation bilaterally. Heart: S1, S2. Abdomen: Soft. Extremities: No edema. Impression And Plan: 1.End-stage renal disease. The patient will resume PD dialysis. Lab work today showed normal potas sium. No evidence of metabolic acidosis. 2.The patient does not have fluid overload. Continue p.o. fluid restriction, low-sodium diet, and u ltrafiltration with PD dialysis. 3.Anemia. Hemoglobin level ranging from 8.2 to 8.5. Patient denies any symptoms of GI bleeding. M onitor hemoglobin level and continue TAMMIE with peritoneal dialysis. 4.Hypertension. Continue blood pressure medication. Serial blood cultures were obtained and pending. 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 The patient is asymptomatic. The patient will have further workup outpatient as marilin QUIROZ/MODL Voice ID: [id number] Report ID: [id number]
== END 2023-08-20 18:12 | disposition home or self-care (01) ==
LOC: ER 17:27 → ERHOLD 21:20 → 2ND 21:54 → INTOOBSV 08-20 15:52 → OBSVTOIN 08-20 15:52
PROVIDERS: ADMIT Internal Medicine Sleep Medicine; ATTEND Hospitalist
DX: R07.89 Other chest pain (principal); I12.0 Hypertensive chronic kidney disease with stage 5 chronic kidney disease or end stage renal disease; N18.6 End stage renal disease; G43.909 Migraine, unspecified, not intractable, without status migrainosus; I25.10 Atherosclerotic heart disease of native coronary artery without angina pectoris; I50.43 Acute on chronic combined systolic (congestive) and diastolic (congestive) heart failure; N25.0 Renal osteodystrophy; D64.9 Anemia, unspecified; Z99.2 Dependence on renal dialysis; Z20.822 Contact with and (suspected) exposure to COVID-19
CPT/HCPCS: 96365; 93005; 87040 ×2; 85025 ×3; 81001; 80048 ×2; 36415 ×2; 85610; 80061; 83605; 85730; 80202; 84484 ×3; 80053; 84145; 87635; 87804 ×2; 71250; 71045; 99285; J1644 ×3; J0696 ×2; J7050; J7040; G0378 ×4; J0360

== ENCOUNTER 2024-04-02 18:42 | Emergency (ER) | payer OTHER ==
[2024-04-02] MEDS ORDERED: NA CHLORIDE 0.9% 1,000 ML ONE (19:03)
[2024-04-02 20:08] LABS: Absolute Basophils 0.1 K/uL (0-0.5); Absolute Eosinophils 0.4 K/uL (0-0.5); Absolute Lymphocytes (CBC) 2.4 K/uL (0.7-4.9); Absolute Monocytes 0.8 K/uL (0.1-1.3); Absolute Neutrophil 4.6 K/uL (1.8-8.0); Basophils % 1.3 % (0-1.3); Eosinophils % 4.9 % (0-4.4); Hematocrit 38.4 % (39.6-49.0); Hemoglobin 12.8 g/dL (13.6-17.9); Lymphocytes % 29.1 % (15.3-44.8); MCH 33.5 pg (27.0-35.0); MCHC 33.3 g/dL (32.0-36.0); MCV 100.7 fL (80-100); MPV 7.1 fL (7.6-11.3); Monocytes % 9.3 % (3.3-12.3); Neutrophils % 55.4 % (41.7-73.7); Platelets 471 thou/uL (152-406); RBC Red Blood Cell Count 3.82 M/uL (4.33-5.43); Red Cell Distribution Width 18.6 % (12.1-15.2)
[2024-04-02 20:11] LABS: PT Prothrombin Time 11.5 SECONDS (9.5-12.5); Protime INR 1.05
--- NOTE | 2024-04-02 20:38 | RAD REPORT ---
EXAM DESCRIPTION: ySlvie Single View04/02/2024 8:13 pm CLINICAL HISTORY: Chest pain COMPARISON: 2022 FINDINGS: The lungs appear clear of acute infiltrate. The heart is normal size IMPRESSION: No acute abnormalities displayed
[2024-04-02 20:59] LABS: Anion Gap 15.6 mEq/L (5.0-15.0); Magnesium 2.6 mg/dL (1.6-2.4); Potassium 3.6 mEq/L (3.5-5.1)
--- NOTE | 2024-04-02 21:25 | ER ---
Nurse's Notes [facility] Name: Connor Velázquez Age: 38 yrs Sex: Male : 1985 Arrival Date: 04/02/2024 Time: 18:42 Bed 19 Private MD: Diagnosis: Hypotension, unspecified;Dehydration;End stage renal disease Presentation: 04/02 18:54 Chief complaint:. db 18:54 Chief complaint: Patient states: PATIENT SEEN BY PCP FOR REGULAR CHECK UP AND SENT TO ED FOR LOW BP. "PASSED OUT YESTERDAY" AND WOKE UP NEXT TO HIS TRUCK YESTERDAY. HX KIDNEY FAILURE AND PERITONEAL DIALYSIS. Coronavirus screen: Client denies travel out of the [place] in the last 14 days. At this time, the client does not indicate any symptoms associated with coronavirus-19. Ebola Screen: Patient negative for fever greater than or equal to 101.5 degrees Fahrenheit, and additional compatible Ebola Virus Disease symptoms Patient denies exposure to infectious person. Patient denies travel to an Ebola-affected area in the 21 days before illness onset. No symptoms or risks identified at this time. Initial Sepsis Screen: Does the patient meet any 2 criteria? No. Patient's initial sepsis screen is negative. Does the patient have a suspected source of infection? No. Patient's initial sepsis screen is negative. Risk Assessment: Do you want to hurt yourself or someone else? Patient reports no desire to harm self or others. Onset of symptoms was April 02, 2024. 18:54 Method Of Arrival: Ambulatory 18:54 Acuity: EDGARDO 3 db 18:58 Acuity: EDGARDO 2 cm10 Triage Assessment: 18:55 General: Appears in no apparent distress. comfortable, Behavior is calm, cooperative. db Pain: Denies pain. Neuro: Level of Consciousness is awake, alert, obeys commands, Oriented to person, place, time, situation. Respiratory: Airway is patent Respiratory effort is even, unlabored, Respiratory pattern is regular, symmetrical. GI: PERITONEAL DIALYSIS. Historical: - Allergies: 18:55 No Known Allergies; db - PMHx: 18:55 Congestive heart failure; Hypertensive disorder; PERITONEAL DIALYSIS; db - PSHx: 18:55 Cholecystectomy; db - Immunization history:: Adult Immunizations unknown. - Infectious Disease History:: Denies. - Social history:: Smoking status: Patient denies any tobacco usage or history of. Screenin:00 [facility] ED Fall Risk Assessment (Adult) History of falling in the last 3 months, jb4 including since admission No falls in past 3 months (0 pts) Confusion or Disorientation No (0 pts) Intoxicated or Sedated No (0 pts) Impaired Gait No (0 pts) Mobility Assist Device Used No (0 pt) Altered Elimination No (0 pt) Score/Fall Risk Level 0 - 2 = Low Risk Oriented to surroundings, Maintained a safe environment. Abuse screen: Denies threats or abuse. Nutritional screening: No deficits noted. Tuberculosis screening: No symptoms or risk factors identified. Assessment: 19:12 General: Appears in no apparent distress. comfortable, Behavior is calm, cooperative, jb4 appropriate for age. Pain: Denies pain. Neuro: Level of Consciousness is awake, alert, obeys commands, Oriented to person, place, time, situation. Cardiovascular: Patient's skin is warm and dry. Respiratory: Airway is patent Respiratory effort is even, unlabored, Respiratory pattern is regular, symmetrical. GI: No signs and/or symptoms were reported involving the gastrointestinal system. : No signs and/or symptoms were reported regarding the genitourinary system. EENT: No signs and/or symptoms were reported regarding the EENT system. Derm: Skin is intact, Skin is pink, warm \\T\\ dry. Musculoskeletal: Circulation, motion, and sensation intact. Range of motion: intact in all extremities. 19:52 Reassessment: Patient appears in no apparent distress at this time. Patient and/or jb4 family updated on plan of care and expected duration. Pain level reassessed. Patient is alert, oriented x 3, equal unlabored respirations, skin warm/dry/pink. Vital Signs: 18:54 BP 89 / 71; Pulse 105; Resp 18; Temp 97.7; Pulse Ox 100% ; Weight 96.62 kg; Height 5 db ft. 11 in. ; 19:52 BP 88 / 76; Pulse 96; Resp 16; Pulse Ox 100% on R/A; jb4 21:00 BP 99 / 76; Pulse 96; Resp 16; Pulse Ox 99% on R/A; jb4 18:54 Body Mass Index 29.71 (96.62 kg, 180.34 cm) db ED Course: 18:45 Patient arrived in ED. im 18:45 Ashely Nova PA-C is PHCP. sb4 18:45 Eliane Kovacs MD is Attending Physician. sb4 18:55 Triage completed. db 18:55 Arm band placed on left wrist. db 19:12 Yosef Allen, RN is Primary Nurse. jb4 20:01 Inserted saline lock: 20 gauge in right upper arm, using aseptic technique. Blood vc1 collected. Accessed peripheral vein via ultrasound, utilizing dynamic ultrasound technique Clean \\T\\ dry. Dressing intact. Good blood return. 20:15 XRAY Chest (1 view) In Process Unspecified. EDMS 21:38 Patient has correct armband on for positive identification. Bed in low position. Call jb4 light in reach. Side rails up X 1. Provided Education on: Discharge instructions.. 21:38 No provider procedures requiring assistance completed. IV discontinued, intact, jb4 bleeding controlled, No redness/swelling at site. Pressure dressing applied. Administered Medications: 19:02 Not Given (Other Intervention Used): ns 0.9% 250 ml IV at calculated rate once sb4 20:04 Drug: NS 0.9% IV 1000 ml IV at 1 bolus Per protocol; 1000 mL bolus Route: IV; Rate: 1 jb4 bolus; Site: right antecubital; 21:36 Follow up: Response: No adverse reaction; Marked relief of symptoms; IV Status: jb4 Completed infusion; IV Intake: 1000ml Medication: 21:00 VIS not applicable for this client. jb4 Intake: 21:36 IV: 1000ml; Total: 1000ml. jb4 Outcome: 21:25 Discharge ordered by MD. sb4 21:38 Discharged to home ambulatory, with family, jb4 21:38 Condition: stable 21:38 Discharge instructions given to patient, Instructed on discharge instructions, follow up and referral plans. Demonstrated understanding of instructions, follow-up care, 21:39 Patient left the ED. jb4 Signatures: Dispatcher [employer] EDOH Yosef Allen RN RN jb4 Elvira Estrada RN RN vc1 Shani Chaidez RN RN Ashely Granger PA-C PA-C sb4 Elva Kaba Clarissa RN RN cm10 Corrections: (The following items were deleted from the chart) 18:57 18:54 Chief complaint: Patient states: PATIENT SEEN BY PCP FOR REGULAR CHECK UP AND db SENT TO ED FOR LOW BP. db 18:57 18:54 BP 89 / 71; Pulse 105bpm; Resp 18bpm; Pulse Ox 100%; Temp 97.7F; db db
--- NOTE | 2024-04-02 21:25 | EDPHYS ---
Physician Documentation [facility] Name: Connor Velázquez Age: 38 yrs Sex: Male : 1985 Arrival Date: 04/02/2024 Time: 18:42 Bed 19 Private MD: ED Physician Eliane Kovacs HPI: 04/02 19:05 This 38 yrs old Black Male presents to ER via Ambulatory with complaints of Low blood sb4 pressure. 19:05 patient was at a routine nephrology appt today, found to have a BP of 50 systolic and sb4 send to ED for further evaluation. states he felt dizzy and passed out yesterday, has continued to feel dizzy today. denies any recent changes in meds or peritoneal dialysis. says he has been off of his antihypertensives for 1 month now. Historical: - Allergies: 18:55 No Known Allergies; db - PMHx: 18:55 Congestive heart failure; Hypertensive disorder; PERITONEAL DIALYSIS; db - PSHx: 18:55 Cholecystectomy; db - Immunization history:: Adult Immunizations unknown. - Infectious Disease History:: Denies. - Social history:: Smoking status: Patient denies any tobacco usage or history of. ROS: 19:05 Constitutional: Negative for fever, chills, and weight loss, sb4 19:05 Neuro: Positive for dizziness, 19:05 All other systems are negative, Exam: 19:05 Constitutional: This is a well developed, well nourished patient who is awake, alert, sb4 and in no acute distress. Head/Face: Normocephalic, atraumatic. Eyes: Extra-ocular motions intact. Periorbital areas with no swelling, redness, or edema. ENT: Mucous membranes moist. Cardiovascular: Regular rate and rhythm with a normal S1 and S2. Respiratory: Lungs have equal breath sounds bilaterally, clear to auscultation and percussion. No rales, rhonchi or wheezes noted. No increased work of breathing, no retractions or nasal flaring. Abdomen/GI: Soft, non-tender, no distension. Skin: Warm, dry with normal turgor. Normal color with no rashes, no lesions, and no evidence of cellulitis. MS/ Extremity: Pulses equal, no cyanosis. Neurovascular intact. Full, normal range of motion. Neuro: Awake and alert, GCS 15, oriented to person, place, time, and situation. Motor strength 5/5 in all extremities. Sensory grossly intact. Vital Signs: 18:54 BP 89 / 71; Pulse 105; Resp 18; Temp 97.7; Pulse Ox 100% ; Weight 96.62 kg; Height 5 db ft. 11 in. ; 19:52 BP 88 / 76; Pulse 96; Resp 16; Pulse Ox 100% on R/A; jb4 21:00 BP 99 / 76; Pulse 96; Resp 16; Pulse Ox 99% on R/A; jb4 18:54 Body Mass Index 29.71 (96.62 kg, 180.34 cm) db MDM: 18:47 Patient medically screened. sb4 22:03 Data reviewed: vital signs, nurses notes, lab test result(s), EKG, radiologic studies, sb4 I have discussed the patient's presentation/case with the attending Emergency Department Physician;. Consideration of Admission/Observation Escalation of care including admission/observation considered. Historians other than the Patient: Spouse/Significant Other: . Care significantly affected by the following chronic conditions: Congestive Heart Failure, Chronic Kidney Disease. Counseling: I had a detailed discussion with the patient and/or guardian regarding the historical points, exam findings, and any diagnostic results supporting the discharge/admit diagnosis, lab results, radiology results, to return to the emergency department if symptoms worsen or persist or if there are any questions or concerns that arise at home. ED course: recommended admission to observe blood pressure. patient prefers to go home. I think that is reasonable. he is asymptomatic, BP has improved. 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 the settings have already been adjusted appropriately. patient will monitor his BP at home and knows to return to the ED if BP worsens. him and verbalize understanding. 04/02 18:59 Order name: Basic Metabolic Panel; Complete Time: 21:03 sb4 04/02 18:59 Order name: CBC with Diff; Complete Time: 20:10 sb4 04/02 18:59 Order name: Magnesium; Complete Time: 21:03 sb4 04/02 18:59 Order name: NT PRO-BNP; Complete Time: 21:03 sb4 04/02 18:59 Order name: PT-INR; Complete Time: 20:13 sb4 04/02 18:59 Order name: Troponin HS; Complete Time: 21:03 sb4 04/02 18:59 Order name: XRAY Chest (1 view); Complete Time: 20:42 sb4 04/02 18:59 Order name: EKG; Complete Time: 18:59 sb4 04/02 18:59 Order name: Cardiac monitoring; Complete Time: 19:23 sb4 04/02 18:59 Order name: EKG - Nurse/Tech; Complete Time: 19:23 sb4 04/02 18:59 Order name: IV Saline Lock; Complete Time: 20:08 sb4 04/02 18:59 Order name: Labs collected and sent; Complete Time: 19:23 sb4 04/02 18:59 Order name: O2 Per Protocol; Complete Time: 19:23 sb4 04/02 18:59 Order name: O2 Sat Monitoring; Complete Time: 19:23 sb4 EC:23 Rate is 97 beats/min. Rhythm is regular, Normal Sinus Rhythm. DE interval is normal at sb4 140 msec. QRS interval is normal at 76 msec. QT interval is normal at 330 msec. No Q waves. T waves are Normal. No ST changes noted. Clinical impression: Normal ECG. Interpreted by me. Reviewed by me. Administered Medications: 19:02 Not Given (Other Intervention Used): ns 0.9% 250 ml IV at calculated rate once sb4 20:04 Drug: NS 0.9% IV 1000 ml IV at 1 bolus Per protocol; 1000 mL bolus Route: IV; Rate: 1 jb4 bolus; Site: right antecubital; 21:36 Follow up: Response: No adverse reaction; Marked relief of symptoms; IV Status: jb4 Completed infusion; IV Intake: 1000ml Disposition Summary: 04/02/24 21:25 Discharge Ordered Notes: Location: Home sb4 Problem: new sb4 Symptoms: have improved sb4 Condition: Stable sb4 Diagnosis - Hypotension, unspecified sb4 - Dehydration sb4 - End stage renal disease sb4 Followup: sb4 - With: Emergency Department - When: As needed - Reason: Trouble breathing, Worsening of condition Discharge Instructions: - Discharge Summary Sheet sb4 - Peritoneal Dialysis Information, [id number] sb4 - Hypotension, [id number] sb4 Forms: - Patient Portal Instructions sb4 - Leadership Thank You Letter sb4 Signatures: Dispatcher [employer] EDMS Yosef Allen, RN RN jb4 Shani Chaidez, RN RN Ashely Granger PA-C PAMira sb4 Corrections: (The following items were deleted from the chart) 18:59 18:59 BASIC METABOLIC PANEL+C.LAB.BRZ ordered. EDMS EDMS 18:59 18:59 CBC+H.LAB.BRZ ordered. EDMS EDMS 18:59 18:59 MAGNESIUM+C.LAB.BRZ ordered. EDMS EDMS 18:59 18:59 PROBNP+C.LAB.BRZ ordered. EDMS EDMS 18:59 18:59 PROTIME (+INR)+COAG.LAB.BRZ ordered. EDMS EDMS 18:59 18:59 Troponin High Sensitivity+C.LAB.BRZ ordered. EDMS EDMS
[2024-04-02 21:57] VITALS: BP 99/76; TEMP 97.7; O2SAT 99
--- NOTE | 2024-04-04 16:56 | EKG ---
Test Date: 2024-04-02 Test Time: 19:20:07 Certified Alcohol Counselor: HUBERT MEASUREMENT RESULTS: Intervals: Rate: 97 [place]: 140 QRSD: 76 QT: 330 QTc: 419 [place]: P: 26 [place]: 140 QRS: 15 T: 31 INTERPRETIVE STATEMENTS: Normal sinus rhythm Normal ECG Compared to ECG 08/18/2023 17:49:58 Myocardial infarct finding no longer present Electronically Signed On 04-04-24 16:49:55 CDT by Scott Echavarria
== END 2024-04-02 21:39 | disposition home or self-care (01) ==
LOC: ER 18:42
DX: I95.9 Hypotension, unspecified (principal); E86.0 Dehydration; I13.2 Hypertensive heart and chronic kidney disease with heart failure and with stage 5 chronic kidney disease, or end stage renal disease; N18.6 End stage renal disease; I50.9 Heart failure, unspecified; Z99.2 Dependence on renal dialysis
CPT/HCPCS: 96361; 93005; 85025; 80048; 36415; 83735; 85610; 84484; 83880; 71045; 96360; 99285; J7030